=== PATIENT | female | born 1960 | race African-American/Black ===

== ENCOUNTER 2020-08-02 08:58 | Emergency (ER) | payer OTHER, SELFPAY ==
--- NOTE | ~2020-08-02 | XR_ITS ---
EXAMINATION: XR knee RT min 4V DATE: 08/02/2020 09:32 INDICATION: Anterior right knee pain following exercise 2 days prior with palpable pop TECHNIQUE: Anteroposterior, 2 oblique and crosstable lateral views of the right knee were obtained COMPARISON: None. FINDINGS: Alignment is normal. No fracture. Joint spaces appear normal although joint space narrowing can be u nderestimated on nonweightbearing imaging. Borderline right knee joint effusion without layering lipo hemarthrosis. Mild prepatellar edema. IMPRESSION: 1. Borderline right knee joint effusion. No osseous abnormality. Reviewed, dictated and finalized at location B.
--- NOTE | 2020-08-02 09:04 | ED.GENADULT ---
HPI - General Adult General Chief complaint: Extremity Injury, Lower Stated complaint: right knee pain Time Seen by Provider: 08/02/20 09:20 Source: patient Mode of arrival: ambulatory Limitations: no limitations History of Present Illness HPI narrative: 59-year-old female patient presents to the [facility] with complaints of right knee pain. Patient states she was working out about 2 days ago and states that she heard a pop and since then she has had swelling and pain to the knee. Patient states it does hurt to extend as well as bend the knee. Patient states she has been icing as well as taking Tylenol for the pain. Patient does have history of RA and does take Plaquenil for this. Related Data Home Medications Medication Instructions Recorded Confirmed Daily Multivitamin 08/02/20 bacillus coagulans-inulin cap PO 08/02/20 [Probiotic Formula (inulin)] cetirizine mg 08/02/20 fluticasone propionate INTRANASAL 08/02/20 hydroxychloroquine 08/02/20 Allergies Allergy/AdvReac Type Severity Reaction Status Date / Time Sulfa (Sulfonamide Allergy Mild Anaphylaxis Verified 08/02/20 09:28 Antibiotics) ephedrine Allergy Unknown Anaphylaxis Verified 08/02/20 09:28 penicillin G Allergy Unknown Anaphylaxis Verified 08/02/20 09:28 phenobarbital Allergy Unknown Anaphylaxis Verified 08/02/20 09:28 theophylline Allergy Unknown Anaphylaxis Verified 08/02/20 09:28 Review of Systems Review of Systems: Narrative: CONSTITUTIONAL: Denies fever, chills, or sweats. EYES: Denies visual changes, redness, or discharge. ENT: Denies rhinorrhea, congestion, sore throat, or otalgia. CARDIOVASCULAR: Denies chest pain, palpitations, or edema. RESPIRATORY: Denies cough or dyspnea. GASTROINTESTINAL: Denies abdominal pain, nausea, vomiting, or diarrhea. GENITOURINARY: Denies dysuria or hematuria. SKIN: Denies rash or itching. MUSCULOSKELETAL: Denies back pain, joint pain, or myalgia. Positive right knee pain NEUROLOGIC: Denies headache, numbness, or weakness. PSYCHIATRIC: Denies anxiety or depression. [facility] Past Medical History Medical History (Updated 08/02/20 @ 09:08 by JUSTIN Carroll) Asthma Bacterial meningitis Blood disorder IgA deficiency Cardiac disorder Questionable hole in heart, pericarditis 30 years ago Carpal tunnel syndrome Bilateral wrist Chronic back pain Sciatica, 2 herniated disks Diverticulitis Eczema Endometriosis Fractures Ankle Peripheral neuropathy Rheumatoid arthritis Surgical History Surgical History (Updated 08/02/20 @ 09:08 by JUSTIN Carroll) History of appendectomy Comments At the time of my signature I agree with nursing past medical history, surgical, social, and family history. There is no relevant family history pertinent to the presenting complaint. Exam Narrative: Exam Narrative: GENERAL: Well-appearing, well-nourished, and in no acute distress. HEAD: Normocephalic, atraumatic. EYES: PERRLA and EOMI. ENT: Nares clear, no rhinorrhea or epistaxis. Mucous membranes moist. NECK: Supple. No lymphadenopathy CHEST: Clear to auscultation. No respiratory distress. HEART: Regular rate and rhythm. No murmur heard. Normal peripheral pulses. ABDOMEN: Soft, nontender, nondistended, normal active bowel sounds. EXTREMITIES: Patient is able to bear weight and ambulate but does have increase in pain to the right knee when doing so. No surface trauma, STS. No overlying erythema or warmth. The R knee is without obvious asymmetry or deformity when compared to the L knee. Patient is able to do deep knee bend with symmetry, fully extend knee but does complain of pain with these motions, no pain with internal and external rotation. tendernss to palpation of the patella, patient does appear to have effusion and ballottement to the top of the right knee. No tenderness over the infrapatellar tendon. No tenderness over the medial or lateral joint lone ot the medial or lateral tibial plateaus. no tend
[2020-08-02 09:08] VITALS: BP 126/71; PULSE 86; RESP 16; TEMP 36.8; O2SAT 99
== END 2020-08-02 10:07 | disposition home or self-care (01) ==
PROVIDERS: Emergency Provider Nurse Practitioner Family
DX: M25.461 Effusion, right knee (principal); J45.909 Unspecified asthma, uncomplicated; D80.2 Selective deficiency of immunoglobulin A [IgA]; N80.9 Endometriosis, unspecified; G62.9 Polyneuropathy, unspecified; M06.9 Rheumatoid arthritis, unspecified
CPT/HCPCS: 73564; 99213; G0463

== ENCOUNTER 2020-08-23 08:38 | Emergency (ER) | payer OTHER, SELFPAY ==
--- NOTE | ~2020-08-23 | US_ITS ---
EXAMINATION: US venous doppler LE EXAM DATE: 08/23/2020 11:53 INDICATION: swelling SWELLING . TECHNIQUE: Multiple grayscale, color flow and Doppler images of the lower extremity deep venous syste ms bilaterally were obtained and reviewed. There is no prior study for comparison. FINDINGS: Right side: The right common femoral, femoral and profunda veins demonstrate normal color flow, respi ratory variation, augmentation and compressibility. Compressibility, color flow confirmed within the right popliteal, posterior tibial, peroneal, and greater saphenous veins. Left side: The left common femoral, femoral and profunda veins demonstrate normal color flow, respira tory variation, augmentation and compressibility. Compressibility, color flow confirmed within the l eft popliteal, posterior tibial, peroneal, and greater saphenous veins. IMPRESSION: 1. No lower extremity deep venous thrombosis bilaterally. Reviewed, dictated and finalized at location B. TECHNICIAN
--- NOTE | ~2020-08-23 | XR_ITS ---
EXAMINATION: XR chest 1V portable EXAM DATE: 08/23/2020 11:00 INDICATION: Bilateral leg edema. Rheumatoid arthritis. Lethargic. TECHNIQUE: Portable AP frontal chest x-ray was obtained. Comparison is made to prior examination from 11/22/2009. FINDINGS: Left lower lobe granuloma. The lungs are otherwise clear. There are no pleural effusions. Cardiac silhouette is prominent but magnified on this AP technique. There is no pneumothorax suspe cted. The bones and soft tissues are unremarkable. IMPRESSION: Normal chest x-ray exam. Reviewed, dictated and finalized at location B. STACKER OPERATOR IMPRESSION: Normal chest x-ray exam.
[2020-08-23 08:42] VITALS: BP 157/105; PULSE 73; RESP 16; TEMP 36.3; O2SAT 100
[2020-08-23 09:00] VITALS: BP 146/96; PULSE 70; RESP 16; TEMP 37.2; O2SAT 100
--- NOTE | 2020-08-23 10:18 | ECG_ITS ---
Measurements Intervals [place] Rate: 68 P: 15 AL: 163 QRS: -21 QRSD: 97 T: 21 QT: 371 QTc: 395 Interpretive Statements SINUS RHYTHM LOW QRS VOLTAGE IN PRECORDIAL LEADS BASELINE ARTIFACT- I, II, III, AVR, AVL, AVF, V1 BORDERLINE ECG Electronically Signed On 08-23-2020 15:46:29 VERIFYING SPECIALIST by Lux Vu D.O.
[2020-08-23 11:06] LABS: Basophils Percent Auto 0.4 % (0.2-1.2); Eosinophils Absolute Auto 0.2 K/mm3 (0-0.3); Eosinophils Percent Auto 3.3 % (0-4.4); Hematocrit 34.7 % (37.0-47.0); Hemoglobin 11.9 g/dL (12.0-15.0); Lymphocytes Absolute Auto 1.94 K/mm3 (0.9-3.2); Lymphocytes Percent Auto 40.6 % (18.3-44.2); Mean Corpuscular HGB Conc 34.3 g/dl (32-36); Mean Corpuscular Hemoglobin 29.4 pg (26-34); Mean Corpuscular Volume 85.7 fl (80-100); Mean Platelet Volume 10.2 fl (7.4-10.4); Monocytes Absolute Auto 0.3 K/mm3 (0.1-0.6); Monocytes Percent Auto 5.4 % (2.6-8.5); Neutrophils Absolute Auto 2.4 K/mm3 (1.3-6.7); Neutrophils Percent Auto 50.3 % (45.5-73.1); Platelet Count Result 224 k/mm3 (150-375); Red Blood Count 4.05 M/mm3 (4.2-5.4); Red Cell Distribution Width 11.9 % (11.5-14.5); White Blood Count 4.8 K/mm3 (4.5-10.0)
[2020-08-23 11:17] LABS: INR 1.1; Prothrombin Time 14.3 Seconds (11.1-14.7)
[2020-08-23 11:18] LABS: Partial Thromboplastin Time 29.7 SECONDS (22.3-36.8)
[2020-08-23 11:22] LABS: Anion Gap 3 mmol/L (8-16); Blood Urea Nitrogen 23 mg/dL (7-17); Calcium 8.9 mg/dL (8.4-10.2); Carbon Dioxide 30 mmol/L (22-30); Chloride 107 mmol/L (98-107); Estimated CRCL calculation 55 ml/min; Estimated Glomerular Filt Rate > 60; Glucose 84 mg/dL (65-105); Potassium 4.4 mmol/L (3.4-5.0); Sodium 140 mmol/L (137-145)
[2020-08-23 11:35] LABS: NT Pro B Type Natriuretic Pept 512 PG/ML (5-100); Troponin I < 0.012 ng/mL (0.000-0.034)
[2020-08-23 12:06] VITALS: BP 146/96; PULSE 64; RESP 12; O2SAT 99
--- NOTE | 2020-08-23 12:42 | ED.GENADULT ---
HPI - General Adult General Chief complaint: Extremity Problem,Nontraumatic Stated complaint: swelling lower legs Time Seen by Provider: 08/23/20 10:12 Source: patient Mode of arrival: ambulatory Limitations: no limitations History of Present Illness HPI narrative: Patient is a 60-year-old female who presents to emergency department for evaluation of lower extremity swelling bilaterally that has been present now for the last several days roughly a week patient denies similar occurrence in the past or other complaints and is otherwise resting comfortably in the room in no distress upon arrival denying any pain. Patient notes that she has been having intermittent headaches in the recent past Related Data Home Medications Medication Instructions Recorded Confirmed Daily Multivitamin DAILY 08/02/20 cetirizine mg DAILY 08/02/20 fluticasone propionate INTRANASAL BID 08/02/20 hydroxychloroquine DAILY 08/02/20 Allergies Allergy/AdvReac Type Severity Reaction Status Date / Time ephedrine Allergy Intermediate Anaphylaxis Verified 08/23/20 08:47 penicillin G Allergy Intermediate Anaphylaxis Verified 08/23/20 08:47 phenobarbital Allergy Intermediate Anaphylaxis Verified 08/23/20 08:47 Sulfa (Sulfonamide Allergy Intermediate Anaphylaxis Verified 08/23/20 08:47 Antibiotics) theophylline Allergy Intermediate Anaphylaxis Verified 08/23/20 08:47 Review of Systems Review of Systems: All systems reviewed & are unremarkable except as noted in HPI and below PMFSH Past Medical History Medical History Asthma Bacterial meningitis Blood disorder IgA deficiency Cardiac disorder Questionable hole in heart, pericarditis 30 years ago Carpal tunnel syndrome Bilateral wrist Chronic back pain Sciatica, 2 herniated disks Diverticulitis Eczema Endometriosis Fractures Ankle Peripheral neuropathy Rheumatoid arthritis Surgical History Surgical History History of appendectomy Social History Social History Gender identity (if verbalized by the patient): Female Exam Narrative: Exam Narrative: GENERAL: Well-appearing, well-nourished, and in no acute distress. HEAD: Normocephalic, atraumatic. EYES: PERRLA and EOMI. ENT: Nares clear, no rhinorrhea or epistaxis. Mucous membranes moist. NECK: Supple. No adenopathy or masses. No carotid bruits or JVD CHEST: Clear to auscultation. No respiratory distress. No wheezes rales or rhonchi HEART: Regular rate and rhythm. No murmur heard. Normal peripheral pulses. EXTREMITIES: Normal range of motion. 1+ edema to the bilateral lower extremities SKIN: Warm, dry, no rash. NEURO: No focal deficits. Alert and oriented x3. Neurovascularly intact. Capillary refill less than 2 seconds PSYCH: Normal mood and affect. Course Course Emergency Course: Patient in the room in no distress aware of case findings treatment plan diagnosis Vital Signs Vital signs: Vital Signs Temperature 97.4 F L 08/23/20 08:42 Pulse Rate 73 08/23/20 08:42 Respiratory Rate 16 08/23/20 08:42 Blood Pressure 157/105 H 08/23/20 08:42 Pulse Oximetry 100 08/23/20 08:42 Temperature 98.9 F 08/23/20 09:00 Pulse Rate 64 08/23/20 12:06 Respiratory Rate 12 08/23/20 12:06 Blood Pressure 146/96 H 08/23/20 12:06 Pulse Oximetry 99 08/23/20 12:06 Medical Decision Making [facility] Narrative Medical decision making narrative: Patients injury or pain is consistent with musculoskeletal etiology. No signs of neurological or vascular compromise on exam. Compartments and tisues are soft without signs of compartment syndrome. No high risk changes in the blood work or imaging will be referred back to primary care to watch for renal insufficiency pain is felt appropriate for further evaluation on an outpatient basis. Vital Signs Vital Sign
[2020-08-23 13:01] VITALS: BP 145/88; PULSE 67; RESP 16; O2SAT 100
== END 2020-08-23 13:03 | disposition home or self-care (01) ==
PROVIDERS: Emergency Medicine Emergency Medical Services; Emergency Provider Emergency Medicine
DX: R60.0 Localized edema (principal); N28.9 Disorder of kidney and ureter, unspecified; J45.909 Unspecified asthma, uncomplicated; N80.9 Endometriosis, unspecified; M06.9 Rheumatoid arthritis, unspecified; G62.9 Polyneuropathy, unspecified; D80.2 Selective deficiency of immunoglobulin A [IgA]
CPT/HCPCS: 36415; 71045; 80048; 83880; 84484; 85025; 85610; 85730; 93005; 93970; 96365; 99284; J0131

== ENCOUNTER 2020-09-03 11:54 | Emergency (ER) | payer OTHER, SELFPAY ==
[2020-09-03] VITALS (18 sets, daily range): BP systolic 146–171; BP diastolic 85–108; PULSE 74–117; RESP 12–33; TEMP 36.7; O2SAT 95–100
--- NOTE | ~2020-09-03 | XR_ITS ---
EXAMINATION: XR chest 1V portable EXAM DATE: 09/03/2020 15:03 INDICATION: Shortness of breath, high blood pressure TECHNIQUE: Portable AP frontal chest x-ray was obtained. There is no prior study for comparison. FINDINGS: The lungs are clear. There are no pleural effusions. Cardiac silhouette is prominent but magnified on this AP technique. There is no pneumothorax suspected. The bones and soft tissues are unremarkable. IMPRESSION: No acute cardiopulmonary findings. Reviewed, dictated and finalized at location A. MACHINE OPERATOR
--- NOTE | 2020-09-03 13:51 | ECG_ITS ---
Measurements Intervals [place] Rate: 73 P: 50 HI: 162 QRS: 10 QRSD: 105 T: 52 QT: 382 QTc: 421 Interpretive Statements SINUS RHYTHM LOW QRS VOLTAGE IN PRECORDIAL LEADS BASELINE ARTIFACT- V5 BORDERLINE ECG Electronically Signed On 09-03-2020 15:59:44 SOFTWARE TEAM LEADER by Lux Vu D.O.
[2020-09-03 14:21] LABS: Basophils Percent Auto 0.5 % (0.2-1.2); Eosinophils Absolute Auto 0.2 K/mm3 (0-0.3); Eosinophils Percent Auto 2.5 % (0-4.4); Hematocrit 38.3 % (37.0-47.0); Hemoglobin 13.2 g/dL (12.0-15.0); Immature Granulocyte Absolute 0.01 K/mm3 (0.00-0.031); Immature Granulocyte Percent A 0.2 % (0-0.5); Lymphocytes Absolute Auto 1.99 K/mm3 (0.9-3.2); Lymphocytes Percent Auto 31.6 % (18.3-44.2); Mean Corpuscular HGB Conc 34.5 g/dl (32-36); Mean Corpuscular Hemoglobin 29.9 pg (26-34); Mean Corpuscular Volume 86.8 fl (80-100); Mean Platelet Volume 9.8 fl (7.4-10.4); Monocytes Absolute Auto 0.4 K/mm3 (0.1-0.6); Neutrophils Absolute Auto 3.7 K/mm3 (1.3-6.7); Neutrophils Percent Auto 59.2 % (45.5-73.1); Platelet Count Result 243 k/mm3 (150-375); Red Blood Count 4.41 M/mm3 (4.2-5.4); Red Cell Distribution Width 11.9 % (11.5-14.5); White Blood Count 6.3 K/mm3 (4.5-10.0)
[2020-09-03 14:33] LABS: Alanine Aminotransferase 26 U/L (4-35); Albumin Level 3.5 g/dL (3.5-5.1); Alkaline Phosphatase 76 U/L (38-126); Anion Gap 4 mmol/L (8-16); Aspartate Amino Transferase 39 U/L (14-36); Bilirubin,Total 0.5 mg/dL (0.2-1.3); Blood Urea Nitrogen 19 mg/dL (7-17); Carbon Dioxide 30 mmol/L (22-30); Chloride 106 mmol/L (98-107); Estimated CRCL calculation 57 ml/min; Estimated Glomerular Filt Rate > 60; Glucose 85 mg/dL (65-105); Potassium 3.9 mmol/L (3.4-5.0); Sodium 140 mmol/L (137-145)
[2020-09-03] MEDS: hydroCHLOROthiazide 25 MG TABLET PO (14:34)
[2020-09-03 14:41] LABS: NT Pro B Type Natriuretic Pept 681 PG/ML (5-100)
--- NOTE | 2020-09-03 14:46 | ED.GENADULT ---
HPI - General Adult General Chief complaint: Unspecified Stated complaint: htn, swelling Time Seen by Provider: 09/03/20 13:49 Source: patient History of Present Illness HPI narrative: Patient is a 60 y/o female complaining of leg swelling and hypertension for last 2 weeks. She states that her BP was 170s/110s. She contacted her provider's office and was told to come to ED evaluation. There is no alleviating or exacerbating factor. She has no chest pain. She has some intermittent headache on the right side. Related Data Home Medications Medication Instructions Recorded Confirmed Daily Multivitamin DAILY 08/02/20 08/27/20 cetirizine mg DAILY 08/02/20 08/27/20 fluticasone propionate INTRANASAL BID 08/02/20 08/27/20 hydroxychloroquine DAILY 08/02/20 08/27/20 tramadol 50 mg tablet 50 mg PO Q4H PRN 08/27/20 08/27/20 Allergies Allergy/AdvReac Type Severity Reaction Status Date / Time ephedrine Allergy Intermediate Anaphylaxis Verified 08/27/20 12:32 penicillin G Allergy Intermediate Anaphylaxis Verified 08/27/20 12:32 phenobarbital Allergy Intermediate Anaphylaxis Verified 08/27/20 12:32 Sulfa (Sulfonamide Allergy Intermediate Anaphylaxis Verified 08/27/20 12:32 Antibiotics) theophylline Allergy Intermediate Anaphylaxis Verified 08/27/20 12:32 Review of Systems Constitutional: Constitutional: Denies chills, Denies fever(s), Reports headache(s) and Denies weakness Eyes: Eyes: Denies blurry vision ENT: Reports headache(s) and Denies neck pain Cardiovascular: Cardiovascular: Denies chest pain, Reports leg edema and Denies dyspnea Respiratory: Respiratory: Denies cough and Denies dyspnea Gastrointestinal: Gastrointestinal: Denies abdominal pain, Denies diarrhea, Denies nausea and Denies vomiting Genitourinary: Genitourinary: Denies hematuria and Denies dysuria Musculoskeletal: Musculoskeletal: Denies back pain and Denies neck pain Neurologic: Reports headache(s) and Denies weakness PMFSH Past Medical History Medical History Asthma Bacterial meningitis Blood disorder IgA deficiency Cardiac disorder Questionable hole in heart, pericarditis 30 years ago Carpal tunnel syndrome Bilateral wrist Chronic back pain Sciatica, 2 herniated disks Diverticulitis Eczema Endometriosis Fractures Ankle Peripheral neuropathy Rheumatoid arthritis Surgical History Surgical History H/O laparoscopy History of appendectomy Family History Family History Mother Hypertension Alzheimer disease Heart disease Father COPD (chronic obstructive pulmonary disease) Emphysema, unspecified Heart disease Sibling Arthritis Lupus Heart disease Social History Social History Smoking status: Never smoker Gender identity (if verbalized by the patient): Female Exam Const: General: no acute distress and well developed Orientation/consciousness: oriented to person, oriented to place, oriented to time and patient oriented x3 HENMT: Head: normocephalic Ears: external ears normal General nose exam: Normal external nose present Eyes: General: appearance normal, both eyes and all related structures Conjunctivae: conjunctivae normal Neck: Neck: normal visual inspection and full ROM Chest: Chest palpation & inspection: normal inspection of the chest and no tenderness Resp: Effort & Inspection: normal respiratory effort Auscultation: clear to auscultation bilaterally Cardio: Rate: regular rate Rhythm: regular rhythm GI: GI Palp: No abdominal tenderness and Yes Soft to palpation Skin: General skin exam: normal color and turgor normal Neuro: General: oriented to person, oriented to place, oriented to time and patient oriented x3 Cognition (Neuro): normal cognition Extrem: General: normal to inspection,
[2020-09-03 15:07] LABS: D Dimer 0.33 ug/mL (<0.48)
[2020-09-03] MEDS: lisinopriL 20 MG TABLET PO (15:51)
[2020-09-03] MEDS: ACETAMINOPHEN 325 MG TABLET 650 MG PO (15:51)
== END 2020-09-03 17:18 | disposition home or self-care (01) ==
PROVIDERS: Emergency Provider Emergency Medicine; PCP Internal Medicine
DX: I10 Essential (primary) hypertension (principal); M79.89 Other specified soft tissue disorders; J45.909 Unspecified asthma, uncomplicated; N80.9 Endometriosis, unspecified; G62.9 Polyneuropathy, unspecified; M06.9 Rheumatoid arthritis, unspecified; D80.2 Selective deficiency of immunoglobulin A [IgA]; R94.31 Abnormal electrocardiogram [ECG] [EKG]
CPT/HCPCS: 36415; 71045; 80053; 83880; 85025; 85380; 93005; 99283; A9270

== ENCOUNTER 2020-09-11 07:40 | Outpatient (CLI) | payer OTHER, SELFPAY ==
--- NOTE | 2020-09-11 07:46 | ECHO_ITS ---
Patient Info Name: Graciela Xiong Age: 60 years : 1960 Gender: Female Ht: 66 in Wt: 203 lbs BSA: 2.10 m2 HR: 74 bpm BP: 152 / 102 mmHg Heart Rhythm: Sinus Rhythm Technical Quality: Good Exam Date: 09/11/2020 8:04 AM Exam Location: [facility] Patient Status: Outpatient Admit Date: 09/11/2020 Staff Ordering Physician: Homar Braden APRN Solder Making Supervisor: Leon Sosa RDCS, RT Attending Provider: Homar Braden APRN Referring Physician: Sampson ORDAZ; Exam Type: CA echo doppler color flow Study Info Indications R60.0 - Localized edema Complete two-dimensional, color flow and Doppler transthoracic echocardiogram is performed. Strain analysis performed. Summary 1. Complete two-dimensional, color flow and Doppler transthoracic echocardiogram is performed. 2. Left ventricular chamber dimension is normal. 3. Left ventricular systolic function is normal, estimated at 60-65%. 4. There is no increased left ventricular wall thickness. 5. The left ventricular diastolic function is normal. 6. Global longitudinal strain is normal at -21 %. 7. There is mild tricuspid valve regurgitation. 8. Dilated inferior vena cava with <50% collapse upon inspiration consistent with elevated right atrial pressure, 15 mmHg. Left Ventricle Left ventricular chamber dimension is normal. Left ventricular systolic function is normal, estimated at 60-65%. There is no increased left ventricular wall thickness. The left ventricular diastolic function is normal. Global longitudinal strain is normal at -21 %. Right Ventricle Right ventricular chamber dimension is normal. Right ventricular systolic function is normal. Left Atria Left atrial chamber dimension is normal. Right Atria Right atrial chamber dimension is normal. Atrial Septum Intact interatrial septum visualized by color flow imaging. Aortic Valve The aortic valve is trileaflet. There is mild aortic valve sclerosis. There is no aortic valve stenosis. There is trace aortic valve regurgitation. Pulmonic Valve The pulmonic valve is normal. There is no pulmonic valve stenosis. There is trace pulmonic regurgitation. Mitral Valve The mitral valve has normal leaflets. There is no mitral valve stenosis. There is trace mitral valve regurgitation. Tricuspid Valve The tricuspid valve leaflets are normal. There is no significant tricuspid valve stenosis. There is mild tricuspid valve regurgitation. No pulmonary hypertension, estimated pulmonary arterial systolic pressure is 29 mmHg. Pericardium/Pleural The pericardium appears normal. There is no pericardial effusion. Inferior Vena Cava Dilated inferior vena cava with <50% collapse upon inspiration consistent with elevated right atrial pressure, 15 mmHg. Aorta The aortic root size at the sinus of Valsalva is normal. Left Ventricular Outflow Tract Name Value Normal LVOT 2D LVOT Diameter 2.0 cm LVOT Doppler LVOT Peak Gradient 3 mmHg LVOT Mean Gradient 1 mmHg LVOT VTI 17 cm
== END 2020-09-11 07:41 | disposition home or self-care (01) ==
PROVIDERS: PCP Internal Medicine; Visit Provider Nurse Practitioner
DX: R60.0 Localized edema (principal); I36.1 Nonrheumatic tricuspid (valve) insufficiency
CPT/HCPCS: 93306

== ENCOUNTER 2020-11-11 16:35 | Outpatient (CLI) | payer OTHER, SELFPAY ==
--- NOTE | ~2020-11-11 | US_ITS ---
EXAMINATION: US retroperitoneal comp DATE: 11/11/2020 17:02 INDICATION: Persistent proteinuria TECHNIQUE: Multiple ultrasound grayscale images of the kidneys were obtained. COMPARISON: None. FINDINGS: The right kidney measures 9.9 x 5.1 x 4.0 cm. The left kidney measures 9.9 x 5.2 x 6.2 cm. The kidney s demonstrate normal echogenicity. There is no hydronephrosis in either kidney. No stones identified . The bladder is normal. IMPRESSION: 1. Normal kidneys without hydronephrosis. Reviewed, dictated and finalized at location B. IONHOLDER INFORMATION CLERK
== END 2020-11-11 16:36 | disposition home or self-care (01) ==
PROVIDERS: PCP Internal Medicine; Visit Provider Internal Medicine Nephrology
DX: R80.1 Persistent proteinuria, unspecified (principal)
CPT/HCPCS: 76770

== ENCOUNTER → 2020-11-30 00:45 | Outpatient (CLI) | payer OTHER, SELFPAY ==
[2020-11-30 19:49] LABS: SARS-CoV-2 RNA PCR Negative
== END ==
PROVIDERS: PCP Internal Medicine; Visit Provider Internal Medicine Nephrology
DX: Z01.812 Encounter for preprocedural laboratory examination (principal); Z20.822 Contact with and (suspected) exposure to COVID-19
CPT/HCPCS: C9803; U0003; U0005

== ENCOUNTER 2020-12-03 07:44 | Outpatient (CLI) | payer OTHER, SELFPAY ==
[2020-11-27 13:14] VITALS: BMI 32.6
[2020-12-03] VITALS (11 sets, daily range): BP systolic 122–142; BP diastolic 82–97; PULSE 66–79; RESP 12–20; O2SAT 100
--- NOTE | ~2020-12-03 | US_ITS ---
EXAMINATION: US biopsy renal DATE: 12/03/2020 10:04 INDICATION: Proteinuria and hematuria TECHNIQUE: The procedure including the risks, benefits, and alternatives was discussed with the patie nt. Risks discussed included bleeding and infection. The patient understood the risks and agreed to p roceed. A timeout was performed to verify the patient's name, date of , and procedure to be p erformed. The skin overlying the left kidney was prepped and draped in usual sterile fashion. Anest hetic was administered with 1% lidocaine subcutaneously. An 18 gauge core biopsy needle was then use d to obtain 3 core biopsy specimens under continuous sonographic guidance. The entry site was cleaned and dressed. There were no immediate complications. FINDINGS: Ultrasound images demonstrate the needle in the kidney. IMPRESSION: 1. Ultrasound-guided random left kidney core needle biopsy. Reviewed, dictated and finalized at location A. ITY BILL COLLECTION CLERK
[2020-12-03 08:08] LABS: Mean Platelet Volume 9.6 fl (7.4-10.4); Platelet Count Result 218 k/mm3 (150-375)
[2020-12-03 08:18] LABS: INR 0.9; Prothrombin Time 13.1 Seconds (11.1-14.7)
--- NOTE | 2020-12-03 13:58 | SUR.PHASEII ---
2264 - dr lopez in room talking with pt
--- NOTE | 2020-12-03 14:07 | SUR.PHASEII ---
1350 - iv discontinued. catheter intact
== END 2020-12-03 14:00 | disposition home or self-care (01) ==
PROVIDERS: Radiology Diagnostic Radiology; PCP Internal Medicine; Visit Provider Internal Medicine Nephrology
DX: R31.9 Hematuria, unspecified (principal)
CPT/HCPCS: 36415; 50200; 76942; 85049; 85610; 88300; 88305; 88313; 88329; 88346; 88348; 88350

== ENCOUNTER 2020-12-18 09:56 | Outpatient (CLI) | payer OTHER, SELFPAY | END 2020-12-18 09:57 | disposition home or self-care (01) | LOC: ANHCOVIDVC 09:56 | PROVIDERS: PCP Internal Medicine | DX: Z23 Encounter for immunization (principal) | CPT/HCPCS: 0001A; 91300 ==

== ENCOUNTER 2021-01-08 09:47 | Outpatient (CLI) | payer OTHER, SELFPAY | END 2021-01-08 09:48 | disposition home or self-care (01) | LOC: ANHCOVIDVC 09:47 | PROVIDERS: PCP Internal Medicine | DX: Z23 Encounter for immunization (principal) | CPT/HCPCS: 0002A; 91300 ==

== ENCOUNTER → 2021-02-24 13:45 | Outpatient (CLI) | payer OTHER, SELFPAY ==
--- NOTE | ~2021-02-24 | US_ITS ---
EXAMINATION: US venous doppler [facility] DATE: 02/24/2021 14:19 INDICATION: Lower limb edema. TECHNIQUE: Grayscale ultrasound images without and with compression and Doppler ultrasound images of the bilateral lower extremity veins were obtained. COMPARISON: Ultrasound 08/23/2020 FINDINGS: The visualized portions of right common femoral vein, profunda (deep) femoral vein, femoral vein, pop liteal vein, peroneal veins, posterior tibial veins, and greater saphenous vein outflow are patent. T here is a large right-sided Ribera's cyst. The visualized portions of left common femoral vein, profunda femoral vein, femoral vein, popliteal v ein, peroneal veins, posterior tibial veins, and greater saphenous vein outflow are patent. IMPRESSION: 1. No deep venous thrombosis. 2. Large right-sided Ribera's cyst. Reviewed, dictated and finalized at location B.
== END ==
PROVIDERS: Visit Provider Internal Medicine Nephrology
DX: R60.1 Generalized edema (principal); M71.21 Synovial cyst of popliteal space [Baker], right knee
CPT/HCPCS: 93970

== ENCOUNTER 2021-07-11 09:25 | Outpatient (CLI) | payer OTHER, SELFPAY ==
--- NOTE | ~2021-07-11 | XR_ITS ---
EXAMINATION: XR chest 2V EXAM DATE: 07/11/2021 09:52 INDICATION: Mid to low back pain. TECHNIQUE: Frontal and lateral projections of the chest obtained and reviewed. Comparison is made to prior examination from 09/03/2020. FINDINGS: Left lower lobe granuloma. The lungs are otherwise clear. There are no pleural effusions. The cardiomediastinal silhouette is within normal limits. There is no pneumothorax suspected. The bones and soft tissues are unremarkable. IMPRESSION: No acute cardiopulmonary findings. Reviewed, dictated and finalized at location B.
== END 2021-07-11 09:26 | disposition home or self-care (01) ==
LOC: ANHIMG 09:30
PROVIDERS: PCP Internal Medicine; Visit Provider Internal Medicine Nephrology
DX: M54.9 Dorsalgia, unspecified (principal)
CPT/HCPCS: 71046

== ENCOUNTER 2021-09-02 12:30 | Outpatient (RCR) | payer OTHER, SELFPAY ==
[2021-06-10 14:14] VITALS: BMI 32.8
[2021-06-10 14:16] VITALS: BMI 32.8
[2021-09-02 12:35] VITALS: BMI 32.7
== END 2021-09-08 14:47 | disposition home or self-care (01) ==
LOC: ANHDMC 12:30
PROVIDERS: PCP Internal Medicine; Visit Provider Nurse Practitioner
DX: R80.9 Proteinuria, unspecified (principal); N05.0 Unspecified nephritic syndrome with minor glomerular abnormality; Z71.3 Dietary counseling and surveillance
CPT/HCPCS: 97802; 97803

== ENCOUNTER 2021-10-02 14:53 | Outpatient (RCR) | payer OTHER, SELFPAY ==
[2021-10-02 14:59] VITALS: BMI 33.5
[2021-10-02 15:02] VITALS: BMI 33.5
== END 2021-12-22 14:00 | disposition home or self-care (01) ==
LOC: ANHDMC 14:53
PROVIDERS: PCP Internal Medicine; Visit Provider Nurse Practitioner
DX: R80.9 Proteinuria, unspecified (principal); N05.0 Unspecified nephritic syndrome with minor glomerular abnormality; Z71.3 Dietary counseling and surveillance
CPT/HCPCS: 97803

== ENCOUNTER 2022-01-08 10:19 | Outpatient (CLI) | payer OTHER, SELFPAY ==
--- NOTE | 2022-01-08 11:30 | NEURO_ITS ---
Impression: # Complains of numbness of right hand. # Right Carpal Tunnel Syndrome. # No ulnar neuropathy. # Normal needle/EMG exam. Nerve Conduction Studies Anti Sensory Summary Table Stim Site NR Peak (ms) P-T Amp (?V) Site1 Site2 Delta-P (ms) Dist (cm) Jose (m/s) Right Median Anti Sensory (2-3nd Digit) Wrist 4.9 5.6 Wrist 2-3nd Digit 4.9 14.0 29 Wrist 5.6 16.9 Wrist 2-3nd Digit 4.9 14.0 29 Right Radial Anti Sensory (Base 1st Digit) Wrist 2.3 9.4 Wrist Base 1st Digit 2.3 0.0 Right Ulnar Anti Sensory (5th Digit) Wrist 2.6 30.9 Wrist 5th Digit 2.6 14.0 54 Motor Summary Table Stim Site NR Onset (ms) O-P Amp (mV) Site1 Site2 Delta-0 (ms) Dist (cm) Jose (m/s) Right Median Motor (Abd Poll Brev) Wrist 3.8 2.2 Elbow Wrist 4.8 27.0 56 Elbow 8.6 2.1 Right Ulnar Motor (Abd Dig Minimi) Wrist 2.3 5.6 A Elbow Wrist 4.9 29.0 59 A Elbow 7.2 4.6 F Wave Studies NR F-Lat (ms) L-R F-Lat (ms) Right Median (Mrkrs) (Abd Poll Brev) 27.19 Right Ulnar (Mrkrs) (Abd Dig Min) 28.15 EMG Side Muscle Nerve Root Ins Act Fibs Amp Dur Recrt Comment Right 1stDorInt Ulnar C8-T1 Nml Nml Nml Nml Nml Right Ext Indicis Radial (Post Int) C7-8 Nml Nml Nml Nml Nml Right Ext Digitorum Radial (Post Int) C7-8 Nml Nml Nml Nml Nml Right BrachioRad Radial C5-6 Nml Nml Nml Nml Nml Right PronatorTeres Median C6-7 Nml Nml Nml Nml Nml Right Abd Poll Brev Median C8-T1 Nml Nml Nml Nml Nml MTDD
== END 2022-01-08 10:20 | disposition home or self-care (01) ==
LOC: ANHNEURO 10:21
PROVIDERS: PCP Internal Medicine; Visit Provider Nurse Practitioner
DX: R20.2 Paresthesia of skin (principal); G56.01 Carpal tunnel syndrome, right upper limb
CPT/HCPCS: 95886; 95909

== ENCOUNTER 2022-05-04 15:16 | Outpatient (CLI) | payer OTHER, SELFPAY ==
[2022-05-04 16:02] LABS: Hematocrit 36.9 % (37.0-47.0); Hemoglobin 12.6 g/dL (12.0-15.0)
[2022-05-04 16:15] LABS: Anion Gap 5 mmol/L (8-16); Blood Urea Nitrogen 11 mg/dL (7-17); Calcium 9.3 mg/dL (8.4-10.2); Carbon Dioxide 29 mmol/L (22-30); Chloride 104 mmol/L (98-107); Estimated Glomerular Filt Rate > 60; Glucose 86 mg/dL (65-110); Potassium 3.9 mmol/L (3.4-5.0); Sodium 138 mmol/L (137-145)
[2022-05-04 16:17] LABS: INR 1.2; Prothrombin Time 14.6 Seconds (11.1-14.7)
[2022-05-04 16:18] LABS: Partial Thromboplastin Time 31.7 SECONDS (22.3-36.8)
== END 2022-05-04 15:17 | disposition home or self-care (01) ==
LOC: ANHSURGERY 15:18
PROVIDERS: Anesthesiology; PCP Internal Medicine; Visit Provider Plastic Surgery
DX: Z01.818 Encounter for other preprocedural examination (principal); N05.0 Unspecified nephritic syndrome with minor glomerular abnormality
CPT/HCPCS: 36415; 80048; 85014; 85018; 85610; 85730

== ENCOUNTER 2022-05-06 01:36 | Day surgery (SDC) | payer OTHER, SELFPAY ==
[2022-05-04 09:22] VITALS: BMI 28.4
--- NOTE | 2022-05-04 09:33 | PC.NURSE ---
Report to the Outpatient Waiting Room, entrance under the green pavilion located off [facility], at time 6:00 on date 05/06/22. OR Time: 7:30. - You and your visitor will be asked a series of questions to screen for COVID 19 for your protection. - Only one visitor is allowed at this time. - The patient visitor is requested to leave or wait in car when not with patient. - A mask is required within the hospital. Patients may have clear liquids (water, carbonated beverages, clear teas, apple juice) until 3 hours prior to surgery (4:30) with a maximum of 20 ounces. - No food from midnight until time of surgery Take the following medications with a SIP of water the morning of surgery: NONE Medications to discontinue per physician: VITAMINS Date to take last dose: NO MORE UNTIL AFTER SURGERY Please no make-up, nail turkish, hairspray, perfume, deodorant, or body powder the day of surgery. No jewelry (including any body piercings) or valuables the day of surgery, leave them at home. Please take a shower or bath the night before, or the morning of, surgery with an antibacterial soap. Wear comfortable, loose fitting clothing. - Jewelry must be removed prior to entering the operating room. Rings and piercings that are not removed may be cut off. - The hospital will not accept responsibility for valuables. - Please leave all valuables, including medications, at home the day of surgery. If you are going home after surgery, a licensed commercial truck driver must drive you home. - NO public transportation without another adult. - We recommend that an adult stay with you for 24 hours following discharge. - We also recommend that you do not drive, make important decision, drink alcoholic beverages, or take any drugs that were not prescribed by your health care provider for at least 24 hours after your discharge time. Follow any additional instructions given to you from your surgeon. If you or anyone in your household have experienced Covid symptoms in the past week, please notify your surgeon or the nurse liaison at the phone number below for possible testing. Telephone instructions given to PT - JASBIR WHEELER and asked if any additional questions and then verbalized understanding. Patient advised to call surgeon office or pre surgery nurse liaison [phone] if any additional questions.
[2022-05-06] MEDS: LACTATED RINGERS 1,000 ML 30 ML IV CONT (06:49)
[2022-05-06 06:51] VITALS: BP 111/77; PULSE 73; RESP 16; TEMP 36.7; O2SAT 100
--- NOTE | 2022-05-06 07:12 | WPDANESEPPF ---
Anes - Initial Pre Proc Eval Procedure: Operation Date: 05/06/22 07:30 Proposed Procedures p Right Open Carpal Tunnel Release - Eddie Duffy MD Date/Time: 05/06/22 07:12 Surgeon: Eddie Duffy MD Pre Op Diagnosis: Right Carpal Tunnel Syndrome Patient Data Age: 61 Gender: F Height: 1.68 m Weight: 81 kg Last Vital Signs Temp 98.1 F 05/06/22 06:51 Pulse 73 05/06/22 06:51 Resp 16 05/06/22 06:51 BP 111/77 05/06/22 06:51 Pulse Ox 100 05/06/22 06:51 O2 Del Method Room Air 05/06/22 06:51 Allergies Allergy/AdvReac Type Severity Reaction Status Date / Time ephedrine Allergy Intermediate Anaphylaxis Verified 05/06/22 06:19 penicillin G Allergy Intermediate Anaphylaxis Verified 05/06/22 06:19 phenobarbital Allergy Intermediate Anaphylaxis Verified 05/06/22 06:19 Sulfa (Sulfonamide Allergy Intermediate Anaphylaxis Verified 05/06/22 06:19 Antibiotics) theophylline Allergy Intermediate Anaphylaxis Verified 05/06/22 06:19 Home Medications Medication Instructions Recorded Confirmed Type Daily Multivitamin 1 tab-cap PO DAILY 08/02/20 05/06/22 History cetirizine 10 mg tablet 10 mg PO DAILY #90 tabs 10/03/21 05/06/22 Rx fluticasone propionate 50 2 spray intranasal BID #16 grams 10/03/21 05/06/22 Rx mcg/actuation nasal spray,suspension Patient hx anesthesia problems: none Family hx anesthesia problems: none Results Review: All pre-operative results and documents have been reviewed as part of the pre-operative evaluation. [facility] Past Medical History Medical History 2+ pitting edema Asthma Bacterial meningitis Blood disorder IgA deficiency Cardiac disorder Questionable hole in heart, pericarditis 30 years ago Carpal tunnel syndrome Bilateral wrist Chronic back pain Sciatica, 2 herniated disks Diverticulitis Eczema Elevated blood pressure reading in office without diagnosis of hypertension Endometriosis Fractures Ankle Peripheral neuropathy Proteinuria Rheumatoid arthritis Surgical History Surgical History H/O laparoscopy History of appendectomy Family History Family History Mother Hypertension Alzheimer disease Heart disease Rheumatoid arthritis Father COPD (chronic obstructive pulmonary disease) Emphysema, unspecified Heart disease Sibling Arthritis Lupus Heart disease Rheumatoid arthritis Social History Social History Alcohol intake: current Alcohol use details: 2/MONTH Substance use: never Substance use type: does not use Living arrangements: with family Gender identity (if verbalized by the patient): Female Spiritual care concerns: No Anes - Eval Final PreProcedure Day of Procedure 05/06/22 07:12 Patient weight: normal Heart: regular rate and rhythm Lungs: clear to auscultation Airway: Mallampati scale class II Neurological: alert and oriented Last oral intake: >/= 8 hours ASA classification: II Emergent: no Anesthetic plan: proceed Anesthesia type and monitoring: general GIVS and standard monitoring Results Review: All pre-operative results and documents have been reviewed as part of the pre-operative evaluation. Informed Consent: The patient's anesthetic plan and its attendant risks and benefits were discussed with the patient/family/POA. Questions were solicited and answers provided to the satisfaction of the patient/family/POA.
--- NOTE | 2022-05-06 07:14 | WPDHPUPDATE1 ---
History and Physical Update Update Date/Time: 05/06/22 07:14 History and Physical has been reviewed, including an updated exam of the patient. There are NO changes in the patient's condition. Risks, benefits, and alternatives have been discussed and questions answered. Patient agrees to proceed with procedure.
--- NOTE | 2022-05-06 07:15 | WPDANESEPPF ---
Anes - Initial Pre Proc Eval Procedure: Operation Date: 05/06/22 07:30 Proposed Procedures p Right Open Carpal Tunnel Release - Eddie Duffy MD Date/Time: 05/06/22 07:15 Surgeon: Eddie Duffy MD Pre Op Diagnosis: Right Carpal Tunnel Syndrome Patient Data Age: 61 Gender: F Height: 1.68 m Weight: 81 kg Last Vital Signs Temp 98.1 F 05/06/22 06:51 Pulse 73 05/06/22 06:51 Resp 16 05/06/22 06:51 BP 111/77 05/06/22 06:51 Pulse Ox 100 05/06/22 06:51 O2 Del Method Room Air 05/06/22 06:51 Allergies Allergy/AdvReac Type Severity Reaction Status Date / Time ephedrine Allergy Intermediate Anaphylaxis Verified 05/06/22 06:19 penicillin G Allergy Intermediate Anaphylaxis Verified 05/06/22 06:19 phenobarbital Allergy Intermediate Anaphylaxis Verified 05/06/22 06:19 Sulfa (Sulfonamide Allergy Intermediate Anaphylaxis Verified 05/06/22 06:19 Antibiotics) theophylline Allergy Intermediate Anaphylaxis Verified 05/06/22 06:19 Home Medications Medication Instructions Recorded Confirmed Type Daily Multivitamin 1 tab-cap PO DAILY 08/02/20 05/06/22 History cetirizine 10 mg tablet 10 mg PO DAILY #90 tabs 10/03/21 05/06/22 Rx fluticasone propionate 50 2 spray intranasal BID #16 grams 10/03/21 05/06/22 Rx mcg/actuation nasal spray,suspension Patient hx anesthesia problems: none Family hx anesthesia problems: none Results Review: All pre-operative results and documents have been reviewed as part of the pre-operative evaluation. [facility] Past Medical History Medical History 2+ pitting edema Asthma Bacterial meningitis Blood disorder IgA deficiency Cardiac disorder Questionable hole in heart, pericarditis 30 years ago Carpal tunnel syndrome Bilateral wrist Chronic back pain Sciatica, 2 herniated disks Diverticulitis Eczema Elevated blood pressure reading in office without diagnosis of hypertension Endometriosis Fractures Ankle Peripheral neuropathy Proteinuria Rheumatoid arthritis Surgical History Surgical History H/O laparoscopy History of appendectomy Family History Family History Mother Hypertension Alzheimer disease Heart disease Rheumatoid arthritis Father COPD (chronic obstructive pulmonary disease) Emphysema, unspecified Heart disease Sibling Arthritis Lupus Heart disease Rheumatoid arthritis Social History Social History Alcohol intake: current Alcohol use details: 2/MONTH Substance use: never Substance use type: does not use Living arrangements: with family Gender identity (if verbalized by the patient): Female Spiritual care concerns: No Anes - Eval Final PreProcedure Day of Procedure 05/06/22 07:15 Results Review: All pre-operative results and documents have been reviewed as part of the pre-operative evaluation. Informed Consent: The patient's anesthetic plan and its attendant risks and benefits were discussed with the patient/family/POA. Questions were solicited and answers provided to the satisfaction of the patient/family/POA.
--- NOTE | 2022-05-06 07:33 | W.PM.PROC2 ---
Procedure Note - Detailed Date of Procedure 05/06/22 Pre-op Diagnosis Right Carpal Tunnel Syndrome Post-op Diagnosis Same Procedure Performed Right open carpal tunnel release Surgeon Eddie Duffy MD Anesthesia MAC and Local Description of Procedure The right carpal tunnel was marked on the patient waiting in the holding area. She was taken to the operating room where she was placed supine on the operating table. Time-out was held and confirmed. Extremity was prepped and draped in the usual fashion. She was given IV sedation. The surgical site was remarked and locally infiltrated with 1% lidocaine with epinephrine. The tourniquet was inflated to 250 mmHg. The incision was made in the palm as marked and dissection was carried through the palmar aponeurosis with sharp and blunt dissection. The carpal retinaculum was identified and incised with a 15. Blade. Under 3 point retraction it was divided distally and proximally to completely release it. Unusual anatomy was not noted. The skin was closed with interrupted 5 0 nylon suture. The usual bandage was applied tourniquet was released she is discharged with instructions in wound care and follow-up she has a prescription for hydrocodone 5/325 5. Tourniquet Time 8 Drains No Packing No Pathology None sent Complications No immediate complications Condition Stable Disposition Same day
[2022-05-06] MEDS: BACITRACIN OINTMENT 15 GM TUBE 1 APPLIC TOPICAL (07:34)
[2022-05-06] MEDS: LIDO 1%/EPINEPHRINE 1:100,000 10 ML VIAL 5 ML INFILTRATE (07:34)
[2022-05-06 07:57] VITALS: BP 83/47; PULSE 72; RESP 20
[2022-05-06 08:25] VITALS: BP 102/53; PULSE 72; RESP 20
[2022-05-06 08:55] VITALS: BP 111/74; PULSE 70
== END 2022-05-06 09:25 | disposition home or self-care (01) ==
PROVIDERS: PCP Internal Medicine; Visit Provider Plastic Surgery
PROC: (CPT 64721; principal; 2022-05-06 07:30)
DX: G56.01 Carpal tunnel syndrome, right upper limb (principal)
CPT/HCPCS: 64721; A9270; J2250; J2704; J3010; J7120

== ENCOUNTER 2022-06-19 00:20 | Day surgery (SDC) | payer OTHER, SELFPAY ==
[2022-06-05 14:35] VITALS: BMI 28.0
[2022-06-19 08:19] VITALS: BP 131/70; PULSE 78; RESP 18; TEMP 36.1; O2SAT 100; BMI 28.1
[2022-06-19] MEDS: LACTATED RINGERS 1,000 ML 150 ML IV CONT (08:28)
--- NOTE | 2022-06-19 08:42 | PM.HPGS ---
History of Present Illness History of Present Illness Consent: Risks, benefits, and alternatives have been discussed and questions answered. Patient agrees to proceed with procedure. Chief complaint: family hx colon polyps Narrative: Graciela Xiong is a 61 year old female Referred for colon cancer screening. There is a family history of polyps. Also her sister had a colon resection for some sort of cancer Review of Systems Review of Systems: All systems reviewed & are unremarkable except as noted in HPI and below PMFSH Past Medical History Medical History 2+ pitting edema Asthma Bacterial meningitis Blood disorder IgA deficiency Cardiac disorder Questionable hole in heart, pericarditis 30 years ago Carpal tunnel syndrome Bilateral wrist Chronic back pain Sciatica, 2 herniated disks Diverticulitis Eczema Elevated blood pressure reading in office without diagnosis of hypertension Endometriosis Fractures Ankle Peripheral neuropathy Proteinuria Rheumatoid arthritis Surgical History Surgical History H/O laparoscopy History of appendectomy Family History Family History Mother Hypertension Alzheimer disease Heart disease Rheumatoid arthritis Father COPD (chronic obstructive pulmonary disease) Emphysema, unspecified Heart disease Sibling Arthritis Lupus Heart disease Rheumatoid arthritis Social History Social History Smoking status: Never smoker Alcohol intake: current Alcohol use details: one drink monthly Substance use: never Substance use type: does not use Living arrangements: with family Gender identity (if verbalized by the patient): Female Spiritual care concerns: No Meds Home Medications and Allergies Home Medications Medication Instructions Recorded Confirmed Type Daily Multivitamin 1 tab-cap PO DAILY 08/02/20 06/05/22 History cetirizine 10 mg tablet 10 mg PO DAILY #90 tabs 10/03/21 06/05/22 Rx fluticasone propionate 50 2 spray intranasal BID #16 grams 10/03/21 06/05/22 Rx mcg/actuation nasal spray,suspension Allergies Allergy/AdvReac Type Severity Reaction Status Date / Time ephedrine Allergy Intermediate Anaphylaxis Verified 06/19/22 08:19 penicillin G Allergy Intermediate Anaphylaxis Verified 06/19/22 08:19 phenobarbital Allergy Intermediate Anaphylaxis Verified 06/19/22 08:19 Sulfa (Sulfonamide Allergy Intermediate Anaphylaxis Verified 06/19/22 08:19 Antibiotics) theophylline Allergy Intermediate Anaphylaxis Verified 06/19/22 08:19 Vital Signs Vital Signs - 24 hr 06/19/22 08:19 Temperature 36.1 C L Pulse Rate 78 Respiratory Rate 18 Blood Pressure 131/70 Pulse Oximetry 100 Oxygen Delivery Room Air Exam Resp: Auscultation: clear to auscultation bilaterally Cardio: Rate: regular rate Rhythm: regular rhythm GI: GI Palp: Yes Soft to palpation and No Tenderness to palpation present (GI) Assessment and Plan Assessment and plan (1) Colon cancer screening: Code(s): Z12.11 - Encounter for screening for malignant neoplasm of colon Status: Acute Assessment and Plan: Colonoscopy with possible biopsy or polypectomy or cautery or injection of substances.
--- NOTE | 2022-06-19 08:53 | WPDANESEPPF ---
Anes - Initial Pre Proc Eval Procedure: Operation Date: 06/19/22 09:15 Proposed Procedures p Screening Colonoscopy - John Khan MD Date/Time: 06/19/22 08:53 Surgeon: John Khan MD Pre Op Diagnosis: family hx colon polyps Patient Data Age: 61 Gender: F Height: 1.68 m Weight: 79.1 kg Last Vital Signs Temp 96.9 F L 06/19/22 08:19 Pulse 78 06/19/22 08:19 Resp 18 06/19/22 08:19 BP 131/70 06/19/22 08:19 Pulse Ox 100 06/19/22 08:19 O2 Del Method Room Air 06/19/22 08:19 Allergies Allergy/AdvReac Type Severity Reaction Status Date / Time ephedrine Allergy Intermediate Anaphylaxis Verified 06/19/22 08:19 penicillin G Allergy Intermediate Anaphylaxis Verified 06/19/22 08:19 phenobarbital Allergy Intermediate Anaphylaxis Verified 06/19/22 08:19 Sulfa (Sulfonamide Allergy Intermediate Anaphylaxis Verified 06/19/22 08:19 Antibiotics) theophylline Allergy Intermediate Anaphylaxis Verified 06/19/22 08:19 Home Medications Medication Instructions Recorded Confirmed Type Daily Multivitamin 1 tab-cap PO DAILY 08/02/20 06/05/22 History cetirizine 10 mg tablet 10 mg PO DAILY #90 tabs 10/03/21 06/05/22 Rx fluticasone propionate 50 2 spray intranasal BID #16 grams 10/03/21 06/05/22 Rx mcg/actuation nasal spray,suspension Patient hx anesthesia problems: none Family hx anesthesia problems: none Results Review: All pre-operative results and documents have been reviewed as part of the pre-operative evaluation. [facility] Past Medical History Medical History 2+ pitting edema Asthma Bacterial meningitis Blood disorder IgA deficiency Cardiac disorder Questionable hole in heart, pericarditis 30 years ago Carpal tunnel syndrome Bilateral wrist Chronic back pain Sciatica, 2 herniated disks Diverticulitis Eczema Elevated blood pressure reading in office without diagnosis of hypertension Endometriosis Fractures Ankle Peripheral neuropathy Proteinuria Rheumatoid arthritis Surgical History Surgical History H/O laparoscopy History of appendectomy Family History Family History Mother Hypertension Alzheimer disease Heart disease Rheumatoid arthritis Father COPD (chronic obstructive pulmonary disease) Emphysema, unspecified Heart disease Sibling Arthritis Lupus Heart disease Rheumatoid arthritis Social History Social History Smoking status: Never smoker Alcohol intake: current Alcohol use details: one drink monthly Substance use: never Substance use type: does not use Living arrangements: with family Gender identity (if verbalized by the patient): Female Spiritual care concerns: No Anes - Eval Final PreProcedure Day of Procedure 06/19/22 08:53 Patient weight: normal Heart: regular rate and rhythm Lungs: clear to auscultation Airway: Mallampati scale class II Neurological: alert and oriented Last oral intake: >/= 8 hours ASA classification: II Emergent: no Anesthetic plan: proceed Anesthesia type and monitoring: general GIVS and standard monitoring Results Review: All pre-operative results and documents have been reviewed as part of the pre-operative evaluation. Informed Consent: The patient's anesthetic plan and its attendant risks and benefits were discussed with the patient/family/POA. Questions were solicited and answers provided to the satisfaction of the patient/family/POA.
[2022-06-19 09:38] VITALS: BP 126/106; PULSE 76; RESP 18; O2SAT 100
[2022-06-19 09:48] VITALS: BP 90/57; PULSE 72; RESP 15; O2SAT 100
[2022-06-19 09:52] VITALS: BP 98/63; PULSE 69; RESP 18; O2SAT 100
== END 2022-06-19 10:06 | disposition home or self-care (01) ==
PROVIDERS: PCP Internal Medicine; Visit Provider Internal Medicine Gastroenterology
PROC: 0DJD8ZZ Inspection of Lower Intestinal Tract, Via Natural or Artificial Opening Endoscopic (ICD-10-PCS; CPT 45378; principal; 2022-06-19 09:15)
DX: Z12.11 Encounter for screening for malignant neoplasm of colon (principal); Z80.0 Family history of malignant neoplasm of digestive organs; K64.8 Other hemorrhoids; K57.30 Diverticulosis of large intestine without perforation or abscess without bleeding; J45.909 Unspecified asthma, uncomplicated; L30.9 Dermatitis, unspecified; N80.9 Endometriosis, unspecified; M06.9 Rheumatoid arthritis, unspecified; R80.9 Proteinuria, unspecified; G62.9 Polyneuropathy, unspecified
CPT/HCPCS: 45378; J2704; J7120

== ENCOUNTER 2023-02-28 08:46 | Emergency (ER) | payer OTHER, SELFPAY ==
[2023-02-28 09:06] VITALS: BP 117/76; PULSE 82; RESP 18; TEMP 36.4; O2SAT 100
--- NOTE | 2023-02-28 09:44 | ED.URI ---
HPI - URI/Sore Throat General Chief Complaint: Upper Respiratory Infection Stated Complaint: congestion Time Seen by Provider: 02/28/23 09:36 Source: patient and RN notes reviewed Mode of arrival: ambulatory Limitations: no limitations History of Present Illness HPI Narrative: Patient presents today complaining of 5 day history of sore throat, left ear pain, and cough. States the cough sometimes leads to shortness of breath. History of asthma. Currently rates her sore throat 07/27 and has been taking cough drops, Tylenol, and using salt water without much relief. Denies fever. 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 Related Data Home Medications Medication Instructions Recorded Confirmed Daily Multivitamin 1 tab-cap PO DAILY 08/02/20 02/28/23 Allergies Allergy/AdvReac Type Severity Reaction Status Date / Time ephedrine Allergy Intermediate Anaphylaxis Verified 02/28/23 09:14 penicillin G Allergy Intermediate Anaphylaxis Verified 02/28/23 09:14 phenobarbital Allergy Intermediate Anaphylaxis Verified 02/28/23 09:14 Sulfa (Sulfonamide Allergy Intermediate Anaphylaxis Verified 02/28/23 09:14 Antibiotics) theophylline Allergy Intermediate Anaphylaxis Verified 02/28/23 09:14 lisinopril AdvReac Other Verified 02/28/23 09:15 Review of Systems Review of Systems: CONSTITUTIONAL: Denies body aches, fever, chills, or sweats. EYES: Denies visual changes, redness, or discharge. ENT: Denies rhinorrhea, congestion. + sore throat, left ear pain CARDIOVASCULAR: Denies chest pain, palpitations, or edema. RESPIRATORY: + cough, shortness of breath GASTROINTESTINAL: Denies abdominal pain, nausea, vomiting, or diarrhea. GENITOURINARY: Denies dysuria or hematuria. SKIN: Denies rash, itching, or wounds. MUSCULOSKELETAL: Denies back pain, joint pain, or myalgia. NEUROLOGIC: Denies headache, numbness, tingling, or weakness. PSYCH: Denies depression or anxiety. [facility] Past Medical History Medical History 2+ pitting edema Asthma Bacterial meningitis Blood disorder IgA deficiency Cardiac disorder Questionable hole in heart, pericarditis 30 years ago Carpal tunnel syndrome Bilateral wrist Chronic back pain Sciatica, 2 herniated disks Diverticulitis Eczema Elevated blood pressure reading in office without diagnosis of hypertension Endometriosis Fractures Ankle Peripheral neuropathy Proteinuria Rheumatoid arthritis Surgical History Surgical History H/O laparoscopy History of appendectomy Family History Family History Mother Hypertension Alzheimer disease Heart disease Rheumatoid arthritis Father COPD (chronic obstructive pulmonary disease) Emphysema, unspecified Heart disease Sibling Arthritis Lupus Heart disease Rheumatoid arthritis Social History Social History Smoking status: Never smoker Alcohol intake: current Alcohol use details: one drink monthly Substance use: never Substance use type: does not use Lack of Transportation: No Lack of Food: Never True Current Housing: I Have Housing Concerned About Future Housing: No Difficulty Paying Gas/Electric Bills: No Difficulty Paying for Meds: No Currently Unemployed: No Education: Associate Degree Difficulty w/ Childcare or Family Care: No Living arrangements: with family Gender identity (if verbalized by the patient): Female Spiritual care concerns: No Comments At time of signature, I have reviewed and agree with nursing past medical, surgical, social and family history unless otherwise noted. Please see nursing chart for further information. There is no relevant family history pertinent to the presenting complaint Exam Narrative: GENERAL: Well-appea
== END 2023-02-28 09:54 | disposition home or self-care (01) ==
PROVIDERS: Emergency Provider Nurse Practitioner; PCP Physician Assistant
DX: J06.9 Acute upper respiratory infection, unspecified (principal); J45.901 Unspecified asthma with (acute) exacerbation; N80.9 Endometriosis, unspecified; G62.9 Polyneuropathy, unspecified; M06.9 Rheumatoid arthritis, unspecified; D80.2 Selective deficiency of immunoglobulin A [IgA]
CPT/HCPCS: 87081; 87880; 99213; G0463

== ENCOUNTER 2023-05-31 01:12 | Day surgery (SDC) | payer OTHER, SELFPAY ==
--- NOTE | 2023-05-26 15:30 | SUR.PREOP ---
Report to the Outpatient Waiting Room, entrance under the green pavilion located off [facility], at time _0830 on date _05/31/23 . Planned Procedure Time: __1030 . Time changes happen often and if your time is changed the preop area will call you the afternoon before. - You and your visitor will be asked to self-screen and do not enter if you have any COVID symptoms. - A mask is optional within the hospital at this time. Patients may have clear liquids (water, carbonated beverages, clear teas, apple juice) until 3 hours prior to surgery with a maximum of 20 ounces. - No food from midnight until time of surgery - Infants may have breast milk until 4 hours before surgery, infant formula 6 hours prior to surgery. - Children will be allowed to drink immediately following surgery. If applicable, please bring a bottle or sippy cup to assist with drinking. Juice, water, soda, and popsicles are readily available. For infants on formula, please bring formula the day of surgery. Pacifiers are allowed. Take the following medications with a SIP of water the morning of surgery: _CETIREZINE DO NOT STOP ANY OF YOUR OTHER PRESCRIPTION MEDICATIONS PRIOR TO SURGERY ?EXCEPT THE FOLLOWING Medications to discontinue per physician __MULTIVITAMIN Date to take last dose__05/28/23 Please no make-up, nail maltese, hairspray, perfume, deodorant, or body powder the day of surgery. No jewelry (including any body piercings) or valuables the day of surgery, leave them at home. Please take a shower or bath the night before, or the morning of, surgery with an antibacterial soap. Wear comfortable, loose fitting clothing. Children are encouraged to wear pajamas. - Jewelry must be removed prior to entering the operating room. Rings and piercings that are not removed may be cut off. - The hospital will not accept responsibility for valuables. - Please leave all valuables, including medications, at home the day of surgery. If you are going home after surgery, a licensed fast food delivery driver must drive you home. - NO public transportation without another adult if you receive anesthesia. - We recommend that an adult stay with you for 24 hours following discharge. - We also recommend that you do not drive, make important decision, drink alcoholic beverages, or take any drugs that were not prescribed by your health care provider for at least 24 hours after your discharge time. For Pediatric surgeries, we recommend two adults accompany the child home. Follow any additional instructions given to you from your surgeon. If you or anyone in your household have experienced Covid symptoms in the past week, please notify your surgeon or the nurse liaison at the phone number below for possible testing. Telephone instructions given to SYDNI WHEELER and asked if any additional questions and then verbalized understanding. Patient advised to call surgeon office or pre surgery nurse liaison [phone] if any additional questions.
--- NOTE | 2023-05-31 08:04 | WPDHPUPDATE1 ---
History and Physical Update Update Date/Time: 05/31/23 08:04 History and Physical has been reviewed, including an updated exam of the patient. There are NO changes in the patient's condition. Risks, benefits, and alternatives have been discussed and questions answered. Patient agrees to proceed with procedure.
--- NOTE | 2023-05-31 08:04 | PM.HPGS ---
History of Present Illness History of Present Illness Consent: Risks, benefits, and alternatives have been discussed and questions answered. Patient agrees to proceed with procedure. Chief complaint: postmenopausal bleeding Narrative: Graciela Xiong is a 62 year old female with postmenopausal bleeding in September of 2021. Patient presented as a new patient in March of 2022. Exam at that time was normal and pelvic ultrasound was performed which revealed a thickened endometrium. Was recommended to proceed with a D&C hysteroscopy. Patient initially scheduled but called back to cancel due to a in the family attempts a rescheduling were not successful. Patient returned April of 2023 reporting a new episode of vaginal bleeding initially spotting followed by 7 days of light flow. It was again recommended to proceed with D&C hysteroscopy and thus the patient presents today for the procedure. The risks of infection, bleeding, perforation, and possible pathology are reviewed. Patient voices understanding and agrees to proceed. Review of Systems Review of Systems: not repeated day of surgery; patient states no changes in status PMFSH Past Medical History Medical History (Updated 05/31/23 @ 08:08 by Jenny Graves MD) Asthma Blood disorder IgA deficiency Cardiac disorder Questionable hole in heart, pericarditis 30 years ago Carpal tunnel syndrome Bilateral wrist Chronic back pain Sciatica, 2 herniated disks Diverticulitis Eczema Elevated blood pressure reading in office without diagnosis of hypertension Endometriosis Fractures Ankle (normal spontaneous vaginal delivery) x1 Peripheral neuropathy Proteinuria Rheumatoid arthritis Surgical History Surgical History H/O laparoscopy History of appendectomy Family History Family History Mother Hypertension Alzheimer disease Heart disease Rheumatoid arthritis Father COPD (chronic obstructive pulmonary disease) Emphysema, unspecified Heart disease Sibling Arthritis Lupus Heart disease Rheumatoid arthritis Social History Social History Smoking status: Never smoker Alcohol intake: current Alcohol use details: socially once a month Substance use: never Substance use type: does not use Lack of Transportation: No Lack of Food: Never True Current Housing: I Have Housing Concerned About Future Housing: No Difficulty Paying Gas/Electric Bills: No Difficulty Paying for Meds: No Currently Unemployed: No Education: Associate Degree Difficulty w/ Childcare or Family Care: No Living arrangements: with family Gender identity (if verbalized by the patient): Female Spiritual care concerns: No Meds Home Medications and Allergies Home Medications Medication Instructions Recorded Confirmed Type Daily Multivitamin 1 tab-cap PO DAILY 08/02/20 05/26/23 History albuterol sulfate 90 mcg/actuation 1 inh inhalation Q4H PRN shortness 08/14/22 05/26/23 Rx aerosol inhaler (ProAir HFA) of breath or wheezing #8.5 grams fluticasone propionate 50 2 spray intranasal BID #16 grams 10/02/22 05/26/23 Rx mcg/actuation nasal spray,suspension cetirizine 10 mg tablet 10 mg PO DAILY #90 tabs 05/11/23 05/26/23 Rx rosuvastatin 10 mg tablet 10 mg PO DAILY #90 tabs 05/11/23 05/26/23 Rx Allergies Allergy/AdvReac Type Severity Reaction Status Date / Time ephedrine Allergy Severe Anaphylaxis Verified 05/26/23 15:03 penicillin G Allergy Severe Anaphylaxis Verified 05/26/23 15:03 phenobarbital Allergy Severe Anaphylaxis Verified 05/26/23 15:03 Sulfa (Sulfonamide Allergy Severe Anaphylaxis Verified 05/26/23 15:03 Antibiotics) theophylline Allergy Severe Anaphylaxis Verified 05/26/23 15:03 lisinopril AdvReac Intermediate Headache Verified 05/26/23 15:03
[2023-05-31] MEDS: LACTATED RINGERS 1,000 ML 30 ML IV CONT (09:00)
[2023-05-31 09:51] VITALS: BP 117/68; PULSE 82; RESP 16; TEMP 36.4; O2SAT 100
[2023-05-31] MEDS: ACETAMINOPHEN 500 MG TABLET 1000 MG PO (09:54)
--- NOTE | 2023-05-31 10:07 | WPDANESEPPF ---
Anes - Initial Pre Proc Eval Procedure: Operation Date: 05/31/23 10:30 Proposed Procedures p Hysteroscopy Dilation and Curettage - Jenny Graves MD Date/Time: 05/31/23 10:07 Surgeon: Jenny Graves MD Pre Op Diagnosis: postmenopausal bleeding Patient Data Age: 62 Gender: F Height: Weight: 80 kg Last Vital Signs Temp 36.4 C 05/31/23 09:51 Pulse 82 05/31/23 09:51 Resp 16 05/31/23 09:51 BP 117/68 05/31/23 09:51 Pulse Ox 100 05/31/23 09:51 Allergies Allergy/AdvReac Type Severity Reaction Status Date / Time ephedrine Allergy Severe Anaphylaxis Verified 05/31/23 09:49 penicillin G Allergy Severe Anaphylaxis Verified 05/31/23 09:49 phenobarbital Allergy Severe Anaphylaxis Verified 05/31/23 09:49 Sulfa (Sulfonamide Allergy Severe Anaphylaxis Verified 05/31/23 09:49 Antibiotics) theophylline Allergy Severe Anaphylaxis Verified 05/31/23 09:49 lisinopril AdvReac Intermediate Headache Verified 05/31/23 09:49 Home Medications Medication Instructions Recorded Confirmed Type Daily Multivitamin 1 tab-cap PO DAILY 08/02/20 05/26/23 History albuterol sulfate 90 mcg/actuation 1 inh inhalation Q4H PRN shortness 08/14/22 05/26/23 Rx aerosol inhaler (ProAir HFA) of breath or wheezing #8.5 grams fluticasone propionate 50 2 spray intranasal BID #16 grams 10/02/22 05/26/23 Rx mcg/actuation nasal spray,suspension cetirizine 10 mg tablet 10 mg PO DAILY #90 tabs 05/11/23 05/26/23 Rx rosuvastatin 10 mg tablet 10 mg PO DAILY #90 tabs 05/11/23 05/26/23 Rx Patient hx anesthesia problems: none Family hx anesthesia problems: none Results Review: All pre-operative results and documents have been reviewed as part of the pre-operative evaluation. [facility] Past Medical History Medical History Asthma Blood disorder IgA deficiency Cardiac disorder Questionable hole in heart, pericarditis 30 years ago Carpal tunnel syndrome Bilateral wrist Chronic back pain Sciatica, 2 herniated disks Diverticulitis Eczema Elevated blood pressure reading in office without diagnosis of hypertension Endometriosis Fractures Ankle (normal spontaneous vaginal delivery) x1 Peripheral neuropathy Proteinuria Rheumatoid arthritis Surgical History Surgical History H/O laparoscopy History of appendectomy Family History Family History Mother Hypertension Alzheimer disease Heart disease Rheumatoid arthritis Father COPD (chronic obstructive pulmonary disease) Emphysema, unspecified Heart disease Sibling Arthritis Lupus Heart disease Rheumatoid arthritis Social History Social History Smoking status: Never smoker Alcohol intake: current Alcohol use details: socially once a month Substance use: never Substance use type: does not use Lack of Transportation: No Lack of Food: Never True Current Housing: I Have Housing Concerned About Future Housing: No Difficulty Paying Gas/Electric Bills: No Difficulty Paying for Meds: No Currently Unemployed: No Education: Associate Degree Difficulty w/ Childcare or Family Care: No Living arrangements: with family Gender identity (if verbalized by the patient): Female Spiritual care concerns: No Anes - Eval Final PreProcedure Day of Procedure 05/31/23 10:07 Patient weight: normal Heart: regular rate and rhythm Lungs: clear to auscultation Airway: Mallampati scale class II Neurological: alert and oriented Last oral intake: >/= 8 hours ASA classification: III Emergent: no Anesthetic plan: proceed Anesthesia type and monitoring: general GIVS and standard monitoring Results Review: All pre-operative results and documents have been reviewed as part of the pre-operative
--- NOTE | 2023-05-31 11:27 | P.OP_ITS ---
Procedure Note - Detailed Date of Procedure 05/31/23 Pre-op Diagnosis postmenopausal bleeding Post-op Diagnosis Same Procedure Performed D&C hysteroscopy Surgeon Jenny Graves MD Anesthesia MAC Findings uterus sounds to 8cm and appears grossly atrophic Description of Procedure The patient is taken to the operating room and placed under anesthesia in the dorsal lithotomy position. She was prepped and draped in the usual sterile fashion. [place] speculum is placed in the vagina and the cervix grasped on the anterior lip with a tenaculum. The uterus is attempted to be sounded and there is internal cervical stenosis. The small dilators are used and able to enter the cavity. Cervix was serially dilated to a 5 Hegar. The uterus is then sounded to 8cm. The diagnostic hysteroscope was placed and with no abnormalities noted it was removed. The OO sharp curette is used to curette the endometrium until a good uterine cry was noted in all areas. Minimal material was obtained consistent with the atrophic appearance. All instruments are removed. Sponge, needle, and instrument counts are correct per the OR staff. The patient is awakened from anesthesia and taken to recovery in stable condition. Estimated Blood Loss 5 Drains No Packing No Pathology Yes ( Endometrial curettings) Complications No immediate complications Condition Stable Disposition PACU
[2023-05-31 11:30] VITALS: BP 89/48; PULSE 64; RESP 13; O2SAT 98
[2023-05-31 12:00] VITALS: BP 105/63; PULSE 56; RESP 16
[2023-05-31 12:30] VITALS: BP 106/56; PULSE 53; RESP 16
== END 2023-05-31 13:05 | disposition home or self-care (01) ==
PROVIDERS: PCP Physician Assistant; Visit Provider Obstetrics & Gynecology Gynecology
PROC: 0U5B8ZZ Destruction of Endometrium, Via Natural or Artificial Opening Endoscopic (ICD-10-PCS; CPT 58563; principal; 2023-05-31 10:30)
DX: N95.0 Postmenopausal bleeding (principal); N85.8 Other specified noninflammatory disorders of uterus; J45.909 Unspecified asthma, uncomplicated; D80.2 Selective deficiency of immunoglobulin A [IgA]; Z82.49 Family history of ischemic heart disease and other diseases of the circulatory system; Z79.51 Long term (current) use of inhaled steroids
CPT/HCPCS: 58558; 88305; A9270; J1100; J2250; J2405; J2704; J3010; J7120

== ENCOUNTER 2023-06-23 12:18 | Emergency (ER) | payer OTHER, SELFPAY ==
--- NOTE | ~2023-06-23 | XR_ITS ---
EXAMINATION: XR ankle LT min 3V DATE: 06/23/2023 13:03 INDICATION: Left ankle pain. Fall. TECHNIQUE: 4 views of left ankle were obtained. COMPARISON: None. FINDINGS: Bone alignment is normal. No fracture. There is mild osteoarthritis of ankle joint and talo navicular joint. There is an enthesophyte at plantar aspect of calcaneal tuberosity. Ankle soft tissu e swelling is noted. IMPRESSION: 1. Mild polyarticular osteoarthritis. Reviewed, dictated and finalized at location A.
--- NOTE | ~2023-06-23 | XR_ITS ---
EXAMINATION: XR knee LT 3V DATE: 06/23/2023 13:03 INDICATION: Knee pain post fall with twisting injury TECHNIQUE: Anteroposterior, oblique and crosstable lateral views of the left knee were obtained COMPARISON: None. FINDINGS: Alignment is normal. No fracture. There are tiny marginal osteophytes along the patella and lateral tibial plateau consistent with at least minimal osteoarthritis with relatively preserved joint spaces on nonweightbearing imaging. No joint effusion/layering lipohemarthrosis. Soft tissues are unremarka ble. IMPRESSION: 1. No left knee joint effusion or acute osseous abnormality. Reviewed, dictated and finalized at location A.
[2023-06-23 12:45] VITALS: BP 150/79; PULSE 80; RESP 18; TEMP 36.8; O2SAT 100
--- NOTE | 2023-06-23 13:37 | ED.LOWEXIN ---
HPI - Extremity Injury (Lower) General Chief Complaint: Extremity Injury, Lower Stated Complaint: fall/ankle injury Time Seen by Provider: 06/23/23 13:09 History of Present Illness HPI Narrative: This is a 62-year-old female, with no significant past medical history, who presents to the emergency department complaining of left ankle pain after a fall. The patient states she stepped on a scale at work, the scale was loose, causing her to lose her balance. She states her leg slipped underneath her and she struck her left knee she. She complains of 6/10 dull and intermittently sharp left lateral ankle pain without radiation. She also complains of 3/10 anterior left knee pain. She denies head injury or loss of consciousness. She has no other complaints at this time. Related Data Home Medications Medication Instructions Recorded Confirmed Daily Multivitamin 1 tab-cap PO DAILY 08/02/20 05/26/23 Allergies Allergy/AdvReac Type Severity Reaction Status Date / Time ephedrine Allergy Severe Anaphylaxis Verified 05/31/23 09:49 penicillin G Allergy Severe Anaphylaxis Verified 05/31/23 09:49 phenobarbital Allergy Severe Anaphylaxis Verified 05/31/23 09:49 Sulfa (Sulfonamide Allergy Severe Anaphylaxis Verified 05/31/23 09:49 Antibiotics) theophylline Allergy Severe Anaphylaxis Verified 05/31/23 09:49 lisinopril AdvReac Intermediate Headache Verified 05/31/23 09:49 Review of Systems Review of Systems: CONSTITUTIONAL: Denies fever, chills, or sweats. CARDIOVASCULAR: Denies chest pain, palpitations, or edema. RESPIRATORY: Denies cough or dyspnea. GASTROINTESTINAL: Denies abdominal pain, nausea, vomiting, or diarrhea. GENITOURINARY: Denies dysuria or hematuria. SKIN: Denies rash or itching. MUSCULOSKELETAL: Left ankle pain, left knee pain denies back pain, or myalgia. NEUROLOGIC: Denies headache, numbness, dizziness, or weakness. PSYCHIATRIC: Denies anxiety or depression. [facility] Past Medical History Medical History Asthma Blood disorder IgA deficiency Cardiac disorder Questionable hole in heart, pericarditis 30 years ago Carpal tunnel syndrome Bilateral wrist Chronic back pain Sciatica, 2 herniated disks Diverticulitis Eczema Elevated blood pressure reading in office without diagnosis of hypertension Endometriosis Fractures Ankle (normal spontaneous vaginal delivery) x1 Peripheral neuropathy Proteinuria Rheumatoid arthritis Surgical History Surgical History H/O laparoscopy History of appendectomy Family History Family History Mother Hypertension Alzheimer disease Heart disease Rheumatoid arthritis Father COPD (chronic obstructive pulmonary disease) Emphysema, unspecified Heart disease Sibling Arthritis Lupus Heart disease Rheumatoid arthritis Social History Social History Smoking status: Never smoker Alcohol intake: current Alcohol use details: socially once a month Substance use: never Substance use type: does not use Lack of Transportation: No Lack of Food: Never True Current Housing: I Have Housing Concerned About Future Housing: No Difficulty Paying Gas/Electric Bills: No Difficulty Paying for Meds: No Currently Unemployed: No Education: Associate Degree Difficulty w/ Childcare or Family Care: No Living arrangements: with family Gender identity (if verbalized by the patient): Female Sexual Orientation (if Verbalized by the Patient): Straight or Heterosexual Spiritual care concerns: No Exam Narrative: GENERAL: Well-developed, well-nourished, and in no acute distress. HEAD: Normocephalic, atraumatic. EYES: PERRLA and EOMI. NECK: Supple. No midline spine tenderness to palpation, no step-off or crepitus CHEST:
[2023-06-23] MEDS: LIDOCAINE 5% PATCH 1 PATCH TRANSDERM (13:39)
[2023-06-23] MEDS: ACETAMINOPHEN 500 MG TABLET 1000 MG PO (13:39)
== END 2023-06-23 13:52 | disposition home or self-care (01) ==
PROVIDERS: Emergency Provider Preventive Medicine Aerospace Medicine; PCP Physician Assistant
DX: S93.492A Sprain of other ligament of left ankle, initial encounter (principal); S80.02XA Contusion of left knee, initial encounter; J45.909 Unspecified asthma, uncomplicated; D80.2 Selective deficiency of immunoglobulin A [IgA]; N80.9 Endometriosis, unspecified; G62.9 Polyneuropathy, unspecified; M06.9 Rheumatoid arthritis, unspecified; W18.39XA Other fall on same level, initial encounter
CPT/HCPCS: 73562; 73610; 99283; A9270

== ENCOUNTER 2024-02-16 15:49 | Emergency (ER) | payer OTHER, SELFPAY ==
--- NOTE | ~2024-02-16 | CT_ITS ---
EXAMINATION: CT abdomen pelvis w con DATE: 02/16/2024 17:07 INDICATION: Left lower quadrant abdominal pain for 3 weeks. Nausea, vomiting TECHNIQUE: Computed tomography (CT) of the abdomen and pelvis was performed with 100 CC Omnipaque 350 intravenous contrast. Automated exposure control and iterative reconstruction technique were employe d. Exam dose: 406.16 mGy-cm total exam DLP. COMPARISON: January 26, 2017 CT abdomen and pelvis FINDINGS: Calcified left lower lobe pulmonary radiology of the lung bases are clear of infiltrate or consolidation. Normal heart size. No pericardial or pleural effusion. Small sliding hiatal hernia. Scattered occasional hepatic cysts measuring up to 11 mm approximately maximal dimension. No gallbladder wall thickening or pericholecystic fluid or fat stranding. No bile duct or pancreatic duct dilatation. No pancreatic mass lesion or calcification. Normal splenic size. No adrenal mass lesion. No suspicious renal space occupying mass lesion or urinary tract calculus or hydronephrosis is detect ed. Retroverted uterus with probable uterine fibroid calcifications. Mild atherosclerotic calcification and normal caliber of the abdominal aorta. No intraperitoneal or r etroperitoneal pelvic mass lesion or adenopathy or ascites. There is pericolic fat stranding at the descending colon in the L4 region and again at the junction o f the distal descending and proximal sigmoid colon consistent with mild diverticulitis. No abscess ca vity is identified. There are multiple diverticula of the sigmoid and descending colon. No bowel obstruction, no pneumoperitoneum. Moderately severe degenerative disc disease at L4-5 and L5-S1. No suspicious osteolytic or osteoblastic lesions. IMPRESSION: 2 sites of mild colonic diverticulitis, at the mid descending colon and again at the agustín ction of the distal descending and proximal sigmoid colon; no abscess Small sliding hiatal hernia and occasional hepatic cysts and retroverted uterus, calcified uterine fi broid Reviewed, dictated and finalized at Location A. Reviewed, dictated and finalized at location A. IMPRESSION: 2 sites of mild colonic diverticulitis, at the mid descending colo n and again at the junction of the distal descending and proximal sigmoid colon ; no abscess Small sliding hiatal hernia and occasional hepatic cysts and retroverted uterus , calcified uterine fibroid
[2024-02-16 15:55] VITALS: BP 129/85; PULSE 87; RESP 16; TEMP 37.2; O2SAT 100
[2024-02-16 16:10] VITALS: BP 128/84; PULSE 82; RESP 16; TEMP 36.6; O2SAT 99
[2024-02-16 16:19] LABS: Basophils Percent Auto 0.6 % (0.2-1.2); Eosinophils Absolute Auto 0.3 K/mm3 (0-0.3); Eosinophils Percent Auto 4.7 % (0-4.4); Hemoglobin 12.6 g/dL (12.0-15.0); Immature Granulocyte Absolute 0.02 K/mm3 (0.00-0.031); Immature Granulocyte Percent A 0.3 % (0-0.5); Lymphocytes Absolute Auto 1.66 K/mm3 (0.9-3.2); Lymphocytes Percent Auto 23.6 % (18.3-44.2); Mean Corpuscular HGB Conc 34.1 g/dl (32-36); Mean Corpuscular Hemoglobin 30.2 pg (26-34); Mean Corpuscular Volume 88.7 fl (80-100); Mean Platelet Volume 9.9 fl (7.4-10.4); Monocytes Absolute Auto 0.4 K/mm3 (0.1-0.6); Monocytes Percent Auto 5.8 % (2.6-8.5); Neutrophils Absolute Auto 4.6 K/mm3 (1.3-6.7); Platelet Count Result 280 k/mm3 (150-375); Red Blood Count 4.17 M/mm3 (4.2-5.4); Red Cell Distribution Width 11.7 % (11.5-14.5)
[2024-02-16 16:31] LABS: Alanine Aminotransferase 16 U/L (6-35); Albumin Level 4.4 g/dL (3.5-5.1); Alkaline Phosphatase 63 U/L (38-126); Anion Gap 7 mmol/L (4-12); Aspartate Amino Transferase 29 U/L (14-36); Bilirubin,Total 0.5 mg/dL (0.2-1.3); Blood Urea Nitrogen 14 mg/dL (7-17); Calcium 9.6 mg/dL (8.4-10.2); Carbon Dioxide 27 mmol/L (22-30); Chloride 105 mmol/L (98-107); Estimated CRCL calculation 62 ml/min; Estimated Glomerular Filt Rate > 60; Glucose 93 mg/dL (65-110); Lipase 96 U/L (23-300); Potassium 3.8 mmol/L (3.4-5.0); Sodium 139 mmol/L (137-145)
[2024-02-16 17:14] LABS: Appearance Urine Clear (Clear); Bacteria Urine None Seen /hpf; Bilirubin Urine Negative (Negative); Blood Urine 1+ (Negative); Color Urine Yellow (Yellow); Glucose Urine UA Negative (Negative); Ketones Urine Negative (Negative); Leukocyte Esterase Ur 1+ LEU/UL (Negative); Need Manual Microscopic Reviewed; Nitrate Urine Negative (Negative); Non Pathogenic Casts 0-2; Protein Urine Negative (Negative); RBC Urine 0-2 /hpf (0-2); Specific Grav Ur 1.009 (1.001-1.035); Squamous Epithelial Cell Urine None Seen /hpf (Few); WBC Urine 0-5 /hpf (0-3); pH Urine 5.5 (5.0-9.0)
[2024-02-16 17:16] LABS: Add Urine Microscopic? YES
--- NOTE | 2024-02-16 17:33 | ED.ABDPAIN ---
HPI - Abdominal Pain General Chief Complaint: Abdominal Pain Stated Complaint: abd pain Time Seen by Provider: 02/16/24 15:50 Source: patient Mode of arrival: ambulatory Limitations: no limitations History of Present Illness HPI narrative: 63-year-old with a history of diverticulosis here with complaints of left-sided abdominal pain which has been ongoing for past few weeks. Patient stated that she thought she could titrate up hours the pain is continuous and steady in nature. She denies any nausea or vomiting however she states that she feels constipated. Denies any blood in the urine MD elicited complaint: abdominal pain Pertinent past history: constipation and diverticulitis Onset (ago): week(s) (2) Pain Consistency: constant Location: LLQ Severity: moderate Quality: cramping Radiation: none Migration to: no migration Exacerbating factors: nothing Relieving factors: nothing Associated symptoms: denies other symptoms Related Data Home Medications Medication Instructions Recorded Confirmed multivitamin (One Daily 1 tablet PO DAILY 06/30/23 02/11/24 Multivitamin tablet) Allergies Allergy/AdvReac Type Severity Reaction Status Date / Time ephedrine Allergy Severe Anaphylaxis Verified 02/11/24 09:44 penicillin G Allergy Severe Anaphylaxis Verified 02/11/24 09:44 phenobarbital Allergy Severe Anaphylaxis Verified 02/11/24 09:44 Sulfa (Sulfonamide Allergy Severe Anaphylaxis Verified 02/11/24 09:44 Antibiotics) theophylline Allergy Severe Anaphylaxis Verified 02/11/24 09:44 lisinopril AdvReac Intermediate Headache Verified 02/11/24 09:44 Review of Systems Review of Systems: All systems reviewed & are unremarkable except as noted in HPI and below Constitutional: Constitutional: Reports no additional constitutional complaints Eyes: Eyes: Reports no additional eye complaints ENT: Reports system reviewed and no additional complaints, except as documented Cardiovascular: Cardiovascular: Reports no additional cardiovascular complaints Respiratory: Respiratory: Reports no additional respiratory complaints Gastrointestinal: Gastrointestinal: Reports as per HPI Musculoskeletal: Musculoskeletal: Reports no additional musculoskeletal complaints Neurologic: Reports system reviewed and no additional complaints, except as documented Endocrine: Endocrine: Reports no additional endocrine complaints [facility] Past Medical History Medical History Asthma Blood disorder IgA deficiency BMI 28.0-28.9,adult Cardiac disorder Questionable hole in heart, pericarditis 30 years ago Carpal tunnel syndrome Bilateral wrist Chronic back pain Sciatica, 2 herniated disks Diverticulitis Eczema Elevated blood pressure reading in office without diagnosis of hypertension Endometriosis Fractures Ankle Hyperlipidemia (normal spontaneous vaginal delivery) x1 Peripheral neuropathy Proteinuria Rheumatoid arthritis Surgical History Surgical History H/O laparoscopy History of appendectomy History of hysteroscopy Family History Family History Mother Hypertension Alzheimer disease Heart disease Rheumatoid arthritis Father COPD (chronic obstructive pulmonary disease) Emphysema, unspecified Heart disease Sibling Arthritis Lupus Heart disease Rheumatoid arthritis Social History Social History Smoking status: Never smoker Second hand tobacco smoke exposure: Yes Alcohol intake: current Alcohol use details: socially once a month Substance use: never Substance use type: does not use Do You Feel Safe in your Home?: Yes Lack of Transportation: No Lack of Food: Never True Current Housing: I Have Housing Concerned About Future Housing: No Difficulty Paying Ga
== END 2024-02-16 18:02 | disposition home or self-care (01) ==
PROVIDERS: Emergency Provider Family Medicine; PCP Emergency Medicine
DX: K57.32 Diverticulitis of large intestine without perforation or abscess without bleeding (principal); J45.909 Unspecified asthma, uncomplicated; E78.5 Hyperlipidemia, unspecified; N80.9 Endometriosis, unspecified; G62.9 Polyneuropathy, unspecified; M06.9 Rheumatoid arthritis, unspecified; K44.9 Diaphragmatic hernia without obstruction or gangrene; K76.89 Other specified diseases of liver; N85.4 Malposition of uterus; D25.9 Leiomyoma of uterus, unspecified
CPT/HCPCS: 36415; 74177; 80053; 81001; 83690; 85025; 99284; Q9967

== ENCOUNTER 2024-04-18 00:48 | Day surgery (SDC) | payer OTHER, SELFPAY ==
[2024-04-07 11:12] VITALS: BMI 28.7
[2024-04-18 13:34] VITALS: BP 119/72; PULSE 75; RESP 16; TEMP 36.6; O2SAT 100
[2024-04-18] MEDS: LACTATED RINGERS 1,000 ML 150 ML IV CONT (13:51)
--- NOTE | 2024-04-18 13:54 | WPDANESEPPF ---
Anes - Initial Pre Proc Eval Procedure: Operation Date: 04/18/24 14:30 Proposed Procedures p Esophagogastroduodenoscopy - Jerald Art MD Date/Time: 04/18/24 13:54 Surgeon: Jerald Art MD Pre Op Diagnosis: Abdominal Distension,Epigastric pain Patient Data Age: 63 Gender: F Height: 1.68 m Weight: 83.9 kg Last Vital Signs Temp 97.8 F 04/18/24 13:34 Pulse 75 04/18/24 13:34 Resp 16 04/18/24 13:34 BP 119/72 04/18/24 13:34 Pulse Ox 100 04/18/24 13:34 O2 Del Method Room Air 04/18/24 13:34 Allergies Allergy/AdvReac Type Severity Reaction Status Date / Time ephedrine Allergy Severe Anaphylaxis Verified 04/18/24 13:33 penicillin G Allergy Severe Anaphylaxis Verified 04/18/24 13:33 phenobarbital Allergy Severe Anaphylaxis Verified 04/18/24 13:33 Sulfa (Sulfonamide Allergy Severe Anaphylaxis Verified 04/18/24 13:33 Antibiotics) theophylline Allergy Severe Anaphylaxis Verified 04/18/24 13:33 lisinopril AdvReac Intermediate Headache Verified 04/18/24 13:33 rosuvastatin AdvReac Intermediate Abdominal Verified 04/18/24 13:33 Pain Home Medications Medication Instructions Recorded Confirmed Type albuterol sulfate 90 mcg/actuation 1 inh inhalation Q4H PRN shortness 08/14/22 04/07/24 Rx aerosol inhaler (ProAir HFA) of breath or wheezing #8.5 grams multivitamin (One Daily 1 tablet PO DAILY 06/30/23 04/07/24 History Multivitamin tablet) cetirizine 10 mg tablet 10 mg PO DAILY #90 tabs 02/11/24 04/07/24 Rx fluticasone propionate 50 2 spray intranasal BID #48 grams 02/11/24 04/07/24 Rx mcg/actuation nasal spray,suspension ezetimibe 10 mg tablet (Zetia) 10 mg PO DAILY #90 tabs 03/09/24 04/07/24 Rx Patient hx anesthesia problems: none Family hx anesthesia problems: none Results Review: All pre-operative results and documents have been reviewed as part of the pre-operative evaluation. [facility] Past Medical History Medical History (Updated 03/31/24 @ 12:32 by LINA Goddard) Asthma Bloating Blood disorder IgA deficiency BMI 28.0-28.9,adult Cardiac disorder Questionable hole in heart, pericarditis 30 years ago Carpal tunnel syndrome Bilateral wrist Chronic back pain Sciatica, 2 herniated disks Constipation Diverticulitis Eczema Elevated blood pressure reading in office without diagnosis of hypertension Endometriosis Fractures Ankle Hyperlipidemia (normal spontaneous vaginal delivery) x1 Peripheral neuropathy Proteinuria Rheumatoid arthritis Surgical History Surgical History H/O laparoscopy History of appendectomy History of hysteroscopy Family History Family History Mother Hypertension Alzheimer disease Heart disease Rheumatoid arthritis Father COPD (chronic obstructive pulmonary disease) Emphysema, unspecified Heart disease Sibling Arthritis Lupus Heart disease Rheumatoid arthritis Social History Social History Smoking status: Never smoker Second hand tobacco smoke exposure: Yes Alcohol intake: current Alcohol use details: Socially Substance use: never Substance use type: does not use Do You Feel Safe in your Home?: Yes Lack of Transportation: No Lack of Food: Never True Current Housing: I Have Housing Concerned About Future Housing: No Difficulty Paying Gas/Electric Bills: No Difficulty Paying for Meds: No Currently Unemployed: No Education: Associate Degree Difficulty w/ Childcare or Family Care: No Living arrangements: other Additional living arrangements comments: with sp Occupation/Education: occupation 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
--- NOTE | 2024-04-18 14:28 | WPDHPUPDATE1 ---
History and Physical Update Update Date/Time: 04/18/24 14:28 History and Physical has been reviewed, including an updated exam of the patient. There are NO changes in the patient's condition. Risks, benefits, and alternatives have been discussed and questions answered. Patient agrees to proceed with procedure.
[2024-04-18 14:49] VITALS: BP 95/53; PULSE 79; RESP 19; O2SAT 100
[2024-04-18 14:59] VITALS: BP 99/57; PULSE 66; RESP 14; O2SAT 100
[2024-04-18 15:17] VITALS: BP 98/60; PULSE 68; RESP 16; O2SAT 100
== END 2024-04-18 15:25 | disposition home or self-care (01) ==
PROVIDERS: PCP Emergency Medicine; Referring Provider Nurse Practitioner Family; Visit Provider Internal Medicine Gastroenterology
PROC: 0DJ08ZZ Inspection of Upper Intestinal Tract, Via Natural or Artificial Opening Endoscopic (ICD-10-PCS; CPT 43235; principal; 2024-04-18 14:30)
DX: K31.7 Polyp of stomach and duodenum (principal); R10.13 Epigastric pain; R14.0 Abdominal distension (gaseous); K59.00 Constipation, unspecified; D80.2 Selective deficiency of immunoglobulin A [IgA]; E78.5 Hyperlipidemia, unspecified; M06.9 Rheumatoid arthritis, unspecified
CPT/HCPCS: 43239; 88305; J2704; J7120

== ENCOUNTER 2025-03-18 03:21 | Emergency (ER) | payer OTHER, SELFPAY ==
--- NOTE | ~2025-03-18 | XR_ITS ---
EXAMINATION: XR chest 1V portable DATE: 03/18/2025 03:58 INDICATION: Chest pain and shortness of breath TECHNIQUE: frontal view of the chest was obtained. COMPARISON: Chest radiograph dated 07/11/2021 FINDINGS: Unchanged calcified nodules in the left lower lung zone consistent with old granulomatous disease. No other airspace opacities, pulmonary edema, pleural effusion or pneumothorax. The cardiomediastinal s ilhouette is normal. Visualized bones and soft tissues are unremarkable. IMPRESSION: 1. No acute cardiopulmonary disease. Reviewed, dictated and finalized at location A.
--- NOTE | ~2025-03-18 | CT_ITS ---
EXAMINATION: CT abdomen pelvis w con DATE: 03/18/2025 04:47 INDICATION: Epigastric pain. Elevated liver function tests TECHNIQUE: Computed tomography (CT) of the abdomen and pelvis was performed with 100 mL Omnipaque-350 intravenous contrast. Automated exposure control and iterative reconstruction technique were employe d. The dose-length product was 306.46 mGy-cm. COMPARISON: 02/16/2024 FINDINGS: Calcified left lower lobe nodule consistent with old granulomatous disease. Heart size is normal. No pericardial or pleural effusion. There are a few low-attenuation hepatic cysts. There is diffuse mild periportal edema. Gallbladder and common bile duct are normal. The latter measuring 4.5 mm maximal d iameter. Spleen, pancreas, bilateral adrenal glands and kidneys are normal. Extensive diverticulosis without adjacent comparison to suggest diverticulitis. There is edematous wall thickening along the p roximal to mid colon suggestive of colitis. No bowel obstruction. The appendix is not visualized. No pericecal inflammatory change to suggest acute appendicitis. Partially calcified degenerated uterine fibroid. There is increased prominence of the parametrial veins of the left gonadal vein which can be seen with pelvic vasculature congestion syndrome. Bladder is normal. No free intraperitoneal gas or fluid. No pathologically enlarged abdominal or pelvic lymphadenopathy. Mild lumbar levocurvature wit h moderate lower lumbar spondylosis. IMPRESSION: 1. Nonspecific mild periportal edema. This can be seen with hepatitis, cholangitis, pyelonephritis, h eart failure, volume overload or other generalized causes of edema. 2. Edematous wall thickening of the proximal to mid colon which could be related to liver disease kurtis lashell colitis which could be infectious, inflammatory or ischemic etiology. This and the above findings were discussed with Dr. Xiong at 10:40 AM. 3. Extensive diverticulosis. 4. Calcified uterine fibroid. Reviewed, dictated and finalized at location A. IMPRESSION: 1. Nonspecific mild periportal edema. This can be seen with hepatitis, cholangi tis, pyelonephritis, heart failure, volume overload or other generalized causes of edema. 2. Edematous wall thickening of the proximal to mid colon which could be relate d to liver disease versus colitis which could be infectious, inflammatory or is chemic etiology. This and the above findings were discussed with Dr. Xiong at 10 :40 AM. 3. Extensive diverticulosis. 4. Calcified uterine fibroid.
--- NOTE | 2025-03-18 03:22 | ECG_ITS ---
Test Date: 2025-03-18 03:32:21 Measurements Intervals [place] Rate: 87 P: 76 NE: 159 QRS: 32 QRSD: 119 T: 69 QT: 371 QTc: 447 Interpretive Statements SINUS RHYTHM INTRAVENTRICULAR CONDUCTION DELAY CONSIDER ANTERIOR INFARCT, AGE INDETERMINATE BASELINE ARTIFACT- I, II, AVR, AVL, AVF, V1-V6 ABNORMAL ECG No previous ECG available for comparison Electronically Signed On 03-18-2025 06:57:23 CDT by Lux Vu D.O.
--- OUTSIDE RECORDS SUMMARY | 2025-03-18 03:24 | XMS_ITS | Encounter Summary ---
Author Organization [facility] Facility Care Team Providers Care Greenhouse Florist Name Role Phone Daryl Garcia MD Primary Care Provider [phone] Encounter Details Date Type Department Care Team (Latest Contact Info) Description 06/22/2017 Orders Only [facility] CLINCONV ProviderEdward MD [address] [place] [id number] Social History Tobacco Use Types Packs/Day Years Used Date Smoking Tobacco: Never Alcohol Use Standard Drinks/Week Comments Yes 0 (1 standard drink = 0.6 oz pur e alcohol) Comments Unknown Sex and Gender Information Value Date Recorded Sex Assigned at Not on file Legal Sex 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 Historical Provider Final Res ult documented in this encounter Visit Diagnoses Not on filedocumented in this encounter Care Teams Greenhouse Florist Relationship Specialty Start Date End Date Daryl Garcia MD [address] [place], [place] [id number] PCP - General 04/01/15 documented as of this encounter
--- OUTSIDE RECORDS SUMMARY | 2025-03-18 03:24 | XMS_ITS | Clinical Summary ---
Author Organization [facility] Address [address] [place] [address] Care Team Providers Care Professional Services Specialist Name Role Phone Seb Burkett DO Primary Care Provider [phone] Source Comments [facility],non-owned Affiliates and Associated Physician Practices is amultiple site organization consisting of ambulatory clinics and hospital sitesin [place], [place], [place] and [place]. This disclosure is being madepursuant to the Care Everywhere program and may not contain all information available regarding this patient. Last updated 18.[facility] Allergies Active Allergy Reactions Criticality Noted Date Comments Atorvastatin Itching Low 07/16/2017 Lactase Diarrhea 12/16/2007 Epinephrine Other 01/16/2008 Lac Bovis Diarrhea 10/31/2020 Metronidazole Rash Medium 09/27/2015 Other [Other] Anaphylaxis High 09/30/2010 Tedral; asthma attack Received name: Other Penicillins Anaphylaxis High 09/25/2010 Sulfa Drugs Rash,Other High 09/25/2010 Asthma attack, includes Sulfasalazine., , Sulfasalazine Shortness of Breath High 09/25/2010 Medications * Be aware that medications may not be up to date on this document. Alwaysverify current medications with the patient. albuterol HFA (PROVENTIL;VENT KAYLAH;PROAIR) 108 (90 BASE) MCG/ACT inhaler Inhale 2 puffs by mouth every 6 hours as needed 6 Active fluticasone propionate (FLONASE) 50 MCG/ACT nasal spray [place] 1 spray into the nose 7 Active cetirizine (ZYRTEC) 10 MG tablet Take 1 tablet by mouth once daily 90 tablet 1 8 Active diclofenac sodium (VOLTAREN) 1 % gel Apply 4 g to affected area 4 times daily Apply to knees up to 4 times a day. 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 Trochanteric bursitis of both hips 09/26/2021 Osteoarthritis 09/26/2021 Polyarthralgia 09/26/2021 Bilateral carpal tunnel syndrome 06/02/2018 Other allergic rhinitis 11/20/2016 Overview (01/17/2018): Recalled that she has positive skin test to cats and house dust mites at [facility] in 1996 Mild intermittent asthma, uncomplicated 11/20/19 17 Acute atopic conjunctivitis of both eyes 016 Rheumatoid arthritis 08/01/2015 Overview (01/17/2018): +RF-MTX tried in past but dc'ed due to elevated LFTs Low back pain 09/01/2014 Other specified abnormal findings of blood chemi stry 12/01/2012 Polyneuropathy 11/18/2012 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 (AF LURIA, FLUZONE TRIVALENT; 6MO+) (IIV3) 09/23/2021,08/14/2020 FLU VACCINE TRI IIV3 SPLIT PF IM (FLUVIRIN) 06/19,09/16/2012 INFLUENZA VACCINE 10/06/2016,10/19/2014,11/03/19 14 INFLUENZA VACCINE, QUADR. (A FLURIA, FLUZONE QUADRIVALENT; 6MO+) (IIV4) 08/22/2010 INFLUENZA VACCINE, QUADR. (F LUZONE; FLULAVAL; FLUARIX; AFLURIA QUADRIVALENT; 6MO+), 0.5 ML (IIV4) 09/23/2019,08/13/2015 Influenza Intradermal 10/06/2016,10/19/2014,10/18 TDAP (7yrs+) 09/16/2012 Family History Medical History Relation Name Comments Asthma Father Emphysema Father Hypertension Father Status: COPD,vi ral infection Arthritis - Rheumatoid Mother Asthma Mother CAD (Coronary Artery Disease) Mother Hypertension Mother Peripheral Vascular Disease Mother Status: dementia,CHF,kidney failure Arthritis - Rheumatoid Sister 1 Statu s: SLE,raynauds,nephritis Arthritis - Rheumatoid Sister 2 Statu s: Other Relation Name Status Comments Father Mother Sister 1 Sister 2 Social History Tobacco Use Types Packs/Day Years Used Date Smoking Tobacco: Never Smokeless Tobacco: Never Alcohol Use Standard Drinks/Week Comments Yes 0 (1 standard drink = 0.6 oz pur e alcohol) occaisional PHQ-2 Answer Date Recorded PHQ2 TOTAL SCORE 0 05/30/2021 Comments No Sex and Gender Information Value Date Recorded Sex Assigned at Not on file 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 Gender Identity Not on file Sexual Orientation Not on file Last Filed Vital Signs Vital Sign Reading Time Taken Comments Blood Pressure 124/72 09/26/2021 1:47 PM FOOD AND BEVERAGE CASHIER Pulse 80 09/26/2021 1:47 PM FOOD AND BEVERAGE CASHIER Temperature 36.8 C (98.3 F) 09/26/2021 1:47 PM FOOD AND BEVERAGE CASHIER Respiratory Rate 20 05/30/2021 1:13 PM CDT Oxygen Saturation 98% 05/19/2019 2:31 PM CDT Inhaled Oxygen Concentration - - Weight 94.3 kg (208 lb) 09/26/2021 1:47 PM FOOD AND BEVERAGE CASHIER Height 167.6 cm (5' 6) 09/26/2021 1:47 PM FOOD AND BEVERAGE CASHIER Body Mass Index 33.57 09/26/2021 1:47 PM FOOD AND BEVERAGE CASHIER Plan of Treatment Health Maintenance Due Date Last Done Comments COLOGUARD (AGES 45-75) - COLON CA SCREENING 1961 COLON MONITORING 1961 COLONOSCOPY - COLON CA SCREENING 1961 CT COLONOGRAPHY - COLON CA SCREENING 1961 Colorectal Cancer Screening 1961 FIT - COLON CA SCREENING 1961 FLEX SIG - COLON CA SCREENING 1961 LIPID TESTING 1961 PAP SMEAR 1961 COVID-19 VACCINE (#1) 1966 HIV SCREENING 1976 HEPATITIS C SCREENING 08/02/1979 PNEUMOCOCCAL VACCINE 50+ (1 of 2 - PCV) 1980 ZOSTER VACCINE (1 of 2) 1980 Respiratory Syncytial Virus (RSV) Vaccine Pt: or over 60 yrs (1 - Risk 60-74 years 1-dose series) 2021 SCREENING FOR DIABETES 03/07/2022 9, 07/16/2017, 02/11/2016, Additional history exists DTAP/TDAP/TD VACCINES (2 - Td or Tdap) 09/16/2022 09/16/2012 MAMMOGRAM 06/27/2023 06/27/2021 DEPRESSION SCREENING 10/18/2024 INFLUENZA VACCINE (Season Ended) 2025 09/23/2021, 08/14/2020, 09/23/2019, Additional history exists HEPATITIS B VACCINE Aged Out No longe r eligible based on patient's age to complete this topic HIB VACCINE Aged Out No longer eligi ble based on patient's age to complete this topic HPV VACCINE Aged Out No longer eligi ble based on patient's age to complete this topic MENINGOCOCCAL (Group B) VACCINE SHARED DECISION-MAKING Aged Out No longer eligible based on patient's age to complete this topic MENINGOCOCCAL GROUPS A/C/Y/W VACCINE Aged Out No longer eligible based on patient's age to complete this topic Procedures Procedure Name Priority Date/Time Associated Diagnosis Comments MAMMO BILAT SCREENING W MILDRED Routine 06/27/2021 9:52 AM CDT Visit for screening mammogram COMPREHENSIVE METABOLIC PANEL Routine 03/07/2019 11:17 AM CDT Rheumatoid arthritis, involving unspecified site, unspecified rheumatoid factor presence Bilateral carpal tunnel syndrome Long-term use of Plaquenil from Last 3 Months or Most Recently Relevant to Health Maintenance Results * MAMMO BILAT SCREENING W MILDRED (06/27/2021 9:52 AM CDT) Anatomical Region Laterality Modality Breast Bilateral Mammography 07/17/2021 9:52 AM CDT Impressions 07/17/2021 12:54 PM CDT IMPRESSION: No mammographic evidence of malignancy. Dense breast parenchyma. RECOMMENDATION: Screening mammography in one year, pending no interval breast concerns. Patient will be notified of the results by lay letter. OVERALL ASSESSMENT: BI-RADS CATEGORY 1: NEGATIVE. Report drafted by George Vo DO (physician vice president). Yoni Herring MD assisted in the interpretation of this study. I, Dr. ADENIKE RODRIGUEZ M.D. have personally reviewed and interpreted this examination/study. This report was electronically signed by ADENIKE RODRIGUEZ M.D. on 07/17/2021 12:54 PM . Narrative 07/17/2021 12:54 PM CDT EXAMINATION: DIGITAL MAMMO BILAT SCREENING W MILDRED AND WITH CAD DATE OF EXAM: 06/27/2021 HISTORY: Screening. COMPARISON: Prior breast imaging studies back to 2011, with the most recent dated 01/06/2017. TECHNIQUE: Tomosynthesis (3-D) and reconstructed C - view (synthetic 2-D) images acquired and reviewed in the bilateral craniocaudal and mediolateral oblique projections. A total of 4 images were obtained. Computer-aided detection (CAD) was utilized. BREAST PARENCHYMAL COMPOSITION: Category C: The breasts are heterogeneously dense, which may obscure small masses. FINDINGS: There are no suspicious findings or evidence of malignancy on mammography. Seb Burkett DO MAMMO ORDERABLES Final Result * COMPREHENSIVE METABOLIC PANEL (03/07/2019 11:17 AM CDT) BUN 15 7 - 26 mg/dL 03/07/2019 11:59 AM CDT [facility] Creatinine 1.1 0.6 - 1.2 mg/dL 03/07/2019 11:59 AM CDT [facility] Sodium 143 136 - 145 mmol/L 03/07/2019 11:59 AM CDT [facility] Potassium 4.2 3.5 - 4.5 mmol/L 03/07/2019 11:59 AM [facility] Chloride 107 98 - 107 mmol/L 03/07/2019 11:59 AM [facility] CO2 25 22 - 29 mmol/L 03/07/2019 11:59 AM [facility] Glucose 78 70 - 115 mg/dL 03/07/2019 11:59 AM [facility] Calcium 9.8 8.4 - 10.2 mg/dL 03/07/2019 11:59 AM [facility] Protein Total 7.4 6.0 - 8.3 g/dL 03/07/2019 11:59 AM [facility] Albumin 4.3 3.4 - 5.0 g/dL 03/07/2019 11:59 AM [facility] Bilirubin Total 0.7 0.2 - 1.2 mg/dL 03/07/2019 11:59 AM [facility] Alkaline Phosphatase 80 40 - 150 Units/L 03/07/2019 11:59 AM [facility] ALT 21 0 - 55 Units/L 03/07/2019 11:59 AM [facility] AST 31 5 - 34 Units/L 03/07/2019 11:59 AM [facility] Anion Gap 15 8 - 18 03/07/2019 11:59 AM [facility] BUN/Creatinine Ratio 14 7 - 23 03/07/2019 11:59 AM [facility] Osmolality Calculated 296 270 - 300 mOsm/kg 03/07/2019 11:59 AM [facility] Albumin/Globulin Ratio 1.4 1.1 - 2.3 03/07/2019 11:59 AM [facility] eGFR >60 >60 mL/min/1.7 3 m2 03/07/2019 11:59 AM [facility] Blood BLOOD SPECIMEN / Unknown Lab Venipuncture / Unknown 03/07/2019 11:17 AM T 03/07/2019 11:27 AM [facility] us Rolan Arboleda MD LAB - CHEMISTRY ORDERABLES F inal Result [facility] [address] [phone] from Last 3 Months or Most Recently Relevant to Health Maintenance Insurance Member Subscriber Plan / Payer (Ef fective for All Dates) Name:Jasbir Xiong Relation to Subscriber:Self Name:JASBIR XIONG Payer ID:[id number] (NAIC) Group ID:Not on file Type:/ Address: [address] Member Subscriber Plan / Payer (Ef fective for All Dates) Name:Jasbir Xiong Relation to Subscriber:Self Name:Jasbir Xiong Payer ID:[id number] (NAIC) Group ID:Not on file Type:/ Address: [address] * Guarantor: JASBIR XIONG Account Type Relation to Patient Date of Phone Billing Address Personal/Family [address] [place] [phone] Member Subscriber Plan / Payer (Ef fective for All Dates) Name:Jasbir Xiong Relation to Subscriber:Self Name:Jabsir Xiong Payer ID:[id number] (NAIC) Group ID:Not on file Type:/ Address: [place] [phone] SELF PAY NO INSURANCE Member Subscriber Plan / Payer (Ef fective for All Dates) Name:Jasbir Xiong Member ID:Not on file Relation to Subscriber:Not on file Name:JASIBR XIONG Subscriber ID:Not on file (Home) Address: [address] [place] [phone] Payer ID:Not on file Group ID:Not on file Type:Self Pay Address: [place], [place] * Guarantor: JASBIR XIONG Account Type Relation to Patient Date of Phone Billing Address Personal/Family [address] [place] [phone] SELF PAY NO INSURANCE Member Subscriber Plan / Payer (Ef fective for All Dates) Name:Jasbir Xiong Member ID:Not on file Relation to Subscriber:Not on file Name:JASBIR XIONG Subscriber ID:Not on file (Home) Address: [address] [place], [place] [phone] Payer ID:Not on file Group ID:Not on file Type:Self Pay Address: [place], [place] * Guarantor: JASBIR XIONG Account Type Relation to Patient Date of Phone Billing Address Personal/Family [address] [place] [phone] SELF PAY NO INSURANCE Member Subscriber Plan / Payer (Ef fective for All Dates) Name:Jasbir Xiong Member ID:Not on file Relation to Subscriber:Not on file Name:JABSIR XIONG Subscriber ID:Not on file (Home) Address: [address] [place] [phone] Payer ID:Not on file Group ID:Not on file Type:Self Pay Address: [place], [place] Care Teams Professional Services Specialist Relationship Specialty Start Date End Date Seb Burkett DO [address] [place] [address] PCP - General 02/19/21
--- OUTSIDE RECORDS SUMMARY | 2025-03-18 03:24 | XMS_ITS | Referral Summary ---
Author Organization [facility] [address] Address [address] [place] [address] Care Team Providers Care Drafter Automotive Design Name Role Phone Daryl Garcia MD Primary Care Provider [phone] Allergies Active Allergy Reactions Criticality Noted Date Comments Atorvastatin Itching Low 07/16/2017 Metronidazole Unknown 12/09/2017 Milk Other Anaphylaxis High 09/30/2010 Tedral; asthma attack Penicillins Unknown 09/25/2010 Sulfa (Sulfonamide Antibiotics) Sulfasalazine Unknown 09/25/2010 Tedral Unknown 12/09/2017 Medications albuterol HFA (PROVENTIL HFA,VENTOLIN HFA) 90 mcg/actuation inhaler 2 puffs every 4-6 hours 6 Active beclomethasone (QVAR) 40 mcg/actuation inhaler Inhale 2 puffs. 5 Active cetirizine (ZyrTEC) 10 mg tablet Take 10 mg by mouth. 8 Active clindamycin (CLEOCIN) 150 mg capsule [address] (CYMBALTA) 60 mg capsule Take 60 mg by mouth. 7 Active fluticasone (FLONASE) 50 mcg/actuation nasal spray Administer 1 spray into affected nostril(s). 7 Active hydroxychloroquine (PLAQUENIL) 200 mg tablet TAKE 2 TABLETS DAILY 8 Active mirtazapine (REMERON) 15 mg tablet 7 Active multivitamin tabletIndications: Vitamin Deficiency Prevention Active olopatadine (PATADAY) 0.2 % ophthalmic solutionIndication s:Allergic Conjunctivitis Administer 1 drop into affected eye(s). 7 Active diclofenac sodium (VOLTAREN) 1 % gel Apply topically. 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 Gender Identity Not on file Sexual Orientation Not on file Last Filed Vital Signs Vital Sign Reading Time Taken Comments Blood Pressure 120/68 12/21/2017 4:22 PM OBSTETRICS GYNECOLOGY PHYSICIAN Pulse 91 12/21/2017 4:22 PM OBSTETRICS GYNECOLOGY PHYSICIAN Temperature - - Respiratory Rate - - Oxygen Saturation 98% 12/21/2017 4:22 PM OBSTETRICS GYNECOLOGY PHYSICIAN Inhaled Oxygen Concentration - - Weight 90.3 kg (199 lb) 12/21/2017 4:22 PM OBSTETRICS GYNECOLOGY PHYSICIAN Height 167.6 cm (5' 6) 12/21/2017 4:22 PM OBSTETRICS GYNECOLOGY PHYSICIAN Body Mass Index 32.12 12/21/2017 4:22 PM OBSTETRICS GYNECOLOGY PHYSICIAN Plan of Treatment Not on file Insurance CLAIMS Care Teams Drafter Automotive Design Relationship Specialty Start Date End Date Daryl Garcia MD [address] [place] [address] PCP - General 04/01/15
--- OUTSIDE RECORDS SUMMARY | 2025-03-18 03:24 | XMS_ITS | Clinical Summary ---
Author Organization [facility] [address] Address [address] [place] [address] [address] Team Prov[address] Care [address] Oiler Name Role Phone Daryl Garcia MD Primary Care Provider [phone] Allergies Active Allergy Reactions Criticality Noted Date [...] Noted Date Diagnosed Date Amaurosis fugax 12/09/2017 Surgical History Surgery Date Site/Laterality Comments APPENDECTOMY Appendectomy Medical History Medical History Date Comments Hx Other Medical laparoscopy; Co mments: [facility] 04/01/2015 - Hx Other Medical seasonal allerg ies; Comments: [facility] 04/01/2015 - Hx Other Medical asthma; Comment s: [facility] 04/01/2015 - Hx Other Medical arthritis; Comm ents: [facility] 04/01/2015 - Hx Other Medical high cholestero l; Comments: [facility] 04/01/2015 - Dizziness Hyperlipidemia Heart murmur Allergic rhinitis Sinusitis Diverticulitis Meningitis Asthma Arthritis Family History Medical History Relation Name Comments Heart attack Brother Myocardial infa rction; Heart attack Father Myocardial infa rction; Heart attack Mother Myocardial infa rction; Relation Name Status Comments Brother Father Mother Social History Tobacco Use Types Packs/Day Years [...] on file Legal Sex Female 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 Gender Identity Not on file Sexual Orientation Not on file Obstetrics History Last Filed Vital Signs Vital Sign Reading Time Taken Comments Blood Pressure 120/68 12/21/2017 4:22 PM FOX RAISER Pulse 91 12/21/2017 4:22 PM FOX RAISER Temperature - - Respiratory Rate - - Oxygen Saturation 98% 12/21/2017 4:22 PM FOX RAISER Inhaled Oxygen Concentration - - Weight 90.3 kg (199 lb) 12/21/2017 4:22 PM FOX RAISER Height 167.6 cm (5' 6) 12/21/2017 4:22 PM FOX RAISER Body Mass Index 32.12 12/21/2017 4:22 PM FOX RAISER Plan of Treatment Not on file Insurance [facility] CLAIMS Care Teams Road Oiler Relationship Specialty Start Date End Date Daryl Garcia MD [address] [place] [address] PCP - General 04/01/15
[2025-03-18 03:30] VITALS: BP 117/64; PULSE 88; RESP 22; O2SAT 100
[2025-03-18 03:33] VITALS: BP 117/64; PULSE 89; PULSE 92; RESP 19; TEMP 37.1; O2SAT 100
[2025-03-18 03:44] LABS: Basophils Percent Auto 0.3 % (0.2-1.2); Eosinophils Absolute Auto 0.1 K/mm3 (0-0.3); Eosinophils Percent Auto 1.6 % (0-4.4); Hematocrit 36.1 % (37.0-47.0); Hemoglobin 12.2 g/dL (12.0-15.0); Immature Granulocyte Absolute 0.02 K/mm3 (0.00-0.031); Immature Granulocyte Percent A 0.3 % (0-0.5); Lymphocytes Absolute Auto 1.54 K/mm3 (0.9-3.2); Lymphocytes Percent Auto 20.2 % (18.3-44.2); Mean Corpuscular HGB Conc 33.8 g/dl (32-36); Mean Corpuscular Hemoglobin 30.3 pg (26-34); Mean Corpuscular Volume 89.8 fl (80-100); Mean Platelet Volume 9.8 fl (7.4-10.4); Monocytes Absolute Auto 0.3 K/mm3 (0.1-0.6); Monocytes Percent Auto 4.3 % (2.6-8.5); Neutrophils Absolute Auto 5.6 K/mm3 (1.3-6.7); Neutrophils Percent Auto 73.3 % (45.5-73.1); Platelet Count Result 191 k/mm3 (150-375); Red Blood Count 4.02 M/mm3 (4.2-5.4); Red Cell Distribution Width 12.2 % (11.5-14.5); White Blood Count 7.6 K/mm3 (4.5-10.0)
[2025-03-18] MEDS: ONDANSETRON INJ 4 MG/2 ML VIAL IV PUSH (03:50)
[2025-03-18 04:00] VITALS: BP 97/60; PULSE 77; RESP 13; O2SAT 100
[2025-03-18 04:01] LABS: Alanine Aminotransferase 52 U/L (6-35); Albumin Level 4.2 g/dL (3.5-5.1); Alkaline Phosphatase 72 U/L (38-126); Anion Gap 8 mmol/L (4-12); Aspartate Amino Transferase 77 U/L (14-36); Bilirubin,Total 0.5 mg/dL (0.2-1.3); Blood Urea Nitrogen 10 mg/dL (7-17); Calcium 9.4 mg/dL (8.4-10.2); Carbon Dioxide 26 mmol/L (22-30); Chloride 105 mmol/L (98-107); Estimated CRCL calculation 54 ml/min; Estimated Glomerular Filt Rate > 60; Glucose 129 mg/dL (65-110); Lipase 167 U/L (23-300); Potassium 3.4 mmol/L (3.4-5.0); Sodium 139 mmol/L (137-145)
[2025-03-18] MEDS: ASPIRIN 81 MG CHEWABLE TABLET 324 MG PO (04:01)
[2025-03-18 04:13] LABS: Troponin I < 0.012 ng/mL (0.000-0.034)
[2025-03-18 04:22] LABS: INR 1.1; Prothrombin Time 14.5 Seconds (11.1-14.7)
[2025-03-18 04:23] LABS: Partial Thromboplastin Time 23.7 Seconds (22.3-36.8)
--- NOTE | 2025-03-18 04:36 | ED_ITS ---
HPI - Chest Pain General Chief Complaint: Chest Pain Stated Complaint: CP, SOB, N/V Time Seen by Provider: 03/18/25 04:11 History of Present Illness HPI narrative: 64-year-old female with a past medical history including hyperlipidemia presenting to the emergency depart with sudden-onset right upper quadrant pain, epigastric pain radiating towards her back. No left-sided chest pain or midsternal chest pain. She states it woke her from sleep around midnight. States the pain was 10 out 10 associated some nausea but denies any vomiting. No difficulty breathing. No gallbladder history before. No trauma or injury. No coughing, sneezing, URI symptoms. No cardiac history. Saw her regular doctor few days ago with an unremarkable reassuring six-month checkup. Related Data Home Medications ?Medication ?Instructions ?Recorded ?Confirmed ?Last Taken ?Type multivitamin (One Daily 1 tablet PO DAILY 06/30/23 03/16/25 Unknown History Multivitamin tablet) coenzyme Q10 100 mg capsule 100 mg PO DAILY 03/16/25 Unknown History (CoQ-10) magnesium 200 mg tablet 200 mg PO DAILY 03/16/25 Unknown History mecobalamin (vitamin B12) 1,000 1,000 mcg PO DAILY 03/16/25 Unknown History mcg chewable tablet vewwmfxb-bwen-qlet 8 mg-folic 400 1 tablet PO DAILY 03/16/25 Unknown History mcg-K 50 mcg-lutein 300 mcg tablet (Centrum Silver Women) multivitamin-folic acid 400 1 tablet PO DAILY 03/16/25 Unknown History mcg-biotin 2,000 mcg tablet (Iqjt-Pmuj-Slums (nxlcmljr-adekq-fnbgua)) Allergies Allergy/AdvReac Type Severity Reaction Status Date / Time ephedrine Allergy Severe Anaphylaxis Verified 03/18/25 03:36 penicillin G Allergy Severe Anaphylaxis Verified 03/18/25 03:36 phenobarbital Allergy Severe Anaphylaxis Verified 03/18/25 03:36 Sulfa (Sulfonamide Allergy Severe Anaphylaxis Verified 03/18/25 03:36 Antibiotics) theophylline Allergy Severe Anaphylaxis Verified 03/18/25 03:36 lisinopril AdvReac Intermediate Headache Verified 03/18/25 03:36 rosuvastatin AdvReac Intermediate Abdominal Verified 03/18/25 03:36 Pain Review of Systems 2 Review of Systems: As reviewed [facility] Past Medical History Medical History Persistent proteinuria Knee pain Moderate left ankle sprain Routine medical exam Overweight (BMI 25.0-29.9) URI (upper respiratory infection) Constipation Bloating BMI 28.0-28.9,adult (normal spontaneous vaginal delivery) x1 Hyperlipidemia Knee effusion, right Proteinuria Elevated blood pressure reading in office without diagnosis of hypertension Eczema Blood disorder IgA deficiency Chronic back pain Sciatica, 2 herniated disks Fractures Ankle Carpal tunnel syndrome Bilateral wrist Rheumatoid arthritis Endometriosis Diverticulitis Asthma Cardiac disorder Questionable hole in heart, pericarditis 30 years ago Peripheral neuropathy Surgical History Surgical History History of hysteroscopy H/O laparoscopy History of appendectomy Family History Family History Mother Hypertension Alzheimer disease Heart disease Rheumatoid arthritis Father COPD (chronic obstructive pulmonary disease) Emphysema, unspecified Heart disease Alcohol abuse Sibling Arthritis Lupus Heart disease Rheumatoid arthritis Social History Social History Smoking status: Never smoker Second hand tobacco smoke exposure: Yes Alcohol intake: current Alcohol use details: Socially Substance use: never Substance use type: does not use Do You Feel Safe in your Home?: Yes Lack of Transportation: No Lack of Food: Never True Current Housing: Decline to Answer Concerned About Future Housing: Decline to Answer Difficulty Paying Gas/Electric Bills: Decline to Answer Difficulty Paying for Meds: Decline to Answer Currently Unemployed: Decline to Answer Education: Decline to Answer Difficulty w/ Childcare or Family Care: Decline to Answer Living arrangements: other Additional living arrangements comments: with sp Occupation/Education: occupation 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 Mucous membranes moist. NECK: Supple. CHEST: [Clear to auscultation. No respiratory distress.] HEART: [Regular rate and rhythm]. No murmur heard. [Normal peripheral pulses.] ABDOMEN: [Soft, nondistended], mildly tender to palpation the right upper quadrant with a positive Sosa sign. No overlying skin changes., [No rigidity or guarding] EXTREMITIES: Normal range of motion. [No edema.] SKIN: Warm, dry, no rash. NEURO: [No focal deficits]. Alert and oriented [x3.] PSYCH: [Normal mood and affect.] Course Vital Signs Vital signs: Vital Signs Pulse Rate 88 03/18/25 03:30 Respiratory Rate 22 H 03/18/25 03:30 Blood Pressure 117/64 03/18/25 03:30 Pulse Oximetry 100 03/18/25 03:30 Temperature 37.1 C 03/18/25 03:33 Pulse Rate 75 03/18/25 06:19 Respiratory Rate 11 L 03/18/25 06:19 Blood Pressure 90/59 L 03/18/25 06:19 Pulse Oximetry 98 03/18/25 06:19 Oxygen Delivery Room Air 03/18/25 03:33 MDM - Chest Pain MDM Narrative Medical decision making narrative: 64-year-old female history of hyperlipidemia presenting with right upper quadrant pain, epigastric pain radiating towards her back. No cardiac history or any procedures aside from a appendectomy many years ago. No trauma or injury. She has reproducible pain with the right upper quadrant and positive Sosa sign. Patient is afebrile here with reassuring vital signs. She was nauseous in triage receiving Zofran. Denies any chest pain, shortness a breath, nausea, vomiting, lower abdominal pain, fever, chills. Given patient's history and physical exam findings considerations presently are for renal colic, gallbladder colic, cholecystitis, less likely cholangitis or hepatitis. Low suspicion intra-abdominal process such as bowel obstruction. Low suspicion ACS but she does have risk factors and age. Workup was ordered including CBC, CMP, lipase, urinalysis, troponin the CT scan of the abdomen pelvis with contrast. She was given Pepcid, morphine and Zofran as well as fluids. CT scan was obtained and shows no acute intra-abdominal process was reassuring. Patient had improvement in pain control after medications. Her laboratory studies are unremarkable. No leukocytosis or anemia. Normal platelet count. PT PTT normal. Normal renal function, mildly elevated LFTs, normal glucose, negative troponins x2, normal electrolytes. Normal lipase. EKG shows normal sinus rhythm. No significant change compared to prior EKG. Patient given unremarkable workup could be safely discharged with follow-up with her PCP regarding her LFTs. Medical Records Data Attestation: I reviewed the patient's medical records. Lab Data Attestation: I reviewed the patient's lab results. 03/18/25 03:37 03/18/25 03:37 Labs: Lab Results 03/18/25 03/18/25 Range/Units 03:37 06:29 WBC 7.6 (4.5-10.0) K/mm3 RBC 4.02 L (4.2-5.4) M/mm3 Hgb 12.2 (12.0-15.0) g/dL Hct 36.1 L (37.0-47.0) % MCV 89.8 (80-100) fl MCH 30.3 (26-34) pg MCHC 33.8 (32-36) g/dl RDW 12.2 (11.5-14.5) % Plt Count 191 (150-375) k/mm3 MPV 9.8 (7.4-10.4) fl Immature Gran % (Auto) 0.3 (0-0.5) % Neut % (Auto) 73.3 H (45.5-73.1) % Lymph % (Auto) 20.2 (18.3-44.2) % [place] % (Auto) 4.3 (2.6-8.5) % Eos % (Auto) 1.6 (0-4.4) % Baso % (Auto) 0.3 (0.2-1.2) % Lymph # (Auto) 1.54 (0.9-3.2) K/mm3 [place] # (Auto) 0.3 (0.1-0.6) K/mm3 Eos # (Auto) 0.1 (0-0.3) K/mm3 Baso # (Auto) 0.0 (0.0-0.1) K/mm3 Abs Immat Gran (auto) 0.02 (0.00-0.031) K/mm3 Absolute Neuts (auto) 5.6 (1.3-6.7) K/mm3 Absolute Nucleated RBC 0.000 (0.0-0.012) K/mm3 Nucleated RBC % 0.0 (0.0-0.2) % PT 14.5 (11.1-14.7) Seconds INR 1.1 APTT 23.7 (22.3-36.8) Seconds Sodium 139 (137-145) mmol/L Potassium 3.4 (3.4-5.0) mmol/L Chloride 105 (98-107) mmol/L Carbon Dioxide 26 (22-30) mmol/L Anion Gap 8 (4-12) mmol/L BUN 10 (7-17) mg/dL Creatinine 0.83 (0.7-1.0) mg/dL Estim Creat Clear Calc 54 ml/min Estimated GFR > 60 (59 - ) Glucose 129 H (65-110) mg/dL Calcium 9.4 (8.4-10.2) mg/dL Total Bilirubin 0.5 (0.2-1.3) mg/dL AST 77 H (14-36) U/L ALT 52 H (6-35) U/L Alkaline Phosphatase 72 (38-126) U/L Troponin I < 0.012 < 0.012 (0.000-0.034) ng/mL Total Protein 7.0 (6.3-8.2) g/dL Albumin 4.2 (3.5-5.1) g/dL Lipase 167 (23-300) U/L Imaging Data Attestation: I personally reviewed and interpreted this imaging study as follows: My impression: No acute intra-abdominal process, negative chest x-ray Discharge Plan Discharge Clinical Impression: Acute epigastric pain, Elevated LFTs Patient Disposition: Home Condition: Stable Instructions: Antibiotic Form, Abdominal Pain (ED) Additional Instructions: Your CT scan shows no acute intra-abdominal findings which is reassuring. Your liver function panel shows some slight elevations but not significantly elevated but does need to be followed up in nature this resolved. Your cardiac workup was unremarkable otherwise. We do not have a great explanation for your symptoms but there are no acute emergencies or any urgent concerns. Return with any worsening symptoms and follow-up with your doctor. Patient Language: Maltese Prescriptions: New dicyclomine 20 mg tablet 20 mg PO TID PRN (Reason: abdominal pain) Qty: 14 0RF ondansetron 4 mg tablet,disintegrating 4 mg PO Q8H PRN (Reason: nausea and vomiting) Qty: 10 0RF No Action multivitamin [One Daily Multivitamin] Tablet 1 tablet PO DAILY albuterol sulfate 90 mcg/actuation HFA aerosol inhaler 1 inh inhalation Q4H PRN (Reason: shortness of breath or wheezing) Qty: 25.5 2RF cetirizine 10 mg tablet 10 mg PO DAILY Qty: 90 2RF fluticasone propionate 50 mcg/actuation spray,suspension 2 spray INTRANASAL BID Qty: 48 2RF magnesium 200 mg tablet 200 mg PO DAILY coenzyme Q10 [CoQ-10] 100 mg capsule 100 mg PO DAILY Centrum Silver Women 8 mg iron-400 mcg-50 mcg tablet 1 tablet PO DAILY Rstk-Iqmg-Uoora (xf-ZD-[id number]) 400-2,000 mcg tablet 1 tablet PO DAILY mecobalamin (vitamin B12) 1,000 mcg tablet,chewable 1,000 mcg PO DAILY ezetimibe [Zetia] 10 mg tablet 10 mg PO DAILY Qty: 90 2RF Follow-up/Referrals: Luis Sheikh MD [Primary Care Provider] - Time of Disposition: 07:11
[2025-03-18] MEDS: MORPHINE SULFATE (*CRX) 4 MG/ML INJ IV PUSH (04:57)
[2025-03-18] MEDS: FAMOTIDINE 20 MG/2 ML VIAL IV PUSH (04:57)
[2025-03-18] MEDS: LACTATED RINGERS 1,000 ML 999 ML IV CONT (04:57)
--- OUTSIDE RECORDS SUMMARY | 2025-03-18 04:58 | XMS_ITS | Referral Summary ---
Author Organization [facility] [address] Address [address] [place] [address] Care Team Providers Care Photography Spotter Name Role Phone Daryl Garcia MD Primary Care Provider [phone] Allergies Active Allergy Reactions Criticality Noted Date [...] on file Legal Sex Female 3:42 AM FILER FINISH Gender Identity Not on file Sexual Orientation Not on file Last Filed Vital Signs Vital Sign Reading Time Taken Comments Blood Pressure 120/68 12/21/2017 4:22 PM FILER FINISH Pulse 91 12/21/2017 4:22 PM FILER FINISH Temperature - - Respiratory Rate - - Oxygen Saturation 98% 12/21/2017 4:22 PM FILER FINISH Inhaled Oxygen Concentration - - Weight 90.3 kg (199 lb) 12/21/2017 4:22 PM FILER FINISH Height 167.6 cm (5' 6) 12/21/2017 4:22 PM FILER FINISH Body Mass Index 32.12 12/21/2017 4:22 PM FILER FINISH Plan of Treatment Not on file Insurance CLAIMS Care Teams Photography Spotter Relationship Specialty Start Date End Date Daryl Garcia MD [address] [place] [address] PCP - General 04/01/15
--- OUTSIDE RECORDS SUMMARY | 2025-03-18 04:58 | XMS_ITS | Continuity of Care Document ---
Author Name [facility] Organization [facility] Care Team Providers Care Venue Coordinator Name Role Phone [facility] Unavailable Unavailable Problems Combined list of problems from Department of Defense and Veterans Affairs facilities. It does not include entries that were removed or entered in error. Problem Status Onset Date Problem Type Date of Resolution Comments Source Acute cystitis without hematuria Active Condition DoD lateral epicondylitis (tennis elbow) right Active Condition DoD otitis media acute Active Condition DoD urinary tract infection Inactive Condition DoD Outpatient Physician Consultation Active Condition DoD salivary calculus of duct Active Condition DoD urticaria Active Condition DoD Test Inactive Condition DoD uterine neoplasm, benign leiomyoma Active Condition DoD rhinitis Active Condition DoD nasal polyps Active Condition DoD asthmatic bronchitis Active Condition DoD drip or drainage down throat from above Inactive Condition DoD rhinitis purulent Inactive Condition DoD sinusitis Active Condition DoD reported family history of heart disease Active Condition DoD visit: cerv Pap smear confirm recent normal after init abn Inactive Condition DoD routine gynecological exam with cervical pap smear Inactive Condition DoD visit for: screening exam for malignant neoplasm cervix Inactive Condition DoD taking female hormones for postmenopausal HRT Inactive Condition DoD obesity Active Condition DoD Patient Education Dietary Active Condition DoD otitis externa Inactive Condition DoD hyperlipidemia Active Condition DoD foot pain (soft tissue) Active Condition DoD presbyopia Active Condition DoD routine ophthalmological exam Active Condition DoD Test Negative Inactive Condition DoD Cervical High Risk Human Papilloma Virus DNA Test Active Condition DoD visit for: issue repeat prescription Inactive Condition DoD candidiasis oral thrush Inactive Condition DoD meningitis Inactive Condition DoD otitis media acute serous right ear Inactive Condition DoD Laboratory Studies Inactive Condition Do D vestibular neuronitis Inactive Condition DoD vitamin D deficiency Inactive Condition DoD sinusitis acute Inactive Condition DoD visit for: refer patient without exam or treatment Inactive Condition DoD CXR Lungs Solitary Pulmonary Nodule (___ cm) Inactive Condition DoD asthma Active Condition DoD Preventive Medicine Established Patient Checkup Adult 40-64 Years Inactive Condition DoD Imaging Studies Nonspecific Abnormal Findings Inactive Condition DoD postmenopausal bleeding Active Condition DoD numbness (hypesthesia) Active Condition DoD gastroenteritis viral Inactive Condition DoD carpal tunnel syndrome Inactive Condition DoD visit for: screening exam pulmonary tuberculosis Active Condition DoD Skin Hypopigmentation Inactive Condition DoD Mammogram Screening Inactive Condition D oD tingling (paresthesia) Active Condition DoD rheumatoid arthritis Active Condition DoD acute bronchitis Inactive Condition DoD visit for: laboratory Active Condition DoD otitis media acute serous both ears Inactive Condition DoD viral syndrome Inactive Condition DoD cervicalgia Inactive Condition DoD parotitis Inactive Condition DoD fatigue Active Condition pt to cont inue f/u appts w/ the international affairs vice president DoD adjustment disorder Active Condition pt has been stressing w/ current condition of chronic joint pain and daily fatigue and problems sleeping will see pt back in 2 weeks for f/u appt made DoD shoulder impingement right Active Condition DoD medial epicondylitis Active Condition DoD Patient Education Active Condition Pt informed no lab work needed before CT scan with contrast tomorrow. DoD Abdomen Tenderness Direct LLQ Inactive Condition most likely diverticulosis based on symptosm will eval w/ CT first; pt to increase by using OTC fiber supplement will eval DoD refractive error - myopia Active Condition DoD conjunctivitis chronic allergic Active Condition DoD allergic rhinitis Active Condition DoD visit for: administrative purpose Inactive Condition DoD sciatica Active Condition [facility] visit for: issue repeat prescription for medication Inactive Condition DoD Medications Combined list of outpatient medications from Department of Defense and Veterans Affairs facilities.Medications provided include 1) outpatient medications from the last 15 months, and 2) patient-reported medications. Medication Details Route Status Patient Instructions Prescription Expires Prescription Number Last Dispense Date Ordering Provider Order Date Order Qty Source CETIRIZINE HCL (cetirizine HCl), 10 MG, TABLET, ORAL, 'S LAB, 500 ea. BOTTLE Active [id number] 2023 90 Pharmac y Data Transac tion Service Facilit y CIPROFLOXAC IN HCL (CIPROFLOXA YAMINI HCL), 500MG, TABLET, ORAL, AUROBINDO PHARM, 100 ea. BOTTLE Active [id number] 4 2023 14 Pharmac y Data Transac tion Service Facilit y CLARITHROMY YAMINI (CLARITHROM YCIN), 500 MG, TABLET, ORAL, AUROBINDO PHARM, 60 ea. BOTTLE Active [id number] 2023 1 Pharmac y Data Transac tion Service Facilit y EZETIMIBE (ezetimibe) , 10 MG, TABLET, ORAL, AUROBINDO PHARM, 500 ea. BOTTLE Active [id number] 4 2023 90 Pharmac y Data Transac tion Service Facilit y fluticasone 50 mcg/inh nasal spray USE TWO SPRAYS INTRANAS ALLY TWICE DAILY DIRECTED , # 16 g, 5 total refill(s ), Acute Complet ed 10/01/2023 2 2022 16.0 Ambulat ory Pharmac y fluticasone 50 mcg/inh nasal spray USE TWO SPRAYS INTRANAS ALLY TWICE A DAY DIRECTED , # 16 g, 4 total refill(s ), Acute Complet ed 08/13/2023 3 2022 16.0 Ambulat ory Pharmac y FLUTICASONE PROPIONATE (FLUTICASON E PROPIONATE) , 50MCG, SPRAY SUSP, NASAL, SHAYLA LABS., 16 g AER W/ADAP Cancele d [id number] : 2023 0 Pharmac y Data Transac tion Service Facilit y HYDROCODONE -ACETAMINOP HEN (HYDROCODON E/ACETAMINO PHEN), 5MG-325MG, TABLET, ORAL, MALLINCKROD T PH, 500 ea. BOTTLE Active [id number] 2023 14 Pharmac y Data Transac tion Service Facilit y METRONIDAZO LE (METRONIDAZ OLE), 500MG, TABLET, ORAL, [employer], 500 ea. BOTTLE Active [id number] 4 2023 21 Pharmac y Data Transac tion Service Facilit y PROGESTERON E (progestero ne, micronized) , 100 MG, CAPSULE, ORAL, [employer], 100 ea. BOTTLE Cancele d [id number] : 2023 0 Pharmac y Data Transac tion Service Facilit y Allergies, Adverse Reactions, Alerts Combined list of allergies from Department of Defense and Veterans Affairs facilities. It does not include entries that were removed or entered in error. Substance Category Reaction Severity Reaction type Status Date Reported Comments Source DAIRY (DO NOT USE, NOT SCREENED) (HOMEOPATHIC DRUGS) Food allergy (disorder) Unknown active [facility] Tahir BA[facility] ([facility] ephedrine/ph enobarbital/ theophylline Propensity to adverse reactions to drug Unknown Active 8 Unknown Organizat ion FLAGYL (METRONIDAZO LE) Drug allergy (disorder) Unknown active [address] [place] [address] Tahir BAUTISTA [facility]) metroNIDAZOL E Propensity to adverse reactions to drug Unknown Active 5 Unknown Organizat ion PENICILLINS Drug allergy (disorder) Unknown active [address] [place] [address] Tahir Rhys [facility]) PENICILLINS Propensity to adverse reactions to drug Unknown Active 4 BREATHING AND RASH Unknown Organizat ion SULFA-DRUGS Drug allergy (disorder) Unknown active [address] [place] [address] Tahir BAUTISTA [facility]) TEDRAL (THEOPHYLL/E PHED HCL/PHENOBAR B) Drug allergy (disorder) Unknown active [address] [place] [address] Tahir [facility] ([facility] Immunizations Combined list of available immunizations from the Department of Defense and Veterans Affairs facilities. 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 Status Comments Source SARS-CoV-2 mRNA(jan ucl-hnuf-rti) vac 2021 217 PFIZER complet ed SARS-CoV- 2 mRNA(valarie douglas-t ris-suc)v ac 11/10/21 Given Ambulat ory Pharmac y COVID-19, mRNA, LNP-S, PF, 30 mcg/0.3 mL dose, adelia-sucrose 2021 [facility] [place] (PFR) Not Given COVID-19, mRNA, LNP-S, PF, 30 mcg/0.3 mL dose, adelia-sucr ose DoD influenza, injectable, quadrivalent, preservative free 2020 NANCY, () Not Given influenza , injectabl e, quadrival ent, preservat la free DoD influenza, injectable, quadrivalent- pf 2019 150 GlaxoSmithKli ne complet ed influenza , injectabl e, quadrival ent-pf 08/14/20 Given Ambulat ory Pharmac y influenza, injectable, quadrivalent, preservative free 2019 ALUL, () Not Given influenza , injectabl e, quadrival ent, preservat la free DoD influenza, injectable, quadrivalent- pf 2018 [id number] 150 Seqirus complet ed influenza , injectabl e, quadrival ent-pf 09/23/19 Given Ambulat ory Pharmac y influenza, injectable, quadrivalent- pf 2018 zzLef t Arm [id number] 040 150 Seqirus complet ed influenza , injectabl e, quadrival ent-pf 09/23/19 Given Ambulat ory Pharmac y Influenza, injectable, quadrivalent, preservative free 1 2018 Unknown, Provider [id number] 150 Seqirus (SEQ) complet ed Influenza , injectabl e, quadrival ent, preservat la free DoD influenza, injectable, quadrivalent- pf [id number] 150 GlaxoSmithKli ne complet ed influenza , injectabl e, quadrival ent-pf 08/13/15 Given Ambulat ory Pharmac y influenza, injectable, quadrivalent- pf 2014 [id number] 150 GlaxoSmithKli ne complet ed influenza , injectabl e, quadrival ent-pf 08/13/15 Given Ambulat ory Pharmac y Influenza, injectable, quadrivalent, preservative free 1 2014 Unknown, Provider [id number] 150 SmithKline (SKB) complet ed Influenza , injectabl e, quadrival ent, preservat la free DoD influenza, seasonal, injectable-pf 2011 [id number] 140 sanofi pasteur complet ed influenza , seasonal, injectabl e-pf 09/16/12 Given Ambulat ory Pharmac y tetanus, diphtheria, acellular pertu is 2011 [id number] 115 GlaxoSmithKli ne complet ed tetanus, diphtheri a, acellular pertussis 09/16/12 Given Ambulat ory Pharmac y tetanus, diphtheria, acellular pertu is 2011 zzLef t Arm [id number] 7BC 115 GlaxoSmithKli ne complet ed tetanus, diphtheri a, acellular pertussis 09/16/12 Given Ambulat ory Pharmac y influenza, seasonal, injectable-pf 2011 zzRig ht Arm [id number] 140 sanofi pasteur complet ed influenza , seasonal, injectabl e-pf 09/16/12 Given Ambulat ory Pharmac y tetanus toxoid, reduced diphtheria toxoid, and acellular pertu is vaccine, adsorbed 1 2011 Unknown, Provider [id number] [address] [place], [place] [address]Kline (SKB) complet ed tetanus toxoid, reduced diphtheri a toxoid, and acellular pertussis vaccine, adsorbed DoD Influenza, seasonal, injectable, preservative free 2 2011 Unknown, Provider [id number] 140 Sanofi Pasteur (PMC) complet ed Influenza , seasonal, injectabl e, preservat la free DoD influenza virus vaccine,split 2009 [id number] CSL Behring complet ed influenza virus vaccine,s plit 08/22/10 Given Ambulat ory Pharmac y influenza virus vaccine,split 2009 zzLef t Arm [id number] 15 CSL Behring complet ed influenza virus vaccine,s plit 08/22/10 Given Ambulat ory Pharmac y influenza virus vaccine, split virus (incl. purified surface antigen)-reti red CODE 1 2009 Unknown, Provider [id number] 15 CSL [employer] (CSL) complet ed influenza virus vaccine, split virus (incl. purified surface antigen)- retired CODE DoD tuberculin purified protein derivative 2008 zzLef t Arm [id number] 96 sanofi pasteur complet ed Patient Tolerance : Negative Ambulat ory Pharmac y tuberculin purified protein derivative 2008 [id number] 96 sanofi pasteur complet ed tuberculi n purified protein derivativ e 02/22/09 Given Ambulat ory Pharmac y tuberculin skin test; purified protein derivative solution, intradermal 1 2008 Unknown, Provider [id number] 96 Sanofi Pasteur (PMC) complet ed tuberculi n skin test; purified protein derivativ e solution, intraderm al DoD Encounters Combined list of: 1) Encounters from Department of Veterans Affairs facilities going backup to the last 18 months, not all VA inpatient encounters are included; 2) Encounters from the Department of Defense facilities going backup to 280 months. Location Location Details Encounter Type Encounter Number Reason For Visit Attending Provider ADM Date DC Date Status Disposition Source [address] [place] [address] Tahir BAUTISTA ([facility]Fam farideh Practice Non-GME FHI2) OUTPATIENT [id number] f/u on allergy meds/ne eds renewal JESSIE PEOPLES 03/23 Released w/o Limitations [address] [place] [address] Tahir BAUTISTA ([facility]F amily Practic e Non-GME FHI2) [address] [place] [address] Tahir B [facility]OSS Healthy Practice Non-GME FHI2) TELE CONSULT [id number] med ALEAH Gu 10/[address] [place] [address] Tahir [facility])(F amily Practic e Non-GME FHI2) [address] [place], [place] [address]B [facility]OSS Healthy Practice Non-GME FHI2) OUTPATIENT [id number] allergi FRED Yanez 11/11 Released w/o Limitations [address] [place] [address])(F amily Practic e Non-GME FHI2) [address] [place], [place] [address]B [facility] Healthy Practice Non-GME FHI2) OUTPATIENT [id number] right cyatic nerve NIRANJAN GARCIA 12/09 Released w/o Limitations [address] [place], [place] [address]B [facility])(F amily Practic e Non-GME FHI2) [address] [place] [address])([facility] Non-GME FHI2) TELE CONSULT [id number] 1540-re CHRISTOPHE Khoury 12/[address] [place] [address])(F amily Practic e Non-GME FHI2) [address] [place] [address])([facility] Non-GME FHI2) OUTPATIENT [id number] ALLERGY MEDICAT ION. LEON ERAZO 12/07 Released w/o Limitations [address] [place] [address])(F amily Practic e Non-GME FHI2) [address] [place] [address])(Opt ometry) OUTPATIENT [id number] ROUTINE EYE EXAM. PH:[phone]*H CRIS ORTIZ 05/18 Released w/o Limitations [address] [place], [place] [address]B [facility])(O ptometr y) [address] [place] [address])([facility] Healthy Practice Non-GME FHI2) OUTPATIENT [id number] f/u on vertigo [id number]# GLORIA FLORES 06/03 Released w/o Limitations [address] [place] [address])(F amily Practic e Non-GME FHI2) [address] [place] [address])([facility] Non-GME FHI1) TELE CONSULT [id number] questnunu n needing lab work - MIRANDA Llamas 06/[address] [place] [address])(F amily Practic e Non-GME FHI1) [address] [place] [address])([facility] farideh Practice Non-GME FHI1) TELE CONSULT [id number] results - JOSÉ Barros P 06/[address] [place] [address])(F amily Practic e Non-GME FHI1) [address] [place] [address])([facility] farideh Practice Non-GME FHI1) OUTPATIENT [id number] r arm phone [phone] VERONICA Beckford 09/23 Released w/o Limitations [address] [place] [address])(F amily Practic e Non-GME FHI1) [address] [place] [address])([facility] Non-GME FHI1) TELE CONSULT [id number] Medical questio CHRISTOPHE Pepper 09/[address] [place] [address])(F amily Practic e Non-GME FHI1) [address] [place] [address])([facility] Non-GME FHI2) OUTPATIENT [id number] bilat GLORIA Loredo 10/25 Released w/o Limitations [address] [place] [address])(F amily Practic e Non-GME FHI2) [address] [place] [address])([facility] farideh Practice Non-GME FHI2) TELE CONSULT [id number] meds CHRISTOPHE Alvarenga 11/[address] [place] [address])(F amily Practic e Non-GME FHI2) [address] [place] [address])([facility] farideh Practice Non-GME FHI1) TELE CONSULT [id number] request labs - JOSÉ Barros 12/[address] [place] [address])(F amily Practic e Non-GME FHI1) [address] [place] [address])([facility] farideh Practice Non-GME FHI2) OUTPATIENT [id number] [facility] hx lupus, wants tested SANDRA GLORIA M Released w/o Limitations [address] [place] [address] Tahir B [facility])(F amily Practic e Non-GME FHI2) [address] [place] [address] Tahir B [facility])([facility] Practice Non-GME FHI2) TELE CONSULT [id number] rad/lab results - BLADE Gomez 12/[address] [place] [address] Tahir B [facility])(F amily Practic e Non-GME FHI2) [address] [place] [address] Tahir B [facility])([facility] Healthy Practice Non-GME FHI2) OUTPATIENT [id number] f/u lab, appt w/rheum atologi st 24 mar GLORIA FLORES M 01/15 Released w/o Limitations [address] [place], [place] [address]B [facility])(F amily Practic e Non-GME FHI2) [address] [place] [address] Tahir B [facility])([facility] Healthy Practice Non-GME FHI2) OUTPATIENT [id number] left ear pain/sw ollen glands/ pain in neck GLORIA FLORES 07/13 Released w/o Limitations [address] [place] [address] Tahir B [facility])(F amily Practic e Non-GME FHI2) [address] [place] [address] Tahir B [facility])([facility] Practice Non-GME FHI2) OUTPATIENT [id number] neck rt arm pain GLORIA FLORES 09/12 Released w/o Limitations [address] [place] [address] Tahir B [facility])(F amily Practic e Non-GME FHI2) [address] [place] [address] Tahir B [facility])([facility] Healthy Practice Non-GME FHI2) OUTPATIENT [id number] sore throat, loss of voice,e ar ache [phone] GLORIA FLORES M 09/27 Released w/o Limitations [address] [place] [address] Tahir B [facility])(F amily Practic e Non-GME FHI2) [address] [place] [address] Tahir [employer] [facility])(OSS Healthy Practice Non-GME FHI1) TELE CONSULT [id number] pcm-Jamshid FREDO Montoya 10/[address] [place] [address] Tahir B [facility])(F amily Practic e Non-GME FHI1) [address] [place] [address] Tahir DAMIANB [facility])([facility] Practice Non-GME FHI1) OUTPATIENT [id number] Sore Throat GLORIA FLORES 10/05 Released w/o Limitations [address] [place] [address] Group Tahir DAMIANB ([facility])(F amily Practic e Non-GME FHI1) [address] [place] [address] Group [employer] [facility]OSS Healthy Practice Non-GME FHI1) TELE CONSULT [id number] pcm -Chandan mensah/test results SCOT ARZATE 10/[address] [place] [address] Group Tahir DAMIANB [facility])(F amily Practic e Non-GME FHI1) [address] [place] [address] Group [employer] [facility])([facility] farideh Practice Non-GME FHI2) TELE CONSULT [id number] Test Results - BRIE Brown 10/[address] [place] [address] [employer] [facility])(F amily Practic e Non-GME FHI2) [address] [place] [address] Tahir DAMIANB ([facility])([facility] Team 4) OUTPATIENT [id number] follow up on referra l to rhuemto logy and burning in feet [phone] GLORIA FLORES 02/08 Released w/o Limitations [address] [place] [address] Group Tahir DAMIANB [facility])([facility] Team 4) [address] [place] [address] Group Tahir DAMIANB [facility])([facility] Team 4) TELE CONSULT [id number] Test Results /Update on Med Status - BLADE Avendano 02/[address] [place] [address] Tahir NATIB [facility] Team 4) [address] [place] [address] [employer]ir [employer] [facility])([facility] Fam Res Tm Red) OUTPATIENT [id number] tb test - GLORIA Corea 02/22 Released w/o Limitations [address] [place] [address] Group [employer] ([facility])([facility] Fam Res Tm Red) [address] [place] [address] Group [employer] [facility])([facility] Team 4) TELE CONSULT [id number] Referra l - GLORIA Sotomayor 03/[address] [place] [address] [employer] ([facility] Team 4) [address] [place] [address] [employer] [facility])([facility] Team 4) OUTPATIENT [id number] carrier clinic g - GLORIA FLORES 04/12 Released w/o Limitations [address] [place] [address] Group Tahir DAMIANB ([facility])([facility] Team 4) [address] [place] [address] Tahir DAMIANB [facility])([facility] Team 4) TELE CONSULT [id number] Informa tion request - BLADE Gomez 04/[address] [place] [address] Group Tahir DAMIANB ([facility])([facility] Team 4) [address] [place] [address] Tahir DAMIANB [facility])([facility] Team 4) TELE CONSULT [id number] STAT Referra l - [place] BLADE Gomez 05/[address] [place] [address] Group Tahir DAMIANB ([facility])([facility] Team 4) [address] [place] [address] Tahir DAMIANB [facility])([facility] Team 4) TELE CONSULT [id number] lab finding BLADE Graves 05/[address] [place] [address] Tahir DAMIANB ([facility])([facility] Team 4) [address] [place] [address] Tahir DAMIANB [facility])([facility] Team 4) OUTPATIENT [id number] lab f/u THERESA POOL 05/20 Released w/o Limitations [address] [place] [address] Group Tahir DAMIANB ([facility])([facility] Team 4) [address] [place] [address] Tahir DAMIANB [facility])([facility] Internal Medicine ) TELE CONSULT [id number] needs a new pt appt./ abnorma l ct scan? REX HEADLEY 06/[address] [place] [address] Group Tahir NATIB [facility])(S cott Interna l Medicin e Tm) [address] [place] [address] Tahir NATIB [facility])([facility] Internal Medicine ) OUTPATIENT [id number] follow- up chest CT JOSÉ MIGUEL MONAE 07/12 Released w/o Limitations [address] [place] [address] Group [employer] [facility])(S cott Interna l Medicin e Tm) [address] [place] [address] [employer] [facility])([facility] Internal Medicine ) TELE CONSULT [id number] 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 JOSÉ MIGUEL MONAE 07/[address] [place] [address] Group [employer] [facility])(S cott Interna l Medicin e Tm) [address] [place] [address] [employer] [facility])([facility] Internal Medicine ) TELE CONSULT [id number] Lab Results JOSÉ MIGUEL MONAE 07/[address] [place] [address] Group Tahir Rhys [facility])(S cott Interna l Medicin e Tm) [address] [place] [address] Tahir Rhys [facility])([facility] Internal Medicine ) TELE CONSULT [id number] request ing an anitbio tic REX HEADLEY Jay 09/[address] [place] [address] Group [facility] ([facility]S cott Interna l Medicin e Tm) [address] [place] [address] [facility])([facility] Internal Medicine ) OUTPATIENT [id number] possibl e sinus infecti on SANTANA, MITALI CPT 09/30 Released w/o Limitations [address] [place] [address] Group [facility])(S cott Interna l Medicin e Tm) [address] [place] [address] [facility])([facility] Internal Medicine ) TELE CONSULT [id number] lab results SANTANA, [facility] CPT 10/[address] [place] [address] Group [facility])(S cott Interna l Medicin e Tm) [address] [place] [address] [facility])([facility] Internal Medicine ) OUTPATIENT [id number] vertigo [id number] LUIS GIBBS 10/21 Released w/o Limitations [address] [place] [address] Group [facility])(S cott Interna l Medicin e Tm) [address] [place] [address] [facility])([facility] Internal Medicine ) TELE CONSULT [id number] RAD RESULTS MITCHELL DANYEL Herrmann 10/[address] [place] [address] Group [facility])(S cott Interna l Medicin e Tm) [facility])([facility] Internal Medicine ) OUTPATIENT [id number] ear pain SANTANA, MITALI CPT 11/20 Released w/o Limitations [address] [place] [address] Group [facility])(S cott Interna l Medicin e Tm) [address] [place] [address] [facility])(Sarthak e Managemen t) TELE CONSULT [id number] CM - Hospita l Admissi on Notific ZARI Martin 11/[address] [place] [address] Group [facility] BAUT[place]A [facility])(C ase Managem ent) [facility])([facility] Internal Medicine ) TELE CONSULT [id number] Questio ns and Informa sindy JOSÉ MIGUEL MONAE 11/29 [facility])(S cott Interna l Medicin e Tm) [facility])([facility] Internal Medicine ) OUTPATIENT [id number] f/u dischar ge from hospita makenna TYRONJOSÉ MIGUEL RASCON 12/05 Released w/o Limitations [facility])(S cott Interna l Medicin e Tm) [address] [place] [address])([facility] Internal Medicine ) TELE CONSULT [id number] DAVID Waldron 01/01 [facility])(S cott Interna l Medicin e Tm) [address] [place] [address])([facility] Internal Medicine ) TELE CONSULT [id number] JOSÉ MIGUEL Hernandez 01/[address] [place] [address] Group [facility])(S cott Interna l Medicin e Tm) [facility])([facility] Internal Medicine ) TELE CONSULT [id number] Rx DAVID Vargas 02/[address] [place] [address] Group [facility])(S cott Interna l Medicin e Tm) [facility])([facility] Internal Medicine ) TELE CONSULT [id number] JUKEBOX ROUTE DRIVER DAVID Lowery 04/[address] [place] [address] Group [facility])(S cott Interna l Medicin e Tm) [facility])(Ob/ Hoop Riveting 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 Helper) TELE CONSULT [id number] GIN Golden 04/22 [facility])(O b/Hoop Riveting 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 Helper) [facility])(Hoop Riveting 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 Helper ecology) OUTPATIENT [id number] LILIAN Ramirez 05/02 Released w/o Limitations [address] [place] [address] [facility])(G ynecolo gy) [facility])(Hoop Riveting 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 Helper ecology) TELE CONSULT [id number] LILIAN Traylor 05/[address] [place] [address] [facility])(G ynecolo gy) [employer] [facility])(Hoop Riveting 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 Helper ecology) TELE CONSULT [id number] request ing medical records ANEESH PAT 05/30 Referred for Appointment [employer] [facility])(G ynecolo gy) [facility])(Opt ometry) OUTPATIENT [id number] eye exam/gl asses [phone] JOSE PALACIOS 06/06 Released w/o Limitations [employer] [facility] ([facility])(O ptometr y) [employer] [facility])(Cto tt Internal Medicine Tm) TELE CONSULT [id number] rx refill DAVID GARCIA 06/16 Referred for Appointment [employer] [facility])(S cott Interna l Medicin e Tm) [facility])([facility] Internal [facility] Tm) OUTPATIENT [id number] Routine f/u Chronic Allergi es/Asth JOSÉ MIGUEL Archuleta 07/03 Released w/o Limitations [employer] [facility])(S cott Interna l Medicin e Tm) [employer] [facility])([facility] Internal Medicine Tm) TELE CONSULT [id number] DANYEL MEDRANO 07/03 [facility])(S cott Interna l Medicin e Tm) [facility])([facility] Internal Medicine Tm) TELE CONSULT [id number] JOSÉ MIGUEL MONAE 07/12 [facility])(S cott Interna l Medicin e Tm) [facility])([facility] Internal Medicine Tm) OUTPATIENT [id number] sinus infecti on [phone] JOSÉ MIGUEL MNOAE 08/08 Released w/o Limitations [employer] [facility])(S cott Interna l Medicin e Tm) [facility])([facility]) OUTPATIENT [id number] High cholest harrison. 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) OUTPATIENT [id number] pap only ph [id number] hx of colpo and abn pap st 1245 no kids LILIAN HARTLEY R 10/24 Released w/o Limitations [address] [place] [address] [facility])(G ynecolo gy) [address] [place] [address] [facility])([facility] Internal Medicine Tm) TELE CONSULT [id number] MITALI Cartagena CPT 12/[address] [place] [address] [facility] ([facility])(S cott Interna l Medicin e Tm) [address] [place] [address])([facility] Internal Medicine Tm) TELE CONSULT [id number] Multipl e Referra DARVIN Forde 12/[address] [place] [address] [facility])(S cott Interna l Medicin e Tm) [address] [place] [address] [facility])(Hoop Riveting 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 Helper ecology) TELE CONSULT [id number] request ing refill on medicat ion LILIAN HARTLEY R 12/[address] [place] [address] [facility])(G ynecolo gy) [address] [place] [address] [facility])(Hoop Riveting 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 Helper ecology) TELE CONSULT [id number] f/u meds ANEESH PAT 01/[address] [place] [address] [facility])(G ynecolo gy) [facility])([facility] Internal Medicine Tm) OUTPATIENT [id number] stomach pain [phone] LUIS GIBBS 02/06 Released w/o Limitations [address] [place] [address] [facility])(S cott Interna l Medicin e Tm) [address] [place] [address] [facility])([facility] Internal Medicine Tm) TELE CONSULT [id number] lab result LUIS GIBBS 02/[address] [place] [address] [facility])(S cott Interna l Medicin e Tm) [address] [place] [address] [facility])([facility] Internal Medicine Tm) TELE CONSULT [id number] rad beatriz GIBBSLUIS MASTERSON Darshana 02/[address] [place] [address] [facility])(S cott Interna l Medicin e Tm) [address] [place] [address] [facility])(Hoop Riveting 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 Helper ecology) TELE CONSULT [id number] Refill HRT med LILIAN HARTLEY 04/[address] [place] [address] Group [facility])(G ynecolo gy) [address] [place] [address] [facility])([facility] Internal Medicine Tm) TELE CONSULT [id number] DAVID England 05/[address] [place] [address] Group [facility])(S cott Interna l Medicin e Tm) [address] [place] [address] [facility])(Hoop Riveting 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 Helper ecology) OUTPATIENT [id number] 6 mo repeat pap, hx abn - [id number] LILIAN HARTLEY 05/15 Released w/o Limitations [address] [place] [address] Group [facility])(G ynecolo gy) [address] [place] [address] [facility])([facility] Internal Medicine Tm) OUTPATIENT [id number] pain in heel [id number] JOSÉ MIGUEL MONAE 07/10 Released w/o Limitations [address] [place] [address] [facility])(S cott Interna l Medicin e Tm) [address] [place] [address] [facility])([facility] Internal Medicine Tm) TELE CONSULT [id number] LIBRA FERRERA 07/17 [facility]ointment [facility])(S cott Interna l Medicin e Tm) [address] [place] [address] [facility])([facility] Internal Medicine Tm) TELE CONSULT [id number] REX Alegria 08/[address] [place] [address] Group [facility] [facility])(S cott Interna l Medicin e Tm) [address] [place] [address] [facility] B [facility])([facility] Internal Medicine Tm) TELE CONSULT [id number] DAVID Ramos 08/[address] [place] [address] [facility])(S cott Interna l Medicin e Tm) [address] [place] [address])(Hoop Riveting 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 Helper ecology) TELE CONSULT [id number] HRT medicat ion refill TONI HERNÁNDEZ Makenna 09/[address] [place] [address])(G ynecolo gy) [address] [place] [address])([facility] Internal Medicine ) TELE CONSULT [id number] alex l REX HEADLEY 11/[address] [place] [address])(S cott Interna l Medicin e Tm) [address] [place] [address])([facility] Internal Medicine ) OUTPATIENT [id number] TEETH HURT/KS ESSURE UNDER NOSE/CO [facility] - [id number] DAYAMI MODI CIV 12/02 Released w/o Limitations [address] [place] [address])(S cott Interna l Medicin e Tm) [address] [place] [address])([facility] Internal Medicine ) TELE CONSULT [id number] Notes Entered by: ONEAL SAM 16 Dec 2011 0753 ------- ------- ------- ------- -- Medicat ion concern s/Derri ckson/9 72.8517 /mnm REX HEADLEY [address] [place] [address])(S cott Interna l Medicin e Tm) [address] [place] [address])([facility] Internal Medicine ) OUTPATIENT [id number] c/o cough, possibl e related to astelin DAYAMI JASSO CIV 12/17 Released w/o Limitations [address] [place] [address])(S cott Interna l Medicin e Tm) [address] [place] [address])([facility] Internal Medicine ) TELE CONSULT [id number] Notes Entered by: REX HEADLEY 31 Dec 2011 1723 ------- ------- ------- ------- -- REX Conrad 12/[address] [place] [address])(S cott Interna l Medicin e Tm) [address] [place] [address])(Sco tt Internal Medicine Tm) TELE CONSULT [id number] Notes Entered by: LOREN JOSUE 01 Jan 2012 0957 ------- ------- ------- ------- -- 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 [facility] ckson/9 [id number] /DAVID Clemons 12/[address] [place] [address])(S cott Interna l Medicin e Tm) [address] [place] [address])(All ergy Resource Sharing) OUTPATIENT 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 PERRY WHITE 12/31 Released w/o Limitations [address] [place] [address])(A llergy Resourc e Sharing ) [address] [place] [address])(Hoop Riveting 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 Helper ecology) OUTPATIENT [id number] Postmen opausal w/ Vag NIRMALA Alvarez 01/03 Released w/o Limitations [address] [place] [address])(G ynecolo gy) [address] [place] [address])(Ob/ Hoop Riveting 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 Helper) TELE CONSULT [id number] Notes Entered by: NIRMALA BOSE 11 Jan [id number] ------- ------- ------- ------- -- Need further workup TONI HERNÁNDEZ 01/[address] [place] [address])(O b/Hoop Riveting 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 Helper) [address] [place] [address])(Hoop Riveting 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 Helper ecology) OUTPATIENT [id number] POSTMEN OPAUSAL BLEEDIN G. PH#[id number] EDEN BARBER 01/21 Released w/o Limitations [address] [place] [address])(G ynecolo gy) [address] [place] [address])(All ergy Resource Sharing) OUTPATIENT [id number] f/u allergi es PERRY WHITE 01/21 Released w/o Limitations [address] [place], [place] [address]B [facility])(A llergy Resourc e Sharing ) [address] [place] [address])(Ob/ Hoop Riveting 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 Helper) TELE CONSULT [id number] Notes Entered by: DANYEL BUSTILLOS 26 Jan 2012 1359 ------- ------- ------- ------- -- Med TONI Burris 01/[address] [place] [address])(O b/Hoop Riveting 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 Helper) [address] [place] [address])(Ob/ Hoop Riveting 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 Helper) TELE CONSULT [id number] Notes Entered by: NIRMALA BOSE 04 Feb 2012 1016 ------- ------- ------- ------- -- Embx results ELISABETHALEXAWHITNEY Herrmann 02/[address] [place] [address])(O b/Hoop Riveting 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 Helper) [address] [place] [address])(Hoop Riveting 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 Helper ecology) OUTPATIENT [id number] sis per gillian [id number] BERNADINE HONG 02/25 Released w/o Limitations [address] [place] [address])(Darshana dodge gy) [address] [place] [address])(Sco tt Internal Medicine Tm) OUTPATIENT [id number] rash getting worse [id number] JOSÉ MIGUEL MONAE 03/15 Released w/o Limitations [address] [place] [address])(S cott Interna l Medicin e Tm) [address] [place] [address])(Hoop Riveting 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 Helper ecology) TELE CONSULT [id number] Notes Entered by: GIN VALDERRAMA 02 May 2012 0825 ------- ------- ------- ------- -- Medicat ion BERNADINE Alvarez 05/[address] [place] [address])([employer] dodge [employer]) [address] [place] [address])(Hoop Riveting 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 Helper ecology) TELE CONSULT [id number] Notes Entered by: MIKEL JIANG 03 May 2012 1510 ------- ------- ------- ------- -- Non-for MIKEL Sanchez 05/[address] [place] [address])(G ynecolo gy) [address] [place] [address] Group [facility])(Hoop Riveting 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 Helper ecology) TELE CONSULT [id number] Notes Entered by: MIKEL JIANG 12 May 2012 0842 ------- ------- ------- ------- -- Non-for mulary medicat ion request MIKEL JIANG 05/[address] [place] [address])(G yneco gy) [address] [place] [address])([facility] Internal Medicine ) TELE CONSULT [id number] Notes Entered by: BETHANY BELL CIA 04 Aug 2012 1023 ------- ------- ------- ------- -- Two referra mitzi rascon - alis/[facility] REX HEADLEY 08/[address] [place] [address])(S cott Interna l Medicin e Tm) [address] [place] [address])([facility] Internal Medicine ) TELE CONSULT [id number] Notes Entered by: ALBANIA LONG 18 Aug 201214 ------- ------- ------- ------- -- REX Soto 08/[address] [place] [address])(S cott Interna l Medicin e Tm) [address] [place] [address])([facility] Internal Medicine ) TELE CONSULT [id number] Notes Entered by: DIONE BAUGH 27 Sep 2012 0734 ------- ------- ------- ------- -- Alban amin - Nanci on - [id number] DAVID GARCIA 09/[address] [place] [address])(S cott Interna l Medicin e Tm) [address] [place] [address])([facility] Internal Medicine Tm) OUTPATIENT [id number] 6 mo f/u Labs/Ch JOSÉ MIGUEL Pearson 09/30 Released w/o Limitations [address] [place] [address])(S cott Interna l Medicin e Tm) [address] [place] [address])([facility] Internal Medicine ) OUTPATIENT [id number] face arturo robles tender to touch - [id number] DARVIN VICENTE 10/14 Released w/o Limitations [address] [place] [address])(S cott Interna l Medicin e Tm) [address] [place] [address])([facility] Internal Medicine ) TELE CONSULT [id number] Notes Entered by: ADRIANA OSUNA 14 Nov 2012 0711 ------- ------- ------- ------- -- Network results - Ophthal mology 2 JOSÉ MIGUEL MONAE 11/[address] [place] [address])(S cott Interna l Medicin e Tm) [address] [place] [address])([facility] Internal Medicine ) TELE CONSULT [id number] Notes Entered by: NANCY LOYOLA 23 Nov 2012 1222 ------- ------- ------- ------- -- Network Results -RHEUMA TOLOGY 11/18/12 JOSÉ MIGUEL MONAE 11/[address] [place] [address])(S cott Interna l Medicin e Tm) [address] [place] [address])([facility] Internal Medicine ) TELE CONSULT [id number] Notes Entered by: LOREN JOSUE 08 Dec 2012 0820 ------- ------- ------- ------- -- UTI/med ication kasi ericksonson/6 [phone] REX HEADLEY 12/[address] [place] [address])(S cott Interna l Medicin e Tm) [address] [place] [address])([facility] Internal Medicine ) OUTPATIENT [id number] c/o UTI symptom JOSÉ MIGUEL Monsivais 12/09 Released w/o Limitations [address] [place] [address])(S cott Interna l Medicin e Tm) [address] [place] [address])([facility] Internal Medicine ) TELE CONSULT [id number] Notes Entered by: BETHANY BELL CIA 20 Jan 2013 0944 ------- ------- ------- ------- -- Renew alex rowley/ [phone] REX HEADLEY 01/[address] [place] [address])(S cott Interna l Medicin e Tm) [address] [place] [address])([facility] Internal Medicine ) TELE CONSULT [id number] Notes Entered by: NANCY LOYOLA 27 Feb 2013 1017 ------- ------- ------- ------- -- Network Results -[facility] RANGEL 02/24/13 FRED SIMMONS 02/[address] [place] [address])(S cott Interna l Medicin e Tm) [address] [place] [address])([facility] Internal Medicine ) TELE CONSULT [id number] Notes Entered by: ABRAHAN MORRIS 04 Apr 2013 1202 ------- ------- ------- ------- -- Network Results [facility] - 02/2413 FRED SIMMONS 04/[address] [place] [address])(S cott Interna l Medicin e Tm) [address] [place] [address])([facility] Internal Medicine ) TELE CONSULT [id number] Notes Entered by: Joni ROCHA 19 May 2013 0800 ------- ------- ------- ------- -- Alex Garcia DAVID GARCIA 05/[address] [place] [address])(S cott Interna l Medicin e Tm) [address] [place] [address])([facility] Internal Medicine Tm) TELE CONSULT [id number] Notes Entered by: Linnea ROCHA 01 Jun 2013 0733 ------- ------- ------- ------- -- Hoop Riveting 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 Helper alex Olivares /[phone] STAT DAVID GARCIA 06/[address] [place] [address])(S cott Interna l Medicin e Tm) [address] [place] [address])([facility] Internal Medicine Tm) TELE CONSULT [id number] Notes Entered by: NANCY LOYOLA 27 Jun 2013 1619 ------- ------- ------- ------- -- Network Results -RHEUMA TOLOGY 06/23/13 EDGARD GARCIA 06/[address] [place] [address])(S cott Interna l Medicin e Tm) [address] [place] [address])([facility] Internal Medicine ) OUTPATIENT [id number] Bilater al ear pain FRED SIMMONS 07/11 Released w/o Limitations [address] [place] [address])(S cott Interna l Medicin e Tm) [address] [place] [address])([facility] Internal Medicine ) TELE CONSULT [id number] Notes Entered by: AJITH HULL 16 Oct 2013 0843 ------- ------- ------- ------- -- Pt needs a retro FRANCIS Demarco 10/[address] [place] [address])(S cott Interna l Medicin e Tm) [address] [place] [address])([facility] Internal Medicine Tm) TELE CONSULT [id number] Notes Entered by: NANCY LOYOLA 10 Nov 2013 1035 ------- ------- ------- ------- -- Network Results -RHEUMA TOLOGY 11/03/13 EDGARD GARCIA 11/[address] [place] [address])(S cott Interna l Medicin e Tm) [address] [place] [address] [facility])([facility] Internal Medicine ) OUTPATIENT [id number] Rt elbow pain x 2 weeks [id number] EDGARD GARCIA 12/07 Released w/o Limitations [address] [place] [address] [facility] ([facility])(S cott Interna l Medicin e Tm) [address] [place] [address])([facility] Internal Medicine ) TELE CONSULT [id number] Notes Entered by: Linnea ROCHA 20 Dec 2013 0729 ------- ------- ------- ------- -- Would like cortiso ne injecti on/Henr y/[phone] ask to interru pt class JOHNNY KHANNA 12/[address] [place] [address] [facility])(S cott Interna l Medicin e Tm) [address] [place] [address] [facility])([facility] Internal Medicine ) OUTPATIENT [id number] cortiso ne shot right elbow per EDGARD Woodson 12/20 Released w/o Limitations [address] [place] [address] [facility])(S cott Interna l Medicin e Tm) [address] [place] [address] [facility])([facility] Internal Medicine ) TELE CONSULT [id number] Notes Entered by: KAYLEIGH ANDRADE 15 Feb 2014 0756 ------- ------- ------- ------- -- Alex Garcia [phone] STEVE WALLACE I 02/[address] [place] [address] Group [facility])(S cott Interna l Medicin e Tm) [address] [place] [address] [facility])([facility] Internal Medicine ) OUTPATIENT [id number] right elbow pain follow up/inje ction didnt help [id number] EDGARD GARCIA 02/28 Released w/o Limitations [address] [place] [address] [facility])(S cott Interna l Medicin e Tm) [address] [place] [address] [facility])([facility] Internal Medicine ) OUTPATIENT [id number] follow up for ER visit for low back pain [id number] JOSE EDGARD N 05/07 Released w/o Limitations [address] [place] [address])(S cott Interna l Medicin e Tm) [address] [place] [address])([facility] Internal Medicine ) TELE CONSULT [id number] Notes Entered by: NANCY LOYOLA 10 May 2014 1209 ------- ------- ------- ------- -- Network Results -RHEUMA TOLOGY 03/16/14 JOSEARMONDGERMAN Macedo 05/[address] [place] [address])([facility]) [address] [place] [address])([facility] Internal Medicine ) OUTPATIENT [id number] low back pain that goes down left side of hip; ITZEL CABALLERO 05/24 Released w/o Limitations [address] [place] [address])([facility]) [address] [place] [address])([facility] Internal Medicine ) TELE CONSULT [id number] Notes Entered by: STEPHAN HIGHTOWER 04 Jun 2014 1027 ------- ------- ------- ------- -- Sx: pain - Jose/Rhys hoffman - * JOHNNY KHANNA 06/[address] [place] [address] [facility])([facility]) [address] [place] [address])([facility] Internal Medicine ) TELE CONSULT [id number] Notes Entered by: OLAF PRECIADO 13 Jun 2014 0837 ------- ------- ------- ------- -- Sx/sore throat, ear pain/he nry/618 .398.22 52* JOHNNY KHANNA 06/[address] [place] [address])([facility]) [address] [place] [address])([facility] Internal Medicine ) TELE CONSULT [id number] Notes Entered by: CAROLINE DELGADO 14 Jun 2014 1418 ------- ------- ------- ------- -- Renew referra l CAROLINE DELGADO 06/14 Referred for Appointment [address] [place] [address] Group [facility])([facility]) [address] [place] [address])([facility] Internal Medicine ) TELE CONSULT [id number] Notes Entered by: RENÉ JOSE 19 Jun 2014 0744 ------- ------- ------- ------- -- 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/ Jose/ DAVID GARCIA 06/[address] [place] [address])([facility]) [address] [place] [address])([facility] Internal Medicine ) TELE CONSULT [id number] Notes Entered by: Joni GARCIA 29 Jun 2014 1228 ------- ------- ------- ------- -- Radiolo gy results FRANCIS PROCTOR 06/[address] [place] [address])([facility]) [address] [place] [address])([facility] Internal Medicine ) OUTPATIENT [id number] f/u for lower back MRI [id number] EDGARD GARCIA 07/02 Released w/o Limitations [address] [place] [address])([facility]) [address] [place] [address])([facility] Internal Medicine ) TELE CONSULT [id number] Notes Entered by: OLAF MELVIN 06 Jul 2014 0745 ------- ------- ------- ------- -- Retro Referra l Urgent Care visit OLAF MELVIN 07/06 Referred for Appointment [address] [place] [address])([facility]) [address] [place] [address])([facility] Internal Medicine ) TELE CONSULT [id number] Notes Entered by: HANK VAZQUEZ 2014 09 ------- ------- ------- ------- -- Network Results -RHEUMA TOLOGY 07/06/14 EDGARD GARCIA 08/[address] [place] [address])([facility]) [address] [place] [address])([facility] Internal Medicine ) TELE CONSULT [id number] Notes Entered by: JOHNNY KHANNA 05 Sep 2014 0839 ------- ------- ------- ------- -- Cough/c old sx's JOHNNY KHANNA 09/[address] [place] [address])([facility]) [address] [place] [address])([facility] Internal Medicine ) TELE CONSULT [id number] Notes Entered by: SEBASTIAN HICKS 19 Sep 2014 0813 ------- ------- ------- ------- -- Opthamo radha turner request ed by PAOLA BRIONES 09/19 Referred for Appointment [address] [place] [address])([facility]) [address] [place] [address])([facility] Internal Medicine ) TELE CONSULT [id number] Notes Entered by: ANANDA CROCKER 23 Oct 2014 1441 ------- ------- ------- ------- -- Network Results -RHEUMA TOLOGY 10/19/14 EDGARD GARCIA 10/[address] [place] [address])([facility]) [address] [place] [address])([facility] Internal Medicine ) TELE CONSULT [id number] Notes Entered by: SHIRA LAWSON 05 Dec 2014 1500 ------- ------- ------- ------- -- Network Results - ALLERGY - 07/13/14 and 10/26/14 EDGARD GARCIA 12/[address] [place] [address])([facility]) [address] [place] [address])([facility] Internal Medicine ) TELE CONSULT [id number] Notes Entered by: SHIRA LAWSON 27 Dec 2014 1143 ------- ------- ------- ------- -- Network Results - ORTHOPE DICS - 4 EDGARD GARCIA 12/[address] [place] [address])([facility]) [address] [place] [address])([facility] Internal Medicine ) TELE CONSULT [id number] Notes Entered by: SCOT MAURER 04 Jan 2015 0921 ------- ------- ------- ------- -- Network results - Urgent Care 014 EDGARD GARCIA 01/[address] [place] [address])([facility]) [address] [place] [address])([facility] Internal Medicine ) TELE CONSULT [id number] Notes Entered by: SCOT MAURER 08 Feb 2015 1353 ------- ------- ------- ------- -- Network results - Urgent Care 014 EDGARD GARCIA 02/[address] [place] [address])([facility] [address] [place] [address])([facility] Internal Medicine ) OUTPATIENT [id number] discuss mild anxiety since Novembe r [phone] EDGARD GARCIA 03/07 Released w/o Limitations [address] [place] [address])([facility]) [address] [place] [address])([facility] Internal Medicine ) TELE CONSULT [id number] Notes Entered by: ADRIANA OSUAN 02 Apr 2015 0945 ------- ------- ------- ------- -- Network results [facility] 5 EDGARD GARCIA 04/[address] [place] [address])([facility]) [address] [place] [address])([facility] Internal Medicine ) TELE CONSULT [id number] Notes Entered by: SHIRA LAWSON 09 Apr 2015 0845 ------- ------- ------- ------- -- Network Results - CARDIOL OGY / Echo - 04/05/15 EDGARD GARCIA 04/[address] [place] [address])([facility]) [address] [place] [address])([facility] Internal [facility]) TELE CONSULT [id number] Notes Entered by: ADRIANA OSUNA 09 Apr 2015 1057 ------- ------- ------- ------- -- Network results [facility] 5 EDGARD GARCIA 04/[address] [place] [address])([facility]) [address] [place] [address])([facility] Internal [facility]) TELE CONSULT [id number] Notes Entered by: SHIRA LAWSON 17 Apr 2015 0821 ------- ------- ------- ------- -- Network Results - CARDIOL OGY/Mon itor - 04/05/15 - 04/11/15 EDGARD GARCIA 04/[address] [place] [address])([facility]) [address] [place] [address])([facility] Internal [facility]) TELE CONSULT [id number] Notes Entered by: BEAU BELL 05 Aug 2015 0723 ------- ------- ------- ------- -- F/u on thyroid /Jose/ 398.225 2 JOHNNY KHANNA 08/[address] [place] [address])([facility]) [address] [place] [address] [facility])([facility] Internal Medicine ) OUTPATIENT [id number] F/U TSH results per EDGARD Arellano 08/07 Released w/o Limitations [address] [place] [address] [facility])([facility]) [address] [place] [address] [facility])([facility] Internal Medicine ) TELE CONSULT [id number] Notes Entered by: MARLENE MCKEON 23 Aug 2015 1004 ------- ------- ------- ------- -- Jose/Henry pdated CHRISTOPHER Ruiz 08/23 Referred for Appointment [address] [place] [address] [facility])([facility]) [address] [place] [address] [facility])([facility] Internal Medicine ) TELE CONSULT [id number] Notes Entered by: BEAU BELL 30 Aug 2015 0751 ------- ------- ------- ------- -- Referra makenna Ontiveros /Jose/ JOHNNY KHANNA 08/[address] [place] [address] [facility])([facility]) [address] [place] [address] [facility])(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) TELE CONSULT [id number] Notes Entered by: IRMA MURILLO 09 Sep 2015 0817 ------- ------- ------- ------- -- Appt against JOSÉ MIGUEL Giron 09/[address] [place] [address] [facility])(G ynecolo gy) [facility] ([facility])(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) OUTPATIENT [id number] Postmen opausal bleedin ggurwinder r michelee nding hystero scopy and EMB NEFTALY PINTO 09/27 Released w/o Limitations [address] [place] [address] [facility] ([facility])(G ynecolo gy) [address] [place] [address] [facility]) TELE CONSULT [id number] Notes Entered by: Sal PECK 03 Dec 2015 0945 ------- ------- ------- ------- -- BREANNA/LONNIE ROAMN/(053 [phone] ZARI NOLAN 12/03 Medication Refill Forwarded [address] [place] [address] [facility])([facility]) [address] [place] [address] [facility])([facility]) OUTPATIENT [id number] Talk about issues of coping with mother passing away [id number] EDGARD GARCIA 12/12 Released w/o Limitations [address] [place] [address] [facility])([facility]) [facility])(Ob/ [employer] Riveting 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 Helper) TELE CONSULT [id number] AFSHIN VIZCARRA 12/[address] [place] [address] [facility])(O b/[employer]eting 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 Helper) [address] [place] [address] [facility])([facility] Internal Medicine ) OUTPATIENT [id number] f/u insomni a EDGARD GARCIA 01/14 Released w/o Limitations [address] [place] [address] [facility])([facility]) [address] [place] [address] [facility])(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) OUTPATIENT [id number] EMB FOR DR PINTO' S PATIENT - [phone] LILIAN HARTLEY 01/23 Released w/o Limitations [address] [place] [address] [facility])(G ynecolo gy) [address] [place] [address] [facility] Tm) TELE CONSULT [id number] Notes Entered by: Darshana MORALES 12 Mar 2016 1224 ------- ------- ------- ------- -- Renewal JOHNNY Latif 03/[address] [place] [address])([facility]) [address] [place] [address])([facility] Internal Medicine ) OUTPATIENT [id number] numbnes s in right arm while sleepin g x 2 weeks// 398.225 2 MALLORY MORALEZ V 05/11 Released w/o Limitations [address] [place] [address])([facility]) [address] [place] [address])([facility] Internal Medicine ) TELE CONSULT [id number] Notes Entered by: EZEQUIEL LAW 15 May 2016 1406 ------- ------- ------- ------- -- X-Ray Results / Jose / [phone] / [phone] 7 - sgj JOHNNY KHANNA 05/[address] [place] [address])([facility]) [address] [place] [address])([facility] Internal Medicine ) TELE CONSULT [id number] Notes Entered by: Lissa BAKER 25 May 2016 1051 ------- ------- ------- ------- -- Alex turner / Jose / ORESTES Salas 05/25 Other Not Elsewhere Classified [address] [place] [address])([facility]) [address] [place] [address])([facility] Internal Medicine ) TELE CONSULT [id number] Notes Entered by: BEAU BELL 01 Jul 2016 0757 ------- ------- ------- ------- -- Sx - Burning Sensati on while Urinati ng/Henr y/398.2 252 MAGDALENEALEXA HAIDERJOSE Herrmann 07/[address] [place] [address])([facility]) [address] [place] [address])([facility] Internal Medicine ) OUTPATIENT [id number] UTI, U/A ordered MIKEL WALDROP 07/01 Released w/o Limitations [address] [place] [address])([facility]) [address] [place] [address])([facility] Internal Medicine ) TELE CONSULT [id number] Notes Entered by: SCOT MAURER 31 Jul 2016 1222 ------- ------- ------- ------- -- Network results Rheumat ology 016 EDGARD LAMA 07/[address] [place] [address])([facility]) [address] [place] [address])([facility] Internal Medicine ) OUTPATIENT [id number] Rt thumb pain x2 mo EDGARD GARCIA 08/04 Released w/o Limitations [address] [place] [address])([facility]) [address] [place] [address])([facility] OUTPATIENT [id number] Trigger thumb, right thumb BRIAN, ROBSON A 08/19 Released w/o Limitations [address] [place] [address])(V A - Orthope dics) [address] [place] [address])([facility] Internal Medicine ) TELE CONSULT [id number] Notes Entered by: ADRIANA OSUNA 21 Oct 2016 1341 ------- ------- ------- ------- -- Network Results Rheumat ology 6 DH EDGARD GARCIA 10/[address] [place] [address])([facility]) [address] [place] [address])([facility] Internal Medicine ) TELE CONSULT [id number] Notes Entered by: Joni GARCIA 22 Oct 2016 1400 ------- ------- ------- ------- -- Lab results EDGARD GARCIA 10/[address] [place] [address])([facility]) [address] [place] [address])(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) OUTPATIENT [id number] [facility] LILIAN HARTLEY 11/13 Released w/o Limitations [address] [place] [address])(G ynecolo gy) [address] [place] [address])(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 ecology) TELE CONSULT [id number] Notes Entered by: MARITA HARTLEY 16 Nov 2016 1702 ------- ------- ------- ------- -- results AFSHIN VIZCARRA 11/[address] [place] [address])(G yneco gy) [address] [place] [address])(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 ecology) TELE CONSULT [id number] Notes Entered by: MARITA HARTLEY 25 Dec 2016 1318 ------- ------- ------- ------- -- results AFSHIN VIZCARRA 12/[address] [place] [address])(G yneco gy) [address] [place] [address])([facility] Internal Medicine ) TELE CONSULT [id number] Notes Entered by: PARKER FARMER 29 Dec 2016 0742 ------- ------- ------- ------- -- Tx before colonos copy/He nry/398 .2252/c JOHNNY Fox 12/[address] [place] [address])([facility]) [address] [place] [address])([facility] Internal Medicine Tm) TELE CONSULT [id number] Notes Entered by: EZEQUIEL LAW 29 Dec 2016 1050 ------- ------- ------- ------- -- Med Renewal / Jose / - sgj EDGARD GARCIA 12/[address] [place] [address])([facility]) [address] [place] [address])([facility] Internal Medicine ) TELE CONSULT [id number] Notes Entered by: ANANDA CROCKERMontez Mora 06 Jan 2017 0828 ------- ------- ------- ------- -- Network Results -GASTRO ENTEROL OGY 01/01/17 COLONOS COPY SDG EDGARD GARCIA 01/[address] [place] [address])([facility]) [address] [place] [address])(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 ecology) TELE CONSULT [id number] Notes Entered by: MARITA HARTLEY 18 Jan 2017 1714 ------- ------- ------- ------- -- results AFSHIN VIZCARRA 01/[address] [place] [address])(Darshana bosch) [address] [place] [address])([facility] Internal Medicine ) TELE CONSULT [id number] Notes Entered by: Montez SMALLS 25 Jan 2017 1536 ------- ------- ------- ------- -- SX - Abdomin al pain, Chills and Nausea/ Jose/ [phone] JOHNNY KHANNA 01/[address] [place] [address])([facility]) [address] [place] [address])([facility] Internal Medicine ) TELE CONSULT [id number] Notes Entered by: PARKER FARMER 11 Feb 2017 1154 ------- ------- ------- ------- -- Alex turner /Jose/ /c JOSÉ Harding 02/11 Referred for Appointment [address] [place] [address])([facility]) [address] [place] [address])([facility] Internal Medicine ) OUTPATIENT [id number] Lower abdomin al pain x EDGARD GARCIA 02/16 Released w/o Limitations [address] [place] [address])([facility]) [address] [place] [address])([facility] Internal Medicine ) TELE CONSULT [id number] Notes Entered by: Mora DRUMMOND 21 Apr 2017 0830 ------- ------- ------- ------- -- Network Results - Ophthal mology 017 DAB EDGARD GARCIA 04/[address] [place] [address])([facility]) [address] [place] [address])([facility] Internal [facility]) TELE CONSULT [id number] Notes Entered by: ANANDA CROCKER 21 May 2017 1033 ------- ------- ------- ------- -- Network Results -RHEUMA TOLOGY 02/19/17 [facility] EDGARD GARCIA 05/[address] [place] [address])([facility]) [address] [place] [address])([facility] Internal Medicine ) OUTPATIENT [id number] f/u after seeing ivana ying / EDGARD GARCIA 05/31 Released w/o Limitations [address] [place] [address])([facility]) [address] [place] [address])([facility] Internal Medicine ) TELE CONSULT [id number] Notes Entered by: Lissa ALCARAZ 29 Jun 2017 1613 ------- ------- ------- ------- -- Network Results Orthope dic Surgery 06/16/17 TSB EDGARD GARCIA 06/[address] [place] [address] [facility])([facility]) [address] [place] [address] [facility])([facility] Internal Medicine ) OUTPATIENT [id number] F/U labs per EDGARD Arellano 08/25 Released w/o Limitations [address] [place] [address] [facility])([facility] Medic[facility] Tm) [address] [place] [address] [facility])([facility] Internal Medicine ) TELE CONSULT [id number] Notes Entered by: MARK CYR 08 Sep 2017 0813 ------- ------- ------- ------- -- Network Results Rheumat ology 07/16/17 EDGARD GARCIA 09/[address] [place] [address] [facility])([facility]) [address] [place] [address] [facility])([facility] Internal Medicine ) TELE CONSULT [id number] Notes Entered by: MARK CYR 25 Oct 2017 1026 ------- ------- ------- ------- -- Network Results - Ophthal mology 7 EDGARD GARCIA 10/[address] [place] [address] [facility])([facility] Tm) [address] [place] [address] [facility])([facility] Internal Medicine ) TELE CONSULT [id number] Notes Entered by: Darshana MORALES 10 Dec 2017 0921 ------- ------- ------- ------- -- Heart care group/ record request (gwp) JOHNNY KHANNA 12/[address] [place] [address] [facility])([facility] Tm) [address] [place] [address] [facility])([facility] Internal Medicine ) OUTPATIENT [id number] Cough and chest congest ion, 972.851 7 SERJIO RIOJAS 02/09 Released w/o Limitations [address] [place] [address])([facility] Tm) [address] [place] [address])([facility] Internal Medicine ) TELE CONSULT [id number] Notes Entered by: SERJIO RIOJAS 11 Feb 2018 1248 ------- ------- ------- ------- -- Chest x-ray report SERJIO RIOJAS 02/[address] [place] [address])([facility]) [address] [place] [address])([facility] Internal Medicine ) TELE CONSULT [id number] Notes Entered by: JOSSY SOLORIO RET 22 Feb 2018 1415 ------- ------- ------- ------- -- Order for CT Scan/Ko ndowe/6 18.972. 8517 JEFF Hurley 02/22 Referred for Appointment [address] [place] [address])([facility]) [address] [place] [address])([facility] Internal Medicine ) TELE CONSULT [id number] Notes Entered by: SERJIO RIOJAS 28 Feb 2018 1258 ------- ------- ------- ------- -- CT and Blood test f/u JOHNNY KHANNA 02/[address] [place] [address])([facility] T[facility]) [address] [place] [address])([facility] Internal Medicine ) OUTPATIENT [id number] F/u Lab, and CT SERJIO RIOJAS 03/04 Released w/o Limitations [address] [place] [address])([facility] Tm) [address] [place] [address])([facility] Internal Medicine ) TELE CONSULT [id number] Notes Entered by: JOSSY SOLORIO RET 15 Mar 2018 0722 ------- ------- ------- ------- -- SX: Sore on Left Calf/Ko ndowe/6 18.972. 8517 JEFF Hurley 03/15 Referred for Appointment [address] [place] [address] Group [facility])([facility] Intern[facility] l Medicin e Tm) [address] [place] [address] [facility])([facility] Internal Medicine ) OUTPATIENT [id number] [place] [facility] F/U - SX persist - Red/wee ping area L lower leg [id number] MICHAEL NUNES 03/16 Released w/o Limitations [address] [place] [address] Group [facility])([facility] Intern[facility] l Medicin e Tm) [address] [place] [address] [facility])([facility] Internal Medicine ) TELE CONSULT [id number] Notes Entered by: OSEAS MCKINNEY A 18 Mar 2018 0945 ------- ------- ------- ------- -- Med Renewal Request / Tung / [phone] 7 - JOHNNY Buck 03/[address] [place] [address] Group [facility])([facility] cott Intern[facility] l Medicin e Tm) [address] [place] [address])([facility] Internal Medicine ) OUTPATIENT [id number] ER f/u, rash on back, arms, legs (ER in [place]) SERJIO RIOJAS 04/04 Released w/o Limitations [address] [place] [address] Group [facility])([facility] cott Interna l Medicin e Tm) [address] [place] [address] [facility])([facility] Internal Medicine ) TELE CONSULT [id number] Notes Entered by: OSEAS MCKINNEY A 05 Apr 2018 1516 ------- ------- ------- ------- -- STAT Mar Appt Referra l Ottoniel Pandeyq/ Tung / Mimi -JOSHUA Aleman 04/[address] [place] [address] [facility])([facility] Intern[facility] l Medicin e Tm) [address] [place] [address] [facility])([facility] Internal Medicine ) OUTPATIENT [id number] ER f/u ([facility] [place] [place] on 05 May, vera ying), 972.851 7 MALLORY MORALEZ V 05/26 Released w/o Limitations [address] [place] [address] Group [facility] DAMIANB ([facility]S cott Interna l Medicin e Tm) [facility] ([facility])([facility] Internal Medicine ) OUTPATIENT [id number] [facility], 972.851 7 MALLORY MORALEZ V 06/23 Released w/o Limitations [address] [place] [address] Group [place] DAMIAN[facility] ([facility])(S cott Interna l Medicin e Tm) [address] [place] [address] Group [facility])([facility] Internal Medicine ) TELE CONSULT [id number] Notes Entered by: OSEAS MCKINNEY 06 Jul 2018 0736 ------- ------- ------- ------- -- Med Renewal Request / Tung / - community [facility] JOSHUA PRECIADO 07/06 Medication Refill Forwarded [address] [place] [address] Group [facility]) [address] [place] [address] Group [facility])([facility] ) TELE CONSULT [id number] Notes Entered by: STEPHAN HIGHTOWER 10 Aug 2018 1031 ------- ------- ------- ------- -- Lab test results - Tung - [id number] - [facility] JOSHUA PRECIADO 08/10 [facility]) [facility])(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) OUTPATIENT [id number] annual WWE JASMIN HONG 08/26 Released w/o Limitations [address] [place] [address] Group [place] NAT[facility] ([facility]G [facility]) [facility])([facility] ) TELE CONSULT [id number] Notes Entered by: Melva SIMEON 22 Sep 2018 0935 ------- ------- ------- ------- -- Client needs a new referra l to VIKTORIA Martin 09/22 Referred for Appointment [address] [place] [address])([facility]) [address] [place] [address])([facility] ) TELE CONSULT [id number] 0 Notes Entered by: CHANDRA PACKER 18 Nov 2018 1211 ------- ------- ------- ------- -- Referra makenna Request /Reed e/ /CHRISTOSS JOSHUA PRECIADO 11/18 Immediate Referral [address] [place] [address])([facility]) [address] [place] [address])([facility] ) OUTPATIENT [id number] Ear pain persist s - F/U [facility] Arthur bass - MALLORY MORALEZ V 01/02 Released w/o Limitations [address] [place] [address])([facility]) [address] [place] [address])([facility] ) TELE CONSULT [id number] Notes Entered by: ASHLEY FITCH 04 Jan 2019 0928 ------- ------- ------- ------- -- Medicat ion reuqest /reed e/ JOHNNY Chester 01/04 Medication Refill Forwarded [address] [place] [address])([facility]) [address] [place] [address])([facility] ) TELE CONSULT [id number] 9 Notes Entered by: EZEQUIEL LAW 28 Mar 2019 0741 ------- ------- ------- ------- -- Med Renewal / [facility] / - sgj JOHNNY KHANNA 03/28 Medication Refill Forwarded [address] [place] [address])([facility]) [address] [place] [address])([facility] ) TELE CONSULT [id number] 9 Notes Entered by: GAVIN GILANIT A 14 Apr 2019 1507 ------- ------- ------- ------- -- Orthope dic Referra l Request / [facility]/ - JOHNNY Buck 04/14 Other Not Elsewhere Classified [address] [place] [address])([facility]) [address] [place] [address])([facility] ) TELE CONSULT [id number] Notes Entered by: PARKER FARMER 02 Jun 2019 0833 ------- ------- ------- ------- -- Referra l Renewal /[facility] /[id number] 17/JOSÉ Little 06/02 Other Not Elsewhere Classified [address] [place] [address])([facility]) [address] [place] [address])([facility] ) OUTPATIENT [id number] Cough,s ore throat, face pain x4 days,61 8.972.8 517 FRANCIS PROCTOR 06/30 Released w/o Limitations [address] [place] [address])([facility]) [address] [place] [address])([facility] ) TELE CONSULT [id number] 3 Notes Entered by: GAVIN GILANIT A 11 Jul 2019 0758 ------- ------- ------- ------- -- ER Refusal -SX- Cough persist / Chamber s/ - ajh JEFF YUAN 07/11 Referred for Appointment [address] [place] [address])([facility]) [address] [place] [address])([facility] ) TELE CONSULT [id number] Notes Entered by: ITA SANDERS 19 Jul 2019 0759 ------- ------- ------- ------- -- Network results Rheumat ology 019 JASON PAYNE 07/[address] [place] [address])([facility]) [address] [place] [address])([facility] ) OUTPATIENT [id number] Right arm pain / tinglin g to fingers [id number] FRANCIS PROCTOR 08/24 Released w/o Limitations [address] [place] [address])([facility]) [address] [place] [address])([facility] ) TELE CONSULT [id number] 9 Notes Entered by: Lissa ALCARAZ 12 Sep 2019 1019 ------- ------- ------- ------- -- Network results OT 019 JASON HAQUE 09/[address] [place] [address])([facility]) [address] [place] [address])([facility] ) TELE CONSULT [id number] Notes Entered by: Darshana MORALES 04 Oct 2019 0820 ------- ------- ------- ------- -- referra l request / quantum matthew / JOHNNY Jimenez 10/04 Other Not Elsewhere Classified [address] [place] [address])([facility]) [address] [place] [address])([facility] ) TELE CONSULT [id number] 1 Notes Entered by: STEPHAN HIGHTOWER Dec 2019 1020 ------- ------- ------- ------- -- F/U Spec - Referra l req - Chamber s - - JOHNNY Cleary 10/13 Other Not Elsewhere Classified [address] [place] [address])([facility]) [address] [place] [address])([facility] ) TELE CONSULT [id number] 5 Notes Entered by: BEAU BELL 20 Oct 2019 0803 ------- ------- ------- ------- -- Referra makenna Discrep damian/Ch ambers/ CRIS JEREZ 10/20 Other Not Elsewhere Classified [address] [place] [address])([facility]) [address] [place] [address])([facility] ) TELE CONSULT [id number] 9 Notes Entered by: Lissa ALCARAZ 20 Oct 2019 1552 ------- ------- ------- ------- -- Network results derm 019 JASON HAQUE 10/[address] [place] [address])([facility]) [address] [place] [address])([facility] ) TELE CONSULT [id number] 3 Notes Entered by: BRITTA FONG 07 Nov 2019 0722 ------- ------- ------- ------- -- Referra l Correct ion/ Chamber s/ JOSÉ MARTIN 11/07 Other Not Elsewhere Classified [facility])([facility] Intern[facility] Medic[facility] Tm) [address] [place] [address])([facility] ) OUTPATIENT [id number] medicat ion refills KOJO ALCARAZ 11/15 Released w/o Limitations [address] [place] [address])([facility]) [address] [place] [address])([facility] ) TELE CONSULT [id number] 6 Notes Entered by: Montez GOMEZ 17 Nov 2019 1459 ------- ------- ------- ------- -- Network results Physica l Therapy 020 KOJO LEON 11/[address] [place] [address])([facility]) [address] [place] [address])([facility] ) TELE CONSULT [id number] Notes Entered by: Montez GOMEZ 23 Nov 2019 1317 ------- ------- ------- ------- -- Network results Ophthal mology 020 ALD KOJO ALCARAZ 11/[address] [place] [address])([facility]) [address] [place] [address])([facility] ) TELE CONSULT [id number] 3 Notes Entered by: Montez GOMEZ 01 Jan 2020 1220 ------- ------- ------- ------- -- Network results Rheumat ology 020 JASON MONTIEL 12/[address] [place] [address])([facility]) [address] [place] [address])([facility] ) TELE CONSULT [id number] 6 Notes Entered by: CHRIS MODI 28 Mar 2020 1509 ------- ------- ------- ------- -- Rx Ottoniel /Chemo rivera/618. [id number] 7 JEFF YUAN 03/28 Medication Refill Forwarded [address] [place] [address])([facility]) [address] [place] [address])([facility] Tm) TELE CONSULT [id number] 3 Notes Entered by: Montez GOMEZ 17 May 2020 1656 ------- ------- ------- ------- -- Network [facility] mology 020 ALD KOJO ALCARAZ 05/[address] [place] [address])([facility]) [address] [place] [address])([facility] Tm) TELE CONSULT [id number] 3 Notes Entered by: EZEQUIEL LAW 22 May 2020 1051 ------- ------- ------- ------- -- Referra mensah Renewal - Appt Jul Angelito crocker / - sgj CRIS JEREZ 05/22 Other Not Elsewhere Classified [address] [place] [address])([facility]) [address] [place] [address])([facility] ) OUTPATIENT [id number] Discuss jonathan de león s; KOJO ALCARAZ 08/13 Released w/o Limitations [address] [place] [address])([facility]) [address] [place] [address])([facility] Tm) TELE CONSULT [id number] 6 Notes Entered by: STEPHAN HIGHTOWER 23 Aug 2020 1350 ------- ------- ------- ------- -- ER F/U - Angelito Ceja - CRIS Krishnamurthy 08/23 Other Not Elsewhere Classified [address] [place] [address])([facility]) Procedures Combined list of: 1) Procedures from Department of Veterans Affairs facilities [facility], not all VA non-surgical procedures are included; 2) All procedures from the Department of Defense facilities. Procedure Procedure Type Code Date Perfomer Miladis Cohen e Non-Physician Phone Call To Patient/Provider Brief (5-10min) Non-Physician Phone Call To Patient/Provider Brief (5-10min) [id number] 2017 VIKTORIA CASTELLANOS DoD Non-Physician Phone Call To Patient/Provider Brief (5-10min) Non-Physician Phone Call To Patient/Provider Brief (5-10min) [id number] 2017 JOSHUA PRECIADO DoD Non-Physician Phone Call To Patient/Provider Brief (5-10min) Non-Physician Phone Call To Patient/Provider Brief (5-10min) [id number] 2017 JOSHUA PRECIADO DoD Non-Physician Phone Call To Patient/Provider Brief (5-10min) Non-Physician Phone Call To Patient/Provider Brief (5-10min) [id number] 2017 JOHNNY KHANNA DoD Non-Physician Phone Call To Patient/Provider Brief (5-10min) Non-Physician Phone Call To Patient/Provider Brief (5-10min) [id number] 2017 JEFF FLORES DoD Non-Physician Phone Call To Patient/Provider Brief (5-10min) Non-Physician Phone Call To Patient/Provider Brief (5-10min) [id number] 2017 SUSAN CHRISTENSEN DoD Non-Physician Phone Call To Patient/Provider Brief (5-10min) Non-Physician Phone Call To Patient/Provider Brief (5-10min) [id number] 2017 JEFF FLORES DoD Non-Physician Phone Call To Patient/Provider Brief (5-10min) Non-Physician Phone Call To Patient/Provider Brief (5-10min) [id number] 2017 JOHNNY KHANNA DoD Non-Physician Phone Call To Patient/Provider Brief (5-10min) Non-Physician Phone Call To Patient/Provider Brief (5-10min) [id number] 2016 JOSÉ RANDALL DoD Non-Physician Phone Call To Patient/Provider Brief (5-10min) Non-Physician Phone Call To Patient/Provider Brief (5-10min) [id number] 2016 JOHNNY KHANNA [facility] Non-Physician Phone Call To Patient/Provider Brief (5-10min) Non-Physician Phone Call To Patient/Provider Brief (5-10min) [id number] 2016 JOHNNY KHANNA [facility] Screening papanicolaou smear; obtaining, preparing and conveyance of cervical or vaginal smear to laboratory 2016 LILIAN HARTLEY [facility] Non-Physician Phone Call To Patient/Provider Brief (5-10min) Non-Physician Phone Call To Patient/Provider Brief (5-10min) [id number] 2015 JOHNNY KHANNA [facility] Non-Physician Phone Call To Patient/Provider Brief (5-10min) Non-Physician Phone Call To Patient/Provider Brief (5-10min) [id number] 2015 ORESTES GOLDSMITH [facility] Non-Physician Phone Call To Patient/Provider Brief (5-10min) Non-Physician Phone Call To Patient/Provider Brief (5-10min) [id number] 2015 JOHNNY KHANNA [facility] Non-Physician Phone Call To Patient/Provider Brief (5-10min) Non-Physician Phone Call To Patient/Provider Brief (5-10min) [id number] 2015 JOHNNY KHANNA [facility] Non-Physician Phone Call To Patient/Provider Brief (5-10min) Non-Physician Phone Call To Patient/Provider Brief (5-10min) [id number] 2014 JOSÉ MIGUEL HORN [facility] Non-Physician Phone Call To Patient/Provider Brief (5-10min) Non-Physician Phone Call To Patient/Provider Brief (5-10min) [id number] 2014 CHRISTOPHER WEBER [facility] ECG 12-Lead With Interpretation And Report ECG 12-Lead With Interpretation And Report [id number] 2014 EDGARD GARCIA [facility] Non-Physician Phone Call To Patient/Provider Brief (5-10min) Non-Physician Phone Call To Patient/Provider Brief (5-10min) [id number] 2013 PAOLA HICKS [facility] Non-Physician Phone Call To Patient/Provider Brief (5-10min) Non-Physician Phone Call To Patient/Provider Brief (5-10min) [id number] 2013 JOHNNY KHANNA DoD Non-Physician Phone Call To Patient/Provider Brief (5-10min) Non-Physician Phone Call To Patient/Provider Brief (5-10min) [id number] 2013 OLAF MELVIN [facility] Non-Physician Phone Call To Patient/Provider Brief (5-10min) Non-Physician Phone Call To Patient/Provider Brief (5-10min) [id number] 2013 FRANCIS PROCTOR [facility] Non-Physician Phone Call To Pt/Provider Intermed (11-20 min) Non-Physician Phone Call To Pt/Provider Intermed (11-20 min) [id number] 2013 DAVID GARCIA [facility] Non-Physician Phone Call To Patient/Provider Brief (5-10min) Non-Physician Phone Call To Patient/Provider Brief (5-10min) [id number] 2013 CAROLINE DELGADO [facility] Non-Physician Phone Call To Patient/Provider Brief (5-10min) Non-Physician Phone Call To Patient/Provider Brief (5-10min) [id number] 2013 JOHNNY KHANNA DoD Corticosteroids Injection At Tendon Insertion Corticosteroids Injection At Tendon Insertion [id number] 2013 EDGARD GARCIA [facility] Non-Physician Phone Call To Patient/Provider Brief (5-10min) Non-Physician Phone Call To Patient/Provider Brief (5-10min) [id number] 2013 JOHNNY KHANNA DoD Non-Physician Phone Call To Patient/Provider Brief (5-10min) Non-Physician Phone Call To Patient/Provider Brief (5-10min) [id number] 2012 FRANCIS PROCTOR Saline Infusion Sonohysterography W/ Saline Inj During Transvaginal Sonography Saline Infusion Sonohysterography W/ Saline Inj During Transvaginal Sonography [id number] 2011 BERNADINE HONG DoD Urine HCG, Test Urine HCG, Test 82929 2011 BERNADINE HONG Hcg -neg DoD Non-Physician Phone Call To Patient/Provider Brief (5-10min) Non-Physician Phone Call To Patient/Provider Brief (5-10min) [id number] 2011 TONI HERNÁNDEZ [facility] Endometrial Biopsy By Suction Endometrial Biopsy By Suction 48140 2011 EDEN BARBER [facility] Test Test [id number] 2011 NIRMALA BOSE [facility] Spirometry Pre-bronchodilator Spirometry Pre-bronchodilator 41982 2011 PERRY WHITE [facility] Non-Physician Phone Call To Patient/Provider Brief (5-10min) Non-Physician Phone Call To Patient/Provider Brief (5-10min) [id number] 2010 TONI HERNÁNDEZ Makenna [facility] Screening papanicolaou smear; obtaining, preparing and conveyance of cervical or vaginal smear to laboratory 2010 LILIAN HARTLEY Non-Physician Phone Call To Patient/Provider Brief (5-10min) Non-Physician Phone Call To Patient/Provider Brief (5-10min) [id number] 2010 DAVID GARCIA Non-Physician Phone Call To Patient/Provider Brief (5-10min) Non-Physician Phone Call To Patient/Provider Brief (5-10min) [id number] 2010 DAVID GARCIA Screening papanicolaou smear; obtaining, preparing and conveyance of cervical or vaginal smear to laboratory 2010 LILIAN HARTLEY Medical Nutrition Therapy Initial A e ment And Intervention Each 15 Minutes Medical Nutrition Therapy Initial Assessment And Intervention Each 15 Minutes [id number] 2009 DUGLAS WRAY [facility] Determination Of Refractive State Determination Of Refractive State 72370 2009 SUSAN PALACIOS Ophthalmological New Patient Start Comprehensive Care Ophthalmological New Patient Start Comprehensive Care 90154 2009 SUSAN PALACIOS Colposcopy Cervix With Biopsy Colposcopy Cervix With Biopsy [id number] 2009 LILIAN HARTLEY Test Test [id number] 2009 LILIAN HARTLEY Non-Physician Phone Call To Patient/Provider Brief (5-10min) Non-Physician Phone Call To Patient/Provider Brief (5-10min) [id number] 2009 DAVID GARCIA Skin Test Anergy Tuberculin Intradermal Skin Test Anergy Tuberculin Intradermal 65915 2008 PIERCE MORGAN [facility] Non-Physician Phone Call To Pt/Provider Intermed (11-20 min) Non-Physician Phone Call To Pt/Provider Intermed (11-20 min) [id number] 2007 SCOT ARZATE [facility] Determination Of Refractive State Determination Of Refractive State 32420 2006 CRIS ORTIZ [facility] Ophthalmological New Patient Start Comprehensive Care Ophthalmological New Patient Start Comprehensive Care [id number] 2006 CRIS ORTIZ DoD TELE ASSESS & MGT SRV PROV QUAL NONPHYS HLTH CARE PRO TO EST PAT,PARENT,GUARD NOT ORIG REL ASSESS & MGT SRV PROV W/IN PREV 7 DAYS NOR LEAD ASSESS & MGT SRV/PX W/IN NXT 24 HR/SOON APT;5-10 MIN MED DIS 2017 DoD TELE ASSESS & MGT SRV PROV QUAL NONPHYS HLTH CARE PRO TO EST PAT,PARENT,GUARD NOT ORIG REL ASSESS & MGT SRV PROV W/IN PREV 7 DAYS NOR LEAD ASSESS & MGT SRV/PX W/IN NXT 24 HR/SOON APT;5-10 MIN MED DIS 2017 DoD TELE ASSESS & MGT SRV PROV QUAL NONPHYS HLTH CARE PRO TO EST PAT,PARENT,GUARD NOT ORIG REL ASSESS & MGT SRV PROV W/IN PREV 7 DAYS NOR LEAD ASSESS & MGT SRV/PX W/IN NXT 24 HR/SOON APT;5-10 MIN MED DIS 2017 DoD TELE ASSESS & MGT SRV PROV QUAL NONPHYS HLTH CARE PRO TO EST PAT,PARENT,GUARD NOT ORIG REL ASSESS & MGT SRV PROV W/IN PREV 7 DAYS NOR LEAD ASSESS & MGT SRV/PX W/IN NXT 24 HR/SOON APT;5-10 MIN MED DIS 2017 DoD TELE ASSESS & MGT SRV PROV QUAL NONPHYS HLTH CARE PRO TO EST PAT,PARENT,GUARD NOT ORIG REL ASSESS & MGT SRV PROV W/IN PREV 7 DAYS NOR LEAD ASSESS & MGT SRV/PX W/IN NXT 24 HR/SOON APT;5-10 MIN MED DIS 2017 DoD TELE ASSESS & MGT SRV PROV QUAL NONPHYS HLTH CARE PRO TO EST PAT,PARENT,GUARD NOT ORIG REL ASSESS & MGT SRV PROV W/IN PREV 7 DAYS NOR LEAD ASSESS & MGT SRV/PX W/IN NXT 24 HR/SOON APT;5-10 MIN MED DIS 2017 DoD TELE ASSESS & MGT SRV PROV QUAL NONPHYS HLTH CARE PRO TO EST PAT,PARENT,GUARD NOT ORIG REL ASSESS & MGT SRV PROV W/IN PREV 7 DAYS NOR LEAD ASSESS & MGT SRV/PX W/IN NXT 24 HR/SOON APT;5-10 MIN MED DIS 2017 DoD TELE ASSESS & MGT SRV PROV QUAL NONPHYS HLTH CARE PRO TO EST PAT,PARENT,GUARD NOT ORIG REL ASSESS & MGT SRV PROV W/IN PREV 7 DAYS NOR LEAD ASSESS & MGT SRV/PX W/IN NXT 24 HR/SOON APT;5-10 MIN MED DIS 2017 DoD TELE ASSESS & MGT SRV PROV QUAL NONPHYS HLTH CARE PRO TO EST PAT,PARENT,GUARD NOT ORIG REL ASSESS & MGT SRV PROV W/IN PREV 7 DAYS NOR LEAD ASSESS & MGT SRV/PX W/IN NXT 24 HR/SOON APT;5-10 MIN MED DIS 2016 DoD TELE ASSESS & MGT SRV PROV QUAL NONPHYS HLTH CARE PRO TO EST PAT,PARENT,GUARD NOT ORIG REL ASSESS & MGT SRV PROV W/IN PREV 7 DAYS NOR LEAD ASSESS & MGT SRV/PX W/IN NXT 24 HR/SOON APT;5-10 MIN MED DIS 2016 DoD TELE ASSESS & MGT SRV PROV QUAL NONPHYS HLTH CARE PRO TO EST PAT,PARENT,GUARD NOT ORIG REL ASSESS & MGT SRV PROV W/IN PREV 7 DAYS NOR LEAD ASSESS & MGT SRV/PX W/IN NXT 24 HR/SOON APT;5-10 MIN MED DIS 2016 DoD SCREENING PAPANICOLAOU SMEAR; OBTAINING, PREPARING AND CONVEYANCE OF CERVICAL OR VAGINAL SMEAR TO LABORATORY 2016 DoD TELE ASSESS & MGT SRV PROV QUAL NONPHYS HLTH CARE PRO TO EST PAT,PARENT,GUARD NOT ORIG REL ASSESS & MGT SRV PROV W/IN PREV 7 DAYS NOR LEAD ASSESS & MGT SRV/PX W/IN NXT 24 HR/SOON APT;5-10 MIN MED DIS 2015 DoD TELE ASSESS & MGT SRV PROV QUAL NONPHYS HLTH CARE PRO TO EST PAT,PARENT,GUARD NOT ORIG REL ASSESS & MGT SRV PROV W/IN PREV 7 DAYS NOR LEAD ASSESS & MGT SRV/PX W/IN NXT 24 HR/SOON APT;5-10 MIN MED DIS 2015 DoD TELE ASSESS & MGT SRV PROV QUAL NONPHYS HLTH CARE PRO TO EST PAT,PARENT,GUARD NOT ORIG REL ASSESS & MGT SRV PROV W/IN PREV 7 DAYS NOR LEAD ASSESS & MGT SRV/PX W/IN NXT 24 HR/SOON APT;5-10 MIN MED DIS 2015 DoD TELE ASSESS & MGT SRV PROV QUAL NONPHYS HLTH CARE PRO TO EST PAT,PARENT,GUARD NOT ORIG REL ASSESS & MGT SRV PROV W/IN PREV 7 DAYS NOR LEAD ASSESS & MGT SRV/PX W/IN NXT 24 HR/SOON APT;5-10 MIN MED DIS 2015 DoD TELE ASSESS & MGT SRV PROV QUAL NONPHYS HLTH CARE PRO TO EST PAT,PARENT,GUARD NOT ORIG REL ASSESS & MGT SRV PROV W/IN PREV 7 DAYS NOR LEAD ASSESS & MGT SRV/PX W/IN NXT 24 HR/SOON APT;5-10 MIN MED DIS 2014 DoD TELE ASSESS & MGT SRV PROV QUAL NONPHYS HLTH CARE PRO TO EST PAT,PARENT,GUARD NOT ORIG REL ASSESS & MGT SRV PROV W/IN PREV 7 DAYS NOR LEAD ASSESS & MGT SRV/PX W/IN NXT 24 HR/SOON APT;5-10 MIN MED DIS 2014 DoD ELECTROCARDIOGRAM, ROUTINE ECG WITH AT LEAST 12 LEADS; WITH INTERPRETATION AND REPORT 2014 DoD TELE ASSESS & MGT SRV PROV QUAL NONPHYS HLTH CARE PRO TO EST PAT,PARENT,GUARD NOT ORIG REL ASSESS & MGT SRV PROV W/IN PREV 7 DAYS NOR LEAD ASSESS & MGT SRV/PX W/IN NXT 24 HR/SOON APT;5-10 MIN MED DIS 2013 DoD TELE ASSESS & MGT SRV PROV QUAL NONPHYS HLTH CARE PRO TO EST PAT,PARENT,GUARD NOT ORIG REL ASSESS & MGT SRV PROV W/IN PREV 7 DAYS NOR LEAD ASSESS & MGT SRV/PX W/IN NXT 24 HR/SOON APT;5-10 MIN MED DIS 2013 DoD TELE ASSESS & MGT SRV PROV QUAL NONPHYS HLTH CARE PRO TO EST PAT,PARENT,GUARD NOT ORIG REL ASSESS & MGT SRV PROV W/IN PREV 7 DAYS NOR LEAD ASSESS & MGT SRV/PX W/IN NXT 24 HR/SOON APT;5-10 MIN MED DIS 2013 DoD TELE ASSESS & MGT SRV PROV QUAL NONPHYS HLTH CARE PRO TO EST PAT,PARENT,GUARD NOT ORIG REL ASSESS & MGT SRV PROV W/IN PREV 7 DAYS NOR LEAD ASSESS & MGT SRV/PX W/IN NXT 24 HR/SOON APT;5-10 MIN MED DIS 2013 DoD TELE ASSESS & MGT SRV PROV QUAL NONPHYS HLTH CARE PRO TO EST PAT,PARENT,GUARD NOT ORIG REL ASSESS & MGT SRV PROV W/IN PREV 7 DAYS NOR LEAD ASSESS & MGT SRV/PX W/IN NXT 24H/SOON APT; 11-20 MIN MED DIS 2013 DoD TELE ASSESS & MGT SRV PROV QUAL NONPHYS HLTH CARE PRO TO EST PAT,PARENT,GUARD NOT ORIG REL ASSESS & MGT SRV PROV W/IN PREV 7 DAYS NOR LEAD ASSESS & MGT SRV/PX W/IN NXT 24 HR/SOON APT;5-10 MIN MED DIS 2013 DoD TELE ASSESS & MGT SRV PROV QUAL NONPHYS HLTH CARE PRO TO EST PAT,PARENT,GUARD NOT ORIG REL ASSESS & MGT SRV PROV W/IN PREV 7 DAYS NOR LEAD ASSESS & MGT SRV/PX W/IN NXT 24 HR/SOON APT;5-10 MIN MED DIS 2013 DoD INJECTION(S); SINGLE TENDON SHEATH, OR LIGAMENT, APONEUROSIS (EG, PLANTAR FASCIA) 2013 DoD TELE ASSESS & MGT SRV PROV QUAL NONPHYS HLTH CARE PRO TO EST PAT,PARENT,GUARD NOT ORIG REL ASSESS & MGT SRV PROV W/IN PREV 7 DAYS NOR LEAD ASSESS & MGT SRV/PX W/IN NXT 24 HR/SOON APT;5-10 MIN MED DIS 2013 DoD TELE ASSESS & MGT SRV PROV QUAL NONPHYS HLTH CARE PRO TO EST PAT,PARENT,GUARD NOT ORIG REL ASSESS & MGT SRV PROV W/IN PREV 7 DAYS NOR LEAD ASSESS & MGT SRV/PX W/IN NXT 24 HR/SOON APT;5-10 MIN MED DIS 2012 DoD GONADOTROPIN, CHORIONIC (HCG); QUALITATIVE 2011 DoD TELE ASSESS & MGT SRV PROV QUAL NONPHYS HLTH CARE PRO TO EST PAT,PARENT,GUARD NOT ORIG REL ASSESS & MGT SRV PROV W/IN PREV 7 DAYS NOR LEAD ASSESS & MGT SRV/PX W/IN NXT 24 HR/SOON APT;5-10 MIN MED DIS 2011 DoD ENDOMETRIAL SAMPLING (BIOPSY) WITH OR WITHOUT ENDOCERVICAL SAMPLING (BIOPSY), WITHOUT CERVICAL DILATION, ANY METHOD (SEPARATE PROCEDURE) 2011 DoD URINE TEST, BY VISUAL COLOR COMPARISON METHODS 2011 DoD SPIROMETRY, INCLUDING GRAPHIC RECORD, TOTAL AND TIMED VITAL CAPACITY, EXPIRATORY FLOW RATE MEASUREMENT(S), WITH OR WITHOUT MAXIMAL VOLUNTARY VENTILATION 2011 DoD TELE ASSESS & MGT SRV PROV QUAL NONPHYS HLTH CARE PRO TO EST PAT,PARENT,GUARD NOT ORIG REL ASSESS & MGT SRV PROV W/IN PREV 7 DAYS NOR LEAD ASSESS & MGT SRV/PX W/IN NXT 24 HR/SOON APT;5-10 MIN MED DIS 2010 DoD TELE ASSESS & MGT SRV PROV QUAL NONPHYS HLTH CARE PRO TO EST PAT,PARENT,GUARD NOT ORIG REL ASSESS & MGT SRV PROV W/IN PREV 7 DAYS NOR LEAD ASSESS & MGT SRV/PX W/IN NXT 24 HR/SOON APT;5-10 MIN MED DIS 2010 DoD TELE ASSESS & MGT SRV PROV QUAL NONPHYS HLTH CARE PRO TO EST PAT,PARENT,GUARD NOT ORIG REL ASSESS & MGT SRV PROV W/IN PREV 7 DAYS NOR LEAD ASSESS & MGT SRV/PX W/IN NXT 24 HR/SOON APT;5-10 MIN MED DIS 2010 DoD SCREENING [place]AP[place]ICOLAOU SMEAR; OBTAINING, PREPARING AND CONVEYANCE OF CERVICAL OR VAGINAL SMEAR TO LABORATORY 2010 DoD MEDICAL NUTRITION THERAPY; INITIAL ASSESSMENT AND INTERVENTION, INDIVIDUAL, [id number] WITH THE PATIENT, EACH 15 MINUTES 2009 [facility] DETERMINATION OF REFRACTIVE STATE 2009 DoD URINE TEST, BY VISUAL COLOR COMPARISON METHODS 2009 DoD TELE ASSESS & MGT SRV PROV QUAL NONPHYS HLTH CARE PRO TO EST PAT,PARENT,GUARD NOT ORIG REL ASSESS & MGT SRV PROV W/IN PREV 7 DAYS NOR LEAD ASSESS & MGT SRV/PX W/IN NXT 24 HR/SOON APT;5-10 MIN MED DIS 2009 DoD SKIN TEST; TUBERCULOSIS, INTRADERMAL 2008 DoD TELE ASSESS & MGT SRV PROV QUAL NONPHYS HLTH CARE PRO TO EST PAT,PARENT,GUARD NOT ORIG REL ASSESS & MGT SRV PROV W/IN PREV 7 DAYS NOR LEAD ASSESS & MGT SRV/PX W/IN NXT 24H/SOON APT; 11-20 MIN MED DIS 2007 DoD DETERMINATION OF REFRACTIVE STATE 2006 DoD NONINVASIVE EAR OR PULSE OXIMETRY FOR OXYGEN SATURATION; SINGLE DETERMINATION 2004 DoD DETERMINATION OF REFRACTIVE STATE 2003 DoD DESTRUCTION (EG, LASER SURGERY, ELECTROSURGERY, CRYOSURGERY, CHEMOSURGERY, SURGICAL CURETTEMENT), PREMALIGNANT LESIONS (EG, ACTINIC KERATOSES); FIRST LESION 2002 DoD DESTRUCTION (EG, LASER SURGERY, ELECTROSURGERY, CRYOSURGERY, CHEMOSURGERY, SURGICAL CURETTEMENT), PREMALIGNANT LESIONS (EG, ACTINIC KERATOSES); FIRST LESION 2001 DoD DESTRUCTION (EG, LASER SURGERY, ELECTROSURGERY, CRYOSURGERY, CHEMOSURGERY, SURGICAL CURETTEMENT), PREMALIGNANT LESIONS (EG, ACTINIC KERATOSES); FIRST LESION 2001 DoD No data available for this section Ambulato ry Pharmacy Social History Combined list of available smoking, tobacco, and other social history from Department of Defense and Veterans Affairs facilities. Social History Type Response Date Comment Sourc e This section is an empty social history section. DoD Assessment and Plan Combined list of future care activities from Department of Defense and Veterans Affairs facilities (e.g., assessment and plan notes, appointments, orders, and referrals). Additional future care activities may be listed in the Plan of Care section. Result Assessment and Plan Date Source Assessment and Plan No data available for this section 03/18/2025 Ambulatory Pharmacy Functional Status Combined list of recent functional and cognitive assessments recorded at [facility] of Defense and Veterans Affairs (VA).VA Functional Moca Measurement (FIM) Scale: 1 = Total Assistance (Subject = 0% +), 2 = Maximal Assistance (Subject = 25% +), 3 = Moderate Assistance (Subject = 50% +), 4 = Minimal Assistance (Subject = 75% +), 5 = Supervision, 6 = Modified Moca (Device), 7 = Complete Moca (Timely, Safely). Assessment Date/Time Source Assessment Type Assessment Skill Assessment Score Assessment Details No data available for this section
--- OUTSIDE RECORDS SUMMARY | 2025-03-18 04:58 | XMS_ITS | Clinical Summary ---
Author Organization [facility] [address] Address [address] [place] [address] Care Team Providers Care Public Speaking Coach Name Role Phone Daryl Garcia MD Primary Care Provider [phone] Allergies Active Allergy Reactions Criticality Noted Date [...] Comments Hx Other Medical laparoscopy; Co mments: [facility] 04/01/2015 - Hx Other Medical seasonal allerg ies; Comments: [facility] 04/01/2015 - Hx Other Medical asthma; Comment s: [facility] 04/01/2015 - Hx Other Medical arthritis; Comm ents: [facility] 04/01/2015 - Hx Other Medical high cholestero l; Comments: [facility] 04/01/2015 - Dizziness Hyperlipidemia Heart murmur Allergic [...] on file Legal 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 Gender Identity Not on file Sexual Orientation Not on file Obstetrics History Last Filed Vital Signs Vital Sign Reading Time Taken Comments Blood Pressure 120/68 12/21/2017 4:22 PM FAMILY AND CONSUMER EDUCATION TEACHER Pulse 91 12/21/2017 4:22 PM FAMILY AND CONSUMER EDUCATION TEACHER Temperature - - Respiratory Rate - - Oxygen Saturation 98% 12/21/2017 4:22 PM FAMILY AND CONSUMER EDUCATION TEACHER Inhaled Oxygen Concentration - - Weight 90.3 kg (199 lb) 12/21/2017 4:22 PM FAMILY AND CONSUMER EDUCATION TEACHER Height 167.6 cm (5' 6) 12/21/2017 4:22 PM FAMILY AND CONSUMER EDUCATION TEACHER Body Mass Index 32.12 12/21/2017 4:22 PM FAMILY AND CONSUMER EDUCATION TEACHER Plan of Treatment Not on file Insurance [facility] CLAIM[facility] Care Teams Public Speaking Coach Relationship Specialty Start Date End Date Daryl Garcia MD [address] [place] [address] PCP - General 04/01/15
--- OUTSIDE RECORDS SUMMARY | 2025-03-18 04:59 | XMS_ITS | Clinical Summary ---
Author Organization [facility] b-datum Address [address] [place] [address] Care Team Providers Care Engineering Operator Name Role Phone Seb Burkett DO Primary Care Provider [phone] Source Comments [facility],non-owned Affiliates and Associated Physician Practices is amultiple site organization consisting of ambulatory clinics and hospital sitesin [place], [place], [place] and [place]. This disclosure is being madepursuant to the Care Everywhere program and may not contain all information available regarding this patient. Last updated 18.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 Gender Identity Not on file Sexual Orientation Not on file Last Filed Vital Signs Vital Sign Reading Time Taken Comments Blood Pressure 124/72 09/26/2021 1:47 PM DATA ENTRY TECHNICIAN Pulse 80 09/26/2021 1:47 PM DATA ENTRY TECHNICIAN Temperature 36.8 C (98.3 F) 09/26/2021 1:47 PM DATA ENTRY TECHNICIAN Respiratory Rate 20 05/30/2021 1:13 PM CDT Oxygen Saturation 98% 05/19/2019 2:31 PM CDT Inhaled Oxygen Concentration - - Weight 94.3 kg (208 lb) 09/26/2021 1:47 PM DATA ENTRY TECHNICIAN Height 167.6 cm (5' 6) 09/26/2021 1:47 PM DATA ENTRY TECHNICIAN Body Mass Index 33.57 09/26/2021 1:47 PM DATA ENTRY TECHNICIAN Plan of Treatment Health Maintenance Due Date [...] NEGATIVE. Report drafted by George Vo DO (vice president of academic affairs). Yoni Herring MD assisted in the interpretation [...] - 26 mg/dL 03/07/2019 11:59 AM CDT [facility] Creatinine 1.1 0.6 - 1.2 mg/dL 03/07/2019 11:59 AM CDT [facility] Sodium 143 136 - 145 mmol/L 03/07/2019 11:59 AM CDT [facility] Potassium 4.2 3.5 - 4.5 mmol/L 03/07/2019 11:59 AM [facility] Chloride 107 98 - 107 mmol/L 03/07/2019 11:59 AM [facility] CO2 25 22 - 29 mmol/L 03/07/2019 11:59 AM [facility] Glucose 78 70 - 115 mg/dL 03/07/2019 11:59 AM [facility] Calcium 9.8 8.4 - 10.2 mg/dL 03/07/2019 11:59 AM [facility] Protein Total 7.4 6.0 - 8.3 g/dL 03/07/2019 11:59 AM [facility] Albumin 4.3 3.4 - 5.0 g/dL 03/07/2019 11:59 AM [facility] Bilirubin Total 0.7 0.2 - 1.2 mg/dL 03/07/2019 11:59 AM [facility] Alkaline Phosphatase 80 40 - 150 Units/L 03/07/2019 11:59 AM [facility] ALT 21 0 - 55 Units/L 03/07/2019 11:59 AM [facility] AST 31 5 - 34 Units/L 03/07/2019 11:59 AM [facility] Anion Gap 15 8 - 18 03/07/2019 11:59 AM [facility] BUN/Creatinine Ratio 14 7 - 23 03/07/2019 11:59 AM [facility] Osmolality Calculated 296 270 - 300 mOsm/kg 03/07/2019 11:59 AM [facility] Albumin/Globulin Ratio 1.4 1.1 - 2.3 03/07/2019 11:59 AM [facility] eGFR >60 >60 mL/min/1.7 3 m2 03/07/2019 11:59 AM [facility] Blood BLOOD SPECIMEN / Unknown Lab Venipuncture / Unknown 03/07/2019 11:17 AM T 03/07/2019 11:27 AM [facility] us Rolan Arboleda MD LAB - CHEMISTRY ORDERABLES F inal Result [facility] [address] [phone] from Last 3 Months or Most Recently Relevant to Health Maintenance Insurance Member Subscriber Plan / Payer (Ef fective for All Dates) Name:Jasbir Xiong Relation to Subscriber:Self Name:JASBIR XIONG Payer ID:[id number] (NAIC) Group ID:Not on file Type:/ Address: [address] Member Subscriber Plan / Payer (Ef fective for All Dates) Name:Jasbir Xiong Relation to Subscriber:Self Name:Jasbir Xiong Payer ID:[id number] (NAIC) Group ID:Not on file Type:/ Address: [address] * Guarantor: JASBIR XIONG Account Type Relation to Patient Date of Phone Billing Address Personal/Family [address] [place] [phone] Member Subscriber Plan / Payer (Ef fective for All Dates) Name:Jasbir Xiong Relation to Subscriber:Self Name:Jasbir Xiong Payer ID:[id number] (NAIC) Group ID:Not on file Type:/ Address: [place] [id number] SELF PAY NO INSURANCE Member Subscriber Plan / Payer (Ef fective for All Dates) Name:Jasbir Xiong Member ID:Not on file Relation to Subscriber:Not on file Name:JASBIR XIONG Subscriber ID:Not on file (Home) Address: [address] [place] [phone] Payer ID:Not on file Group ID:Not on file Type:Self Pay Address: [place], [place] * Guarantor: JASBIR XIONG Account Type Relation to Patient Date of Phone Billing Address Personal/Family [address] [place] [phone] SELF PAY NO INSURANCE Member Subscriber Plan / Payer (Ef fective for All Dates) Name:Jasbir Xiong Member ID:Not on file Relation to Subscriber:Not on file Name:JASBIR XIONG Subscriber ID:Not on file (Home) Address: [address] [place], [place] [id number] Payer ID:Not on file Group ID:Not on file Type:Self Pay Address: [place], [place] * Guarantor: JASBIR XIONG Account Type Relation to Patient Date of Phone Billing Address Personal/Family [address] [place] [phone] SELF PAY NO INSURANCE Member Subscriber Plan / Payer (Ef fective for All Dates) Name:Jasbir Xiong Member ID:Not on file Relation to Subscriber:Not on file Name:JASBIR XIONG Subscriber ID:Not on file (Home) Address: [address] [place] [phone] Payer ID:Not on file Group ID:Not on file Type:Self Pay Address: [place], [place] Care Teams Engineering Operator Relationship Specialty Start Date End Date Seb Burkett DO [address] [place] [address] PCP - General 02/19/21
--- OUTSIDE RECORDS SUMMARY | 2025-03-18 04:59 | XMS_ITS | Encounter Summary ---
Author Organization [facility] Care Team Providers Care Alterations Tailor Name Role Phone Daryl Garcia MD Primary Care Provider [phone] Encounter Details Date Type Department Care Team (Latest Contact Info) Description 06/22/2017 Orders Only [facility] CLINCONV ProviderEdward MD [address] [place] [id number] Social History Tobacco Use Types Packs/Day Years Used Date Smoking Tobacco: Never Alcohol Use Standard Drinks/Week Comments Yes 0 (1 standard drink = 0.6 oz pur e alcohol) Comments Unknown Sex and Gender Information Value Date Recorded Sex Assigned at Not on file 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
[2025-03-18 05:10] VITALS: BP 97/58; PULSE 81; RESP 16; O2SAT 100
[2025-03-18 06:19] VITALS: BP 90/59; PULSE 75; RESP 11; O2SAT 98
--- NOTE | 2025-03-18 06:33 | ECG_ITS ---
Test Date: 2025-03-18 06:37:44 Measurements Intervals [place] Rate: 70 P: 52 NM: 160 QRS: 12 QRSD: 102 T: 58 QT: 412 QTc: 447 Interpretive Statements SINUS RHYTHM CONSIDER ANTERIOR INFARCT, AGE INDETERMINATE ABNORMAL ECG Compared to ECG 03/18/2025 03:32:21 NO SIGNIFICANT CHANGE Electronically Signed On 03-18-2025 06:59:04 CDT by Lux Vu D.O.
[2025-03-18 06:56] LABS: Troponin I < 0.012 ng/mL (0.000-0.034)
== END 2025-03-18 07:22 | disposition home or self-care (01) ==
PROVIDERS: Emergency Provider Student in an Organized Health Care Education/Training Program; PCP Emergency Medicine
DX: R10.13 Epigastric pain (principal); R74.01 Elevation of levels of liver transaminase levels; E78.5 Hyperlipidemia, unspecified; M06.9 Rheumatoid arthritis, unspecified
CPT/HCPCS: 36415; 71045; 74177; 80053; 83690; 84484; 85025; 85610; 85730; 93005; 96361; 96374; 96375; 99284; A9270; J2270; J2405; J7120; Q9967

== ENCOUNTER 2025-04-07 07:35 | Outpatient (CLI) | payer OTHER, SELFPAY ==
--- NOTE | ~2025-04-07 | US_ITS ---
Limited Abdominal Sonogram: Real-time sonographic imaging of the right upper quadrant was performed. Clinical History: Right upper quadrant pain Findings: The liver appears normal with no evidence of solid mass lesion or bile duct dilatation. 1. 1 cm septated cystic lesion present in the right hepatic lobe. Main portal vein demonstrates normal d irection of flow. The gallbladder is well distended, and appears normal with no evidence of gallstone or wall thickening. The common bile duct measures 5 mm. The visualized pancreas, aorta, and IVC are unremarkable. Impression: No significant abnormality seen. 1.1 cm septated cystic lesion in the liver, most likely benign. Reviewed, dictated and finalized at location . Impression: No significant abnormality seen. 1.1 cm septated cystic lesion in the liver, mo st likely benign.
== END 2025-04-07 07:36 | disposition home or self-care (01) ==
PROVIDERS: PCP Emergency Medicine; Visit Provider Emergency Medicine
DX: R10.11 Right upper quadrant pain (principal); K76.89 Other specified diseases of liver
CPT/HCPCS: 76705

== ENCOUNTER 2025-08-28 15:18 | Outpatient (CLI) | payer OTHER, SELFPAY ==
--- NOTE | ~2025-08-28 | MM_ITS ---
EXAMINATION: MM screening juan BI w kishore HISTORY: Screening TECHNIQUE: Craniocaudal and mediolateral oblique 3-D tomosynthesis images were obtained and synthetic 2-D images were generated. CAD analysis was submitted and interpreted. COMPARISON: 11/01/2015 BREAST PARENCHYMAL COMPOSITION: Dense: The breasts are extremely dense, which lowers the sensitivity of mammography. FINDINGS: There is no evidence of suspicious mass, calcification, or architectural distortion to suggest malignancy in either breast. There has been no suspicious interval change. IMPRESSION: 1. No mammographic evidence of malignancy. 2. Recommend routine screening mammography in one year. BI-RADS Category 1: Negative Reviewed, dictated and finalized at location B. BIKE MECHANIC
--- OUTSIDE RECORDS SUMMARY | 2025-08-28 15:26 | XMS_ITS | Encounter Summary ---
Author Organization [facility] Address [address] [place] [phone] Phone Care Team Providers Care Road Freight Brake Coupler Name Role Phone Seb Burkett DO Primary Care Provider [phone] Reason for Visit * Reason Onset Date Comments Med Refill 12/24/2020 Encounter Details Date Type Department Care Team (Late st Contact Info) Description 12/24/2020 Refill [facility] Nephrology and Hypertension [address] [place] [id number] John Boles MA Social History Tobacco Use Types Packs/Day Years Used Date Smoking Tobacco: Never Smokeless Tobacco: Never Alcohol Use Standard Drinks/Week Comments Yes 0 (1 standard drink = 0.6 oz pur e alcohol) occ Comments Unknown Sex and Gender Information Value Date Recorded Sex Assigned at Not on file Legal Sex Female 1:49 PM MST Gender Identity Not on file Sexual Orientation Not on file documented as of this encounter Plan of Treatment Not on file documented as of this encounter Visit Diagnoses Not on filedocumented in this encounter Care Teams Road Freight Brake Coupler Relationship Specialty Start Date End Date Seb Burkett DO [address] [place] [phone] PCP - General Internal Medicine 10/29/20 documented as of this encounter
--- OUTSIDE RECORDS SUMMARY | 2025-08-28 15:26 | XMS_ITS | Clinical Summary ---
Author Organization [facility] Address [address] [place] [id number] Phone Care Team Providers Care Machine Set Up Operator Name Role Phone Seb Burkett Primary Care Provider [phone] Allergies Active Allergy Reactions Criticality Noted Date Comments Atorvastatin Itching Low 07/16/2017 Epinephrine 01/16/2008 Other reaction(s): Other Metronidazole Rash,Unknown Medium 09/27/2015 Milk (Cow) 10/31/2020 Other Anaphylaxis High 09/30/2010 Tedral; asthma attack Received name: Other Penicillins Anaphylaxis,Unknown High 09/25/2010 Sulfa Antibiotics Other (see comments),Rash High 09/25/2010 Asthma attack, includes Sulfasalazine., , Medications albuterol HFA (PROVENTIL HFA) 108 (90 Base) MCG/ACT inhaler 2 puffs every 4-6 hours 6 Active cetirizine (ZyrTEC) 10 MG tablet 0 Active Diclofenac Sodium 1 % gel Apply 4 g topically 6 Active fluticasone (FLONASE) 50 MCG/ACT nasal spray 0 Active multivitamin (THERAGRAN) tablet Take 1 tablet by mouth daily Active olopatadine (PATADAY) 0.2 % ophthalmic solution Administer 1 drop into affected eye(s) 7 Active triamcinolone (KENALOG) 0.1 % ointment 0 Active Active Problems Problem Noted Date Diagnosed Date 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 Generalized edema 11/30/2020 Persistent proteinuria 11/30/2020 Other allergic rhinitis 11/20/2016 Overview (02/20/2021): Recalled that she has positive skin test to cats and house dust mites at [place] in 1996 Rheumatoid arthritis 08/01/2015 Overview (10/31/2020): +RF-MTX tried in past but dc'ed due to elevated LFTs Immunizations Immunization Administration Dates Next Due Influenza Split Preservative Free ID 10/06/2016, 10/19/2014,11/03/2013 Influenza TIV (IM) 08/09/2022,09/23/2021, 020 Influenza, Injectable, Quadr ivalent, Preservative Free 09/23/2019,08/13/2015 Influenza, Quadrivalent 08/22/2010 Influenza, Unspecified 10/06/2016,10/19/2014, Influenza, split virus, trivalent, PF 07/16/2017 ,09/16/2012 Tdap 09/16/2012 Social History Tobacco Use Types Packs/Day Years Used Date Smoking Tobacco: Never Smokeless Tobacco: Never Alcohol Use Standard Drinks/Week Comments Yes 0 (1 standard drink = 0.6 oz pur e alcohol) occ Comments Unknown Sex and Gender Information Value Date Recorded Sex Assigned at Not on file Legal Sex Female 1:49 PM [facility] Gender Identity Not on file Sexual Orientation Not on file Last Filed Vital Signs Vital Sign Reading Time Taken Comments Blood Pressure 126/70 08/19/2022 3:55 PM CDT Pulse 72 08/19/2022 3:55 PM CDT Temperature 36.1 C (97 F) 08/19/2022 3:55 PM CDT Respiratory Rate - - Oxygen Saturation - - Inhaled Oxygen Concentration - - Weight 82.1 kg (181 lb) 08/19/2022 3:55 PM CDT Height 167.6 cm (5' 6) 08/19/2022 3:55 PM CDT Body Mass Index 29.21 08/19/2022 3:55 PM CDT Plan of Treatment Health Maintenance Due Date Last Done Comments Influenza Vaccine (#1) 2025 , 09/23/2021, 08/14/2020, Additional history exists Insurance Care Teams Machine Set Up Operator Relationship Specialty Start Date End Date Seb Burkett DO [address] [place] [phone] PCP - General Internal Medicine 10/29/20
--- OUTSIDE RECORDS SUMMARY | 2025-08-28 15:26 | XMS_ITS | Clinical Summary ---
Author Organization [facility] [address] Address [address] [place] [address] Care Team Providers Care Nurse Paralegal Name Role Phone Daryl Garcia MD Primary Care Provider [phone] Allergies Active Allergy Reactions Criticality Noted Date [...] Comments Hx Other Medical laparoscopy; Co mments: [facility] 04/01/2015 - Hx Other Medical seasonal allerg ies; Comments: [facility] 04/01/2015 - Hx Other Medical asthma; Comment s: [facility] 04/01/2015 - Hx Other Medical arthritis; Comm ents: [facility] 04/01/2015 - Hx Other Medical high cholestero l; Comments: [facility] 04/01/2015 - Dizziness Hyperlipidemia Heart murmur Allergic [...] on file Legal Sex Female 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 [employer] Gender Identity Not on file Sexual Orientation Not on file Last Filed Vital Signs Vital Sign Reading Time Taken Comments Blood Pressure 120/68 12/21/2017 4:22 PM SUPER[employer] Pulse 91 12/21/2017 4:22 PM SUPER[employer]OR [employer] Temperature - - Respiratory Rate - - Oxygen Saturation 98% 12/21/2017 4:22 PM SUPER[employer]OR [employer] Inhaled Oxygen Concentration - - Weight 90.3 kg (199 lb) 12/21/2017 4:22 PM SUPER[employer] Height 167.6 cm (5' 6) 12/21/2017 4:22 PM SUPERVISOR [employer] Body Mass Index 32.12 12/21/2017 4:22 PM SUPERVISOR [employer] Plan of Treatment Not on file Insurance [facility] CLAIMS Care Teams Nurse Paralegal Relationship Specialty Start Date End Date Daryl Garcia MD [address] [place] [address] PCP - General 04/01/15
--- OUTSIDE RECORDS SUMMARY | 2025-08-28 15:26 | XMS_ITS | Clinical Summary ---
Author Organization [facility] Address [address] [place] [address] Care Team Providers Care Drum Drier Name Role Phone Seb Burkett Primary Care Provider [phone] Source Comments [facility],non-owned Affiliates and Associated Physician Practices is amultiple site organization consisting of ambulatory clinics and hospital sitesin [place], [place], [place] and [place]. This disclosure is being madepursuant to the Care Everywhere program and may not contain all information available regarding this patient. Last updated 18.[facility] Allergies Active Allergy Reactions Criticality Noted Date [...] fluticasone propionate (FLONASE) 50 MCG/ACT nasal spray Iola 1 spray into the nose 7 Active [...] Active AYR SALINE NASAL RINSE 1.57 g Iola into each nostril every evening 9 Active [...] to cats and house dust mites at [place] in 1996 Mild intermittent asthma, uncomplicated 11/20/19 [...] on file Legal Sex Female 5:25 PM SUPERVISOR P[employer]DER [employer] Gender Identity Not on file Sexual Orientation Not on file Last Filed Vital Signs Vital Sign Reading Time Taken Comments Blood Pressure 124/72 09/26/2021 1:47 PM SUPERVIS[employer] Pulse 80 09/26/2021 1:47 PM [employer] Temperature 36.8 C (98.3 F) 09/26/2021 1:47 PM SUPER[employer] Respiratory Rate 20 05/30/2021 1:13 PM CDT Oxygen Saturation 98% 05/19/2019 2:31 PM CDT Inhaled Oxygen Concentration - - Weight 94.3 kg (208 lb) 09/26/2021 1:47 PM [employer] Height 167.6 cm (5' 6) 09/26/2021 1:47 PM SU[employer] Body Mass Index 33.57 09/26/2021 1:47 PM [employer]PER[employer] Plan of Treatment Health Maintenance Due Date Last Done Comments COLOGUARD (AGES 45-75) - COLON CA SCREENING 1961 COLON MONITORING 1961 COLONOSCOPY - COLON CA SCREENING 1961 CT COLONOGRAPHY - COLON CA SCREENING 1961 Colorectal Cancer Screening 1961 FIT - COLON CA SCREENING 1961 FLEX SIG - COLON CA SCREENING 1961 LIPID TESTING 1961 COVID-19 VACCINE (#1) 1966 HIV SCREENING 1976 HEPATITIS C SCREENING 08/02/1979 PNEUMOCOCCAL VACCINE 50+ (1 of 2 - PCV) 1980 ZOSTER VACCINE (1 of 2) 1980 PAP SMEAR 1982 Respiratory Syncytial Virus (RSV) Vaccine Pt: or over 60 yrs (1 - Risk 60-74 years 1-dose series) 2021 SCREENING FOR DIABETES 03/07/2022 9, 07/16/2017, 02/11/2016, Additional history exists DTAP/TDAP/TD VACCINES (2 - Td or Tdap) 09/16/2022 09/16/2012 MAMMOGRAM 06/27/2023 06/27/2021 DEPRESSION SCREENING 10/18/2024 INFLUENZA VACCINE (#1) 2025 1, 08/14/2020, 09/23/2019, Additional history exists HEPATITIS B [...] NEGATIVE. Report drafted by George Vo DO (executive vice president and chief financial officer). Yoni Herring MD assisted in the interpretation [...] - 26 mg/dL 03/07/2019 11:59 AM CDT [facility] Creatinine 1.1 0.6 - 1.2 mg/dL 03/07/2019 11:59 AM CDT [facility] Sodium 143 136 - 145 mmol/L 03/07/2019 11:59 AM T [facility] Potassium 4.2 3.5 - 4.5 mmol/L 03/07/2019 11:59 AM [facility] Chloride 107 98 - 107 mmol/L 03/07/2019 11:59 AM [facility] CO2 25 22 - 29 mmol/L 03/07/2019 11:59 AM [facility] Glucose 78 70 - 115 mg/dL 03/07/2019 11:59 AM [facility] Calcium 9.8 8.4 - 10.2 mg/dL 03/07/2019 11:59 AM [facility] Protein Total 7.4 6.0 - 8.3 g/dL 03/07/2019 11:59 AM [facility] Albumin 4.3 3.4 - 5.0 g/dL 03/07/2019 11:59 AM [facility] Bilirubin Total 0.7 0.2 - 1.2 mg/dL 03/07/2019 11:59 AM [facility] Alkaline Phosphatase 80 40 - 150 Units/L 03/07/2019 11:59 AM [facility] ALT 21 0 - 55 Units/L 03/07/2019 11:59 AM [facility] AST 31 5 - 34 Units/L 03/07/2019 11:59 AM [facility] Anion Gap 15 8 - 18 03/07/2019 11:59 AM [facility] BUN/Creatinine Ratio 14 7 - 23 03/07/2019 11:59 AM [facility] Osmolality Calculated 296 270 - 300 mOsm/kg 03/07/2019 11:59 AM [facility] Albumin/Globulin Ratio 1.4 1.1 - 2.3 03/07/2019 11:59 AM [facility] eGFR >60 >60 mL/min/1.7 3 m2 03/07/2019 11:59 AM [facility] Blood BLOOD SPECIMEN / Unknown Lab Venipuncture / Unknown 03/07/2019 11:17 AM T 03/07/2019 11:27 AM [facility] us Rolan Arboleda MD LAB - CHEMISTRY ORDERABLES F inal Result [facility] [address] [phone] from Last 3 Months or Most Recently Relevant to Health Maintenance Insurance Member Subscriber Plan / Payer (Ef fective for All Dates) Name:Jasbir Xiong Relation to Subscriber:Self Name:JASBIR XIONG Payer ID:[id number] (NAIC) Group ID:Not on file Type:/ Address: [address] * Guarantor: JASBIR XIONG Account Type Relation to Patient Date of Phone Billing Address Personal/Family [address] [place] [phone] SELF PAY NO INSURANCE Member Subscriber Plan / Payer (Ef fective for All Dates) Name:Jasbir Xiong Member ID:Not on file Relation to Subscriber:Not on file Name:JASBIR XIONG Subscriber ID:Not on file (Home) Address: [address] [place] [phone] Payer ID:Not on file Group ID:Not on file Type:Self Pay Address: [place], [place] * Guarantor: JASBIR XIONG Account Type Relation to Patient Date of Phone Billing Address Personal/Family [address] [place], [place] [phone] SELF PAY NO INSURANCE Member Subscriber Plan / Payer (Ef fective for All Dates) Name:Jasbir Xiong Member ID:Not on file Relation to Subscriber:Not on file Name:JASBIR XIONG Subscriber ID:Not on file (Home) Address: [address] [place], [place] [id number] Payer ID:Not on file Group ID:Not on file Type:Self Pay Address: [place], [place] * Guarantor: JASBIR XIONG Account Type Relation to Patient Date of Phone Billing Address Personal/Family [address] [place], [place] [address] SELF PAY NO INSURANCE Member Subscriber Plan / Payer (Ef fective for All Dates) Name:Jasbir Xiong Member ID:Not on file Relation to Subscriber:Not on file Name:JASBIR XIONG Subscriber ID:Not on file (Home) Address: [address] [place] [id number] Payer ID:Not on file Group ID:Not on file Type:Self Pay Address: [place], [place] Care Teams Drum Drier Relationship Specialty Start Date End Date Seb Burkett DO [address] [place] [address] PCP - General 02/19/21
--- OUTSIDE RECORDS SUMMARY | 2025-08-28 15:26 | XMS_ITS | Clinical Summary ---
Author Organization [facility] Address [address] [place] [id number] Care Team Providers Care Back Padder Name Role Phone Unavailable Primary Care Provider Unavailabl e Social History Tobacco Use Types Packs/Day Years Used Date Smoking Tobacco: Never Assessed Comments Unknown Sex and Gender Information Value Date Recorded Sex Assigned at Not on file Legal Sex Female 4:54 PM CDT Gender Identity Not on file Sexual Orientation Not on file Last Filed Vital Signs Vital Sign Reading Time Taken Comments Blood Pressure 108/76 05/13/2018 12:58 PM CDT Pulse 85 05/13/2018 12:58 PM CDT Temperature - - Respiratory Rate - - Oxygen Saturation - - Inhaled Oxygen Concentration - - Weight 94.3 kg (208 lb) 05/13/2018 12:58 PM CDT Height 167.6 cm (5' 6) 05/13/2018 12:58 PM CDT Body Mass Index 33.57 05/13/2018 12:58 PM CDT Plan of Treatment Health Maintenance Due Date Last Done Comments Cervical Cancer Screening Pa p Smear (Age 30 to 64) Every 3 Years 1961 Colorectal Cancer Screening Colonoscopy (10 Years) 1961 Annual Physical 1964 Hepatitis C 1979 DTaP, Tdap and Td Vaccines ( 1 - Tdap) 1980 Cervical Cancer Screening Pa p with HPV Testing (Age 30 to 64) Every 5 Years 1991 Cervical Cancer Screening with HPV 1991 Mammogram Screening 2001 Pneumococcal Vaccine: 50+ Ye ars (1 of 1 - PCV) 2011 Zoster Vaccines (1 of 2) 2011 COVID-19 Vaccine ( - 2024-2 6 season) 2025 Influenza Adult (#1) 2025 RSV Immunization or 60+ Years (1 - 1-dose 75+ series) 2036 Hepatitis A Vaccines Aged Out No long er eligible based on patient's age to complete this topic Meningococcal B Vaccine Aged Out No l onger eligible based on patient's age to complete this topic Meningococcal Vaccine Aged Out No srinivas jules eligible based on patient's age to complete this topic RSV Immunizations Under 20 Months Aged Out No longer eligible based on patient's age to complete this topic
--- OUTSIDE RECORDS SUMMARY | 2025-08-28 15:26 | XMS_ITS | Encounter Summary ---
Author Organization [facility] Care Team Providers Care Electrical Technician Instructor Name Role Phone Daryl Garcia MD Primary Care Provider [phone] Encounter Details Date Type Department Care Team (Latest Contact Info) Description 06/22/2017 Orders Only [facility] CLINCONV ProviderEdward MD [address] [place] [id number] Social History Tobacco Use Types Packs/Day Years Used Date Smoking Tobacco: Never Alcohol Use Standard Drinks/Week Comments Yes 0 (1 standard drink = 0.6 oz pur e alcohol) Comments Unknown Sex and Gender Information Value Date Recorded Sex Assigned at Not on file 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
== END 2025-08-28 15:19 | disposition home or self-care (01) ==
LOC: ANHFOHIMG 15:22
PROVIDERS: PCP Emergency Medicine; Visit Provider Emergency Medicine
DX: Z12.31 Encounter for screening mammogram for malignant neoplasm of breast (principal)
CPT/HCPCS: 77063; 77067